=== PATIENT | female | born 1955 | race Caucasian/White ===

== ENCOUNTER → 2019-02-17 10:12 | Outpatient (CLI) | payer OTHER, SELFPAY ==
[2019-02-17 10:55] LABS: Add Manual Diff / Slide Review NO; Basophils Absolute Auto 100 /uL (0-100); Eosinophils Absolute Auto 200 /uL (0-450); Eosinophils Percent Auto 2.1 % (2-4); Hematocrit 50.1 % (36-46); Hemoglobin 16.6 g/dL (12.0-16.0); Lymphocytes Absolute Auto 2900 /uL (1100-4500); Lymphocytes Percent Auto 28.8 % (25-40); Mean Corpuscular HGB Conc 33.2 % (30-36); Mean Corpuscular Hemoglobin 29.2 PG (26-34); Monocytes Absolute Auto 700 /uL (0-900); Monocytes Percent Auto 6.9 % (3-14); Neutrophils Absolute Auto 6200 /uL (1500-7000); Neutrophils Percent Auto 61.2 % (50-75); Platelet Count 296 X10^3/uL (150-400); Red Blood Cell Count 5.69 X10^6/uL (4.0-5.2); Red Cell Distribution Width 13.9 % (11.6-14.8); White Blood Cell Count 10.2 X10^3/uL (4.5-11.0)
[2019-02-17 11:43] LABS: Alanine Aminotransferase 30 IU/L (9-52); Albumin 4.9 g/dL (3.5-5.0); Albumin Globulin Ratio 1.8 (1.0-2.8); Alkaline Phosphatase 84 U/L (38-126); Aspartate Aminotransferase 24 IU/L (14-36); BUN Creatinine Ratio 27.8 (6-22); Bilirubin Total 0.5 mg/dL (0.2-1.3); Bilirubin Unconjugated 0.2 mg/dL (0.0-1.1); Blood Urea Nitrogen 25 mg/dL (7-17); Calcium 10.6 mg/dL (8.4-10.2); Carbon Dioxide 26 mmol/L (22-32); Chloride 103 mmol/L (98-107); Estimated Glomerular Filt Rate > 60.0 mL/min (>60); Globulin 2.8 g/dL (1.7-4.1); Glucose 99 mg/dL (80-110); HEMOLYSIS < 15 (0-50); Potassium 4.4 mmol/L (3.4-5.1); Sodium 142 mmol/L (137-145); Total Protein 7.7 g/dL (6.3-8.2)
[2019-02-17 11:57] LABS: Free T4, Direct Thyroxine 0.91 ng/dL (0.78-2.19)
[2019-02-17 12:11] LABS: Thyroid Stimulating Hormone 2.64 uIU/mL (0.47-4.68)
== END ==
PROVIDERS: Visit Provider Psychiatry & Neurology Psychiatry
DX: F32.9 Major depressive disorder, single episode, unspecified (principal)
CPT/HCPCS: 36415; 80053; 80076; 84439; 84443; 85025

== ENCOUNTER → 2020-02-16 09:55 | Outpatient (CLI) | payer OTHER, SELFPAY ==
[2020-02-16 10:36] LABS: Hematocrit 43.1 % (36-46); Hemoglobin 14.6 g/dL (12.0-16.0); Mean Corpuscular HGB Conc 33.7 % (30-36); Mean Corpuscular Hemoglobin 29.6 PG (26-34); Mean Corpuscular Volume 87.7 fL (80-100); Platelet Count 299 X10^3/uL (150-400); Red Blood Cell Count 4.92 X10^6/uL (4.0-5.2); Red Cell Distribution Width 13.5 % (11.6-14.8); White Blood Cell Count 8.7 X10^3/uL (4.5-11.0)
[2020-02-16 10:43] LABS: Alanine Aminotransferase 17 IU/L (<35); Albumin 4.7 g/dL (3.5-5.0); Albumin Globulin Ratio 1.7 (1.0-2.8); Alkaline Phosphatase 81 U/L (38-126); Aspartate Aminotransferase 22 IU/L (14-36); BUN Creatinine Ratio 38.6 (6-22); Bilirubin Total 0.5 mg/dL (0.2-1.3); Blood Urea Nitrogen 34 mg/dL (7-17); Carbon Dioxide 24 mmol/L (22-32); Chloride 105 mmol/L (98-107); Estimated Glomerular Filt Rate > 60.0 mL/min (>60); Globulin 2.7 g/dL (1.7-4.1); Glucose 104 mg/dL (80-110); HEMOLYSIS < 15 (0-50); Potassium 4.6 mmol/L (3.4-5.1); Sodium 138 mmol/L (137-145); Total Protein 7.4 g/dL (6.3-8.2)
== END ==
PROVIDERS: Referring Provider Nurse Practitioner Family; Visit Provider Nurse Practitioner Family
DX: Z00.00 Encounter for general adult medical examination without abnormal findings (principal); I10 Essential (primary) hypertension
CPT/HCPCS: 36415; 80053; 85027

== ENCOUNTER → 2020-08-06 08:59 | Outpatient (CLI) | payer MEDICARE, OTHER, SELFPAY ==
--- NOTE | 2020-08-06 09:01 | DI.MG.S_ITS ---
BILATERAL DIGITAL SCREENING MAMMOGRAM 3D/2D WITH CAD: 08/06/2020 CLINICAL: Routine screening. Comparison is made to exams dated: 10/12/2009 mammogram and 10/22/2017 mammogram - outside location. The tissue of both breasts is heterogeneously dense. This may lower the sensitivity of mammography. Current study was also evaluated with a Computer Aided Detection (CAD) system. There are calcifications in the right breast. No significant masses, calcifications, or other findings are seen in either breast. There has been no significant interval change. IMPRESSION: BENIGN There is no mammographic evidence of malignancy. A 1 year screening mammogram is recommended. This exam was interpreted at Station ID: [id number]. NOTE: For mammograms, a report in lay terms will be sent to the patient. Approximately 15% of breast malignancies will not be visualized mammographically. In the management of a palpable breast mass, a negative mammogram must not discourage biopsy of a clinically suspicious lesion. Electronically Signed By: Romero Salas M.D. at/:08/08/2020 09:09:11 letter sent: Normal Exam ACR BI-RADS Category 2: Benign Finding(s) [id number]
== END ==
PROVIDERS: PCP Nurse Practitioner Family; Referring Provider Nurse Practitioner Family; Visit Provider Nurse Practitioner Family
DX: Z12.31 Encounter for screening mammogram for malignant neoplasm of breast (principal)
CPT/HCPCS: 77063; 77067

== ENCOUNTER → 2020-12-27 14:59 | Outpatient (CLI) | payer MEDICARE, OTHER, SELFPAY ==
--- NOTE | 2020-12-27 15:05 | DI.RAD.S_ITS ---
PROCEDURE: XR LUMBAR SPINE 2-3V INDICATIONS: pain TECHNIQUE: 3 views of the lumbar spine were acquired. COMPARISON: None. FINDINGS: Bones: 5 [id number] vertebrae are present. There is grade 1 retrolisthesis of L1 on L2, L2 on L3, L3 on L4-L4 on L5. The greatest retrolisthesis is L2 on L3 measuring 6 mm. Overall [id number] disc space narrowing is present throughout the lumbar spine most severe at L2-3, L3-4. Moderate foraminal narrowing is noted L5-S1. No vertebral body compression fractures. No suspicious bony lesions. Soft tissues: Overlying bowel gas pattern is normal. No suspicious soft tissue calcifications. IMPRESSION: Degenerative changes most notable at L5-S1. Dictated by: Kristin Naik M.D. on 12/27/2020 at 15:47 Approved by: Kristin Naik M.D. on 12/27/2020 at 15:55
== END ==
PROVIDERS: PCP Nurse Practitioner Family; Referring Provider Nurse Practitioner Family; Visit Provider Nurse Practitioner Family
DX: M51.37 Other intervertebral disc degeneration, lumbosacral region (principal)
CPT/HCPCS: 72100

== ENCOUNTER → 2021-01-02 08:01 | Outpatient (CLI) | payer MEDICARE, OTHER, SELFPAY ==
[2021-01-02 08:49] LABS: Hematocrit 41.8 % (36-46); Hemoglobin 13.8 g/dL (12.0-16.0); Mean Corpuscular HGB Conc 33.1 % (30-36); Mean Corpuscular Hemoglobin 29.2 PG (26-34); Mean Corpuscular Volume 88.2 fL (80-100); Platelet Count 317 X10^3/uL (150-400); Red Blood Cell Count 4.74 X10^6/uL (4.0-5.2); Red Cell Distribution Width 13.7 % (11.6-14.8); White Blood Cell Count 8.8 X10^3/uL (4.5-11.0)
[2021-01-02 09:38] LABS: Alanine Aminotransferase 17 IU/L (<35); Albumin 4.3 g/dL (3.5-5.0); Albumin Globulin Ratio 1.7 (1.0-2.8); Alkaline Phosphatase 68 U/L (38-126); Aspartate Aminotransferase 21 IU/L (14-36); BUN Creatinine Ratio 33.7 (6-22); Bilirubin Total 0.5 mg/dL (0.2-1.3); Blood Urea Nitrogen 33 mg/dL (7-17); Calcium 9.9 mg/dL (8.4-10.2); Carbon Dioxide 23 mmol/L (22-32); Chloride 102 mmol/L (98-107); Cholesterol 251 mg/dL (140-199); Globulin 2.5 g/dL (1.7-4.1); Glucose 93 mg/dL (80-110); HDL Cholesterol 68 mg/dL (40-60); HEMOLYSIS < 15 (0-50); LDL Cholesterol Calculated 163 mg/dL (<100); Potassium 4.9 mmol/L (3.4-5.1); Sodium 136 mmol/L (137-145); Total Protein 6.8 g/dL (6.3-8.2); Triglycerides 100 mg/dL (35-150)
[2021-01-02 18:27] LABS: Creatinine Urine Random 210.4 mg/dL
[2021-01-02 18:33] LABS: Microalbumi Creatinin Ratio Ur 4.7 ug/mg CR (<30)
== END ==
PROVIDERS: PCP Nurse Practitioner Family; Referring Provider Nurse Practitioner Family; Visit Provider Nurse Practitioner Family
DX: I10 Essential (primary) hypertension (principal); Z13.6 Encounter for screening for cardiovascular disorders
CPT/HCPCS: 36415; 80053; 80061; 82043; 82570; 85027

== ENCOUNTER → 2021-02-09 06:58 | Outpatient (CLI) | payer MEDICARE, OTHER, SELFPAY ==
--- NOTE | 2021-02-09 07:00 | DI.MRI.S_ITS ---
PROCEDURE: MR LUMBAR SPINE WO CON INDICATIONS: exac of back pain TECHNIQUE: Noncontrast sagittal T1 spin echo and T2 fast echo, sagittal STIR, axial T1 and T2 fast spin echo through the lumbar spine. In cases with scoliosis, additional coronal T2 fast spin echo may be performed. COMPARISON: [facility], CR, XR LUMBAR SPINE 2-3V, 12/27/2020, 15:31. FINDINGS: Image quality: Excellent. Alignment and Curvature: There is normal bony alignment. Bone Marrow: Marrow is of normal overall signal. No acute vertebral body compression fractures. Spinal Cord: Conus medullaris terminates at the L2 level. Visualized cord demonstrates normal signal and size. Paraspinous Soft Tissues: No paravertebral masses. T12-L1: Normal appearance. L1-L2: Normal appearance. L2-L3: Loss of disc signal and height. Mild to moderate diffuse disc bulge. Mild narrowing of the central canal. No neural foraminal narrowing. No neural compression. L3-L4: Loss of disc signal and height. Mild, diffuse disc bulge. Mild bilateral facet hypertrophy. Mild to moderate narrowing of the central canal. No neural foraminal narrowing. No neural compression. L4-L5: Loss of disc signal. Mild, diffuse disc bulge. Moderate left and mild right facet hypertrophy. Mild narrowing of the central canal. Mild left neural foraminal narrowing. No neural compression L5-S1: Loss of disc signal. Mild bilateral facet hypertrophy. No central stenosis. No neural foraminal narrowing. No neural compression. Fissure noted in the left foraminal annulus. IMPRESSION: 1. Multilevel degenerative disc disease. 2. Multilevel facet arthropathy. 3. No severe central canal narrowing. 4. No severe neural foraminal narrowing. 5. No neural compression. 6. L5-S1 disc annulus fissure. Dictated by: Violet Bazzi MD, PhD on 02/09/2021 at 12:02 Approved by: Violet Bazzi MD, PhD on 02/09/2021 at 12:04
== END ==
PROVIDERS: PCP Nurse Practitioner Family; Referring Provider Nurse Practitioner Family; Visit Provider Nurse Practitioner Family
DX: M54.5 Low back pain (principal); M51.36 Other intervertebral disc degeneration, lumbar region; M47.816 Spondylosis without myelopathy or radiculopathy, lumbar region; M47.817 Spondylosis without myelopathy or radiculopathy, lumbosacral region; G89.29 Other chronic pain
CPT/HCPCS: 72148

== ENCOUNTER → 2022-08-14 17:09 | Outpatient (CLI) | payer MEDICARE, OTHER, SELFPAY ==
[2022-08-14 18:13] LABS: Creatinine Urine Random 133.3 mg/dL
[2022-08-14 18:19] LABS: Microalbumin Urine Random 1.2 mg/dL (0-1.6)
== END ==
PROVIDERS: PCP Family Medicine; Referring Provider Family Medicine; Visit Provider Family Medicine
DX: E61.1 Iron deficiency (principal); E78.2 Mixed hyperlipidemia; I10 Essential (primary) hypertension
CPT/HCPCS: 82043; 82570

== ENCOUNTER → 2022-08-29 07:11 | Outpatient (CLI) | payer MEDICARE, OTHER, SELFPAY ==
[2022-08-29 08:17] LABS: Hemoglobin A1C% w Est Avg Glu 5.8 % (4.0-6.0)
[2022-08-29 08:31] LABS: Alanine Aminotransferase 18 IU/L (<35); Albumin 4.3 g/dL (3.5-5.0); Albumin Globulin Ratio 1.8 (1.0-2.8); Alkaline Phosphatase 66 U/L (38-126); Aspartate Aminotransferase 20 IU/L (14-36); Bilirubin Total 0.4 mg/dL (0.2-1.3); Blood Urea Nitrogen 27 mg/dL (7-17); Calcium 9.3 mg/dL (8.4-10.2); Carbon Dioxide 25 mmol/L (22-32); Chloride 103 mmol/L (98-107); Cholesterol 202 mg/dL (140-199); Estimated Glomerular Filt Rate > 60 mL/min (>60); Globulin 2.4 g/dL (1.7-4.1); Glucose 99 mg/dL (80-110); HDL Cholesterol 86 mg/dL (40-60); HEMOLYSIS < 15 (0-50); LDL Cholesterol Calculated 97 mg/dL (<100); Potassium 4.3 mmol/L (3.4-5.1); Sodium 138 mmol/L (137-145); Total Protein 6.7 g/dL (6.3-8.2); Triglycerides 93 mg/dL (35-150)
[2022-08-29 09:03] LABS: Ferritin 88 ng/mL (11-264)
[2022-08-31 08:36] LABS: Insulin Level Total 15.3 uIU/mL (2.6-24.9)
== END ==
PROVIDERS: PCP Family Medicine; Referring Provider Family Medicine; Visit Provider Family Medicine
DX: R73.9 Hyperglycemia, unspecified (principal); E61.1 Iron deficiency; I10 Essential (primary) hypertension; E78.2 Mixed hyperlipidemia; E66.9 Obesity, unspecified
CPT/HCPCS: 36415; 80053; 80061; 82728; 83036; 83525

== ENCOUNTER → 2023-03-11 16:48 | Outpatient (CLI) | payer MEDICARE, OTHER, SELFPAY ==
[2023-03-11 18:27] LABS: NT-proBNP (BNP-Adult 18+) 92 pg/mL (<125)
[2023-03-11 18:37] LABS: Alanine Aminotransferase 17 IU/L (<35); Albumin 4.5 g/dL (3.5-5.0); Albumin Globulin Ratio 1.6 (1.0-2.8); Alkaline Phosphatase 70 U/L (38-126); Aspartate Aminotransferase 24 IU/L (14-36); Bilirubin Total 0.4 mg/dL (0.2-1.3); Blood Urea Nitrogen 33 mg/dL (7-17); Calcium 9.8 mg/dL (8.4-10.2); Carbon Dioxide 23 mmol/L (22-32); Chloride 105 mmol/L (98-107); Estimated Glomerular Filt Rate 60 mL/min (>60); Globulin 2.8 g/dL (1.7-4.1); Glucose 107 mg/dL (80-110); HEMOLYSIS 20 (0-50); Potassium 3.7 mmol/L (3.4-5.1); Sodium 136 mmol/L (137-145); Total Protein 7.3 g/dL (6.3-8.2)
== END ==
PROVIDERS: Family Provider Family Medicine; PCP Family Medicine; Referring Provider Family Medicine; Visit Provider Family Medicine
DX: M79.89 Other specified soft tissue disorders (principal); F32.9 Major depressive disorder, single episode, unspecified; F41.9 Anxiety disorder, unspecified; M79.7 Fibromyalgia
CPT/HCPCS: 36415; 80053; 83880

== ENCOUNTER 2023-03-21 07:30 | Outpatient (RCR) | payer MEDICARE, OTHER, SELFPAY ==
--- NOTE | 2023-01-07 18:39 | PT.OIE ---
Current Diagnoses Pain in right shoulder (01/07/23) Cervicalgia (01/07/23) Low back pain, unspecified (01/07/23) Dorsalgia, unspecified (01/07/23) Pain in right arm (01/07/23) Past Medical History (Last Updated 11/28/22 @ 09:47 by Pinky Villafana DO) Acute exacerbation of chronic low back pain (11/2020) Anxiety (~1983) Chicken pox (~1964) Depression (~1983) Elevated blood pressure reading in office without diagnosis of hypertension Fibromyalgia (~2007) Former smoker Mixed hyperlipidemia (12/2020) Postmenopausal Visit Care Team Role Provider Type Pinky Villafana DO Attending Provider Physician Family Provider Primary Care Provider Referring Provider Specialty: Medical Address: [address] [place] [address], [facility] [address], [address] Email: [email or web address] Physical Therapy Initial Evaluation PT-OP-A Visit Information Start: 01/04/23 18:27 Freq: Status: Active Protocol: Document 01/07/23 08:03 LRN (Rec: 01/07/23 08:52 LRN [id number]) Out-Patient Physical Therapy Visit Information Visit Information Visit Type Initial Evaluation Visit Start Time 08:03 Visit Stop Time 08:51 Total Visit Minutes 48 Visit Number 1 Evaluation Information Evaluation Date 01/07/23 Precautions Precautions Multilevel DDD (L2-L3, L3-L4, L4-L5), depression, fibromyalgia PT-OP-B Current Condition Start: 01/04/23 18:27 Freq: Status: Active Protocol: Document 01/07/23 08:03 LRN (Rec: 01/07/23 08:52 LRN [id number]) Current Condition History of Current Condition Onset Date 1 yr ago. Current Complaints Essence LB, hip>thigh pain, groin pain, R neck/shoulder pain. History of Current Condition Pt reports the major problem is her spine. 5yr ago she was diagnosed with multiple pxs involving L2, L3, L4, L5 and was only able to tolerate water therapy for 2 yrs. She found it extremely helpful for 3 yrs. She was able to walk again. She now feels like her condition is back to what it was before having water therapy. Last year she tried to do what she did in the water previously and it was helpful but because of spousal illness and loss of her spouse, she was unable to continue her water exercise. Spouse last year. Pt reports her condition has progressively worsened and now she has pain in bilateral lower back, essence groin pelvic region, essence hips that radiates 1/2 [address] to knees (R>L ), and in the R neck/shoulder- brachium (pt is R handed). 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 Prior Treatments and Tests Five yrs ago did water therapy for 2 yrs. Two Chiropractor treatments. First time found helpful, not 2nd time (treatments 1.5 yrs ago and 3 months ago). 01/2021 MRI: Multilevel DDD ( L2-L3, L3-L4, L4-L5) with central canal narrowing L3-L4, L4-L5 and foraminal narrowing at L4-L5. Fissure noted in L5-S1 L foraminal annulus. Future Testing and Treatments Planned None Treatment Goals Patient/Caregiver Goals Pt goal is: - to avoid having cortisone injections in the spine; therefore wants to try PT to get better first, and to relieve R neck/arm pain. - Decrease LBP to 2-3/10 and be able to lift leg to put socks and lessen the feeling of weight in the legs so she can stand 20-30 minutes, -Be able to do activities without having to immediately sit afterwards. -No pain in R neck/shoulder/ arm. 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 Baseline Function- Recreation/Hobbies Quilter Current Functional Impairments (Reported) Functional Limitations- Mobility/Gait Can't stand do chores without having to immediately sit down . Sleeping is manageable. 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 PT-OP-C Subjective Start: 01/04/23 18:27 Freq: Status: Active Protocol: Document 01/07/23 08:03 LRN (Rec: 01/07/23 08:52 LRN [id number]) Patient Questionnaires Neck Disability Index NDI Score 21 Neck Disability Index Impairment 40 to 59% Impaired (Score 20- 29) Oswestry Low Back Index Oswestry Score 60 Oswestry Impairment 40 to 59% Impaired (Score 40- 59) Quick Dash- Upper Extremity Quick Dash UE Score 63.6 Quick Dash UE Impairment 60 to 79% Impaired (Score 60- 79) OP-PT Pain Assessment Pain Assessment Grid Paper Pain Assessment Grid Completed Yes Location L/S Pain Location Details Down spine and R lateral hip into bilateral groin. Intensity 7 Scale Used Numeric (0 - 10) Description Aching Description- Other toothache pain Frequency Constant R arm Pain Location Details R brachium Intensity 7 Scale Used Numeric (0 - 10) Description Aching Description- Other Toothache pain, increases with movement Frequency Constant PT-OP-H Neuro Start: 01/04/23 18:27 Freq: Status: Active Protocol: Document 01/07/23 08:03 LRN (Rec: 01/07/23 11:08 LRN [id number]) Sensation Evaluation Gross Sensation Gross Sensation WNL Deep Tendon Reflex & Clonus Assessment Deep Tendon Reflex Bilateral Patellar Deep Tendon Reflex 2+ Normal PT-OP-J Posture/Palpation/Skin Start: 01/04/23 18:27 Freq: Status: Active Protocol: Document 01/07/23 08:03 LRN (Rec: 01/07/23 08:52 LRN [id number]) Posture Evaluation Position Standing Head/C-Spine Posture Forward Head T-Spine Posture Increased Kyphosis L-Spine Posture Decreased Lordosis Shoulder Posture (R) Elevated Scapula Posture (R) Retracted Hip Posture (L) Externally Rotated Comments Posture Comments Dowagers hump, L leg larger in diameter PT-OP-K Range of Motion Start: 01/04/23 18:27 Freq: Status: Active Protocol: Document 01/07/23 08:03 LRN (Rec: 01/07/23 08:52 LRN [id number]) Lumbar Spine Range of Motion Lumbar Spine Active Degrees Testing Position Standing Flexion 48 Extension 15 Lateral Flexion Left 6 Lateral Flexion Right 6 Comments Pain with R SB. Hip Goniometric Range of Motion Hip Right Passive Testing Position Supine Straight Leg Raise 45 Internal Rotation 5 External Rotation 65 Left Passive Testing Position Supine Straight Leg Raise 60 Internal Rotation 10 External Rotation 75 PT-OP-L Special Tests Start: 06/16/23 18:27 Freq: Status: Active Protocol: Document 01/07/23 08:03 LRN (Rec: 01/07/23 08:52 LRN [id number]) Special Tests Cervical Spine Special Tests Spurling's Test Test Results - bilaterally Foraminal Compression Test Results - Upper Limb Tension Test Test Results + R ulnar n; tightness median and radial n. Lumbar Spine Special Tests Manual Traction Test Results + Comments Relief of pain Straight Leg Raise Test Results + bilaterally PT-OP-M Strength Start: 01/04/23 18:27 Freq: Status: Active Protocol: Document 01/07/23 08:03 LRN (Rec: 01/07/23 08:52 LRN [id number]) Hand Sprue Knocker/Pinch Strength Hand Dominance Hand Dominance Right Knee Strength Knee Manual Muscle Testing Right Flexion (S2) 4 Good Extension (L3) 5 Normal Left Flexion (S2) 4 Good Extension (L3) 5 Normal Ankle/Foot Strength Ankle and Foot Manual Muscle Testing Right Dorsiflexion (L4) 3 Fair Plantarflexion (S1) 5 Normal Left Dorsiflexion (L4) 4 Good Plantarflexion (S1) 5 Normal PT-OP-Q Treatments Start: 01/04/23 18:27 Freq: Status: Active Protocol: Document 01/07/23 08:03 LRN (Rec: 01/07/23 11:07 LRN [id number]) Self-Care/Home Management Treatment Education Patient Education Home Exercise Program,Pain Management Other Education Discussed results of evaluation, goals, and plan of care (POC). Pt agreeable to goals and POC. Briefly discussed use of hot/ cold for pain management. Activities Self-Care/Home Management Activities I/S pt in HEP: Cervical stretches: SB and Rot (10 SH) 2-3x/day or more; Improve postural awareness with posture correction when awake. PT-OP-T Assessment and Plan Start: 01/04/23 18:27 Freq: Status: Active Protocol: Document 01/07/23 08:03 LRN (Rec: 01/07/23 08:52 LRN [id number]) Physical Therapy Assessment Rehab Potential Rehabilitation Potential Good Evaluation Complexity Number of Personal Factors/Comorbidities 1-2 Number of Body Systems Impaired 4 or More Clinical Presentation at Evaluation Evolving Impairments Impairments Activity Tolerance,Gait,Pain, Posture,ROM,Sensation,Soft Tissue Mobility,Strength, Transfers Goals Three Impairment Decreased strength with decreased function Impairment JULIET 60, (40-59% impaired, score 40-59) Neck Disability 21 (40-59% impaired, score 20-29) UE QuickDASH 63.6 (60-795 impaired, score 60-79) Weakness LE's Short Term Goal (STG) Improve strength to improve function per JULIET score 20-39. STG Duration 02/21/23 Director Of Online Education Goal (LTG) Improve strength/endurance of LE's to be able to do activities (walking) without having to immediately sit afterwards. LTG Duration 04/07/23 Two Impairment Back/essence hip and groin/neck and arm pain Impairment Neck/arm pain rated 7/10. LBP essence groin pain rated 7/10. Short Term Goal (STG) Avoid having cortisone injections and relieve R neck/ arm pain. STG Duration 02/21/23 [facility] Goal (LTG) Decrease LBP to 2-3/10 and be able to lift leg to put socks and lessen the feeling of weight in the legs so she can stand 20-30 minutes, LTG Duration 04/07/23 One Impairment Lacks self care HEP, pt has self care aquatic program. Short Term Goal (STG) Pt will be educated in proper Posture, transfers, and body mechanics to minimize LBP onset. STG Duration 02/21/23 Director Of Online Education Goal (LTG) Pt will be educated in a self care HEP to improve mobility and core/neck stability to decrease pain. LTG Duration 04/07/23 Assessment Summary Assessment Pt is a 67 yo female who presents with + PSLR and UE/LE neural tension due to multilevel DDD (L2-L3, L3-L4, L4-L5). She presents with postural dysfunction and lack of self care techniques for pain management and exercises to promote improved function. The pt is functionally limited due to her pain and will benefit from skillled physical therapy to work towards achieving the above stated goals. The pt would benefit from an aquatic therapy that we do not provide at this time; therefore the pt is encouraged to try and resume some of the water therapy ex's that she was previously instructed in during her prior therapy rehab program. Physical Therapy Plan Frequency and Duration Frequency of Treatment 2x/Week Plan of Care Start Date 01/07/23 Plan of Care End Date 04/07/23 Therapeutic Interventions Therapeutic Interventions Home Exercise Program,Joint Mobilizations,Manual Therapy, Neuromuscular Re-education, Patient/Caregiver Education, Self-Care/Home Management,Soft Tissue Mobilization,Taping, Therapeutic Activities, Therapeutic Exercises Modalities Cold Pack/Ice Massage,Electric Stimulation,Hot Packs, Traction- Mechanical, Ultrasound Next Visit Focus/Plan Next Note Type Treatment Note Next Visit Plan Assess achillies, UE DTRs; Lumbar/cervical/shoulder soft tissue palp; strength ankle EV /IV, hip/trunk/cervical-UE; ROM of LB,neck; Special Tests: [facility]. POC: Lumbar herniated disc rehab, cervical soft tissue dysfunction rehab. Manual: lumbar traction, mob of T/S and. Ex: Core stab and Cervical posture stab & ROM, C. stretches, pec stretch. Neural: Stab & Sciatic ( gentle)/UE neural glides. Educ: Posture, transfer training, body mechanics. Modalities: Education in pain managment, ?Ktape, MH/IFES.
--- NOTE | 2023-01-07 18:40 | PT.OPPOC ---
Physical, Occupational & Speech Therapy At [facility] Current Diagnoses Pain in right shoulder (01/07/23) Cervicalgia (01/07/23) Low back pain, unspecified (01/07/23) Dorsalgia, unspecified (01/07/23) Pain in right arm (01/07/23) Visit Care Team Role Provider Type Pinky Villafana DO Attending Provider Physician Family Provider Primary Care Provider Referring Provider Specialty: Medical Address: [address] [place] [address], [address], [address] Email: [email or web address] Plan Of Care PT-OP-T Assessment and Plan Start: 01/04/23 18:27 Freq: Status: Active Protocol: Document 01/07/23 08:03 LRN (Rec: 01/07/23 08:52 LRN [id number]) Physical Therapy Assessment Rehab Potential Rehabilitation Potential Good Evaluation Complexity Number of Personal Factors/Comorbidities 1-2 Number of Body Systems Impaired 4 or More Clinical Presentation at Evaluation Evolving Impairments Impairments Activity Tolerance,Gait,Pain, Posture,ROM,Sensation,Soft Tissue Mobility,Strength, Transfers Goals Three Impairment Decreased strength with decreased function Impairment JULIET 60, (40-59% impaired, score 40-59) Neck Disability 21 (40-59% impaired, score 20-29) UE QuickDASH 63.6 (60-795 impaired, score 60-79) Weakness LE's Short Term Goal (STG) Improve strength to improve function per JULIET score 20-39. STG Duration 02/21/23 [facility] Goal (LTG) Improve strength/endurance of LE's to be able to do activities (walking) without having to immediately sit afterwards. LTG Duration 04/07/23 Two Impairment Back/essence hip and groin/neck and arm pain Impairment Neck/arm pain rated 7/10. LBP essence groin pain rated 7/10. Short Term Goal (STG) Avoid having cortisone injections and relieve R neck/ arm pain. STG Duration 02/21/23 Purchasing Administrator Goal (LTG) Decrease LBP to 2-3/10 and be able to lift leg to put socks and lessen the feeling of weight in the legs so she can stand 20-30 minutes, LTG Duration 04/07/23 One Impairment Lacks self care HEP, pt has self care aquatic program. Short Term Goal (STG) Pt will be educated in proper Posture, transfers, and body mechanics to minimize LBP onset. STG Duration 02/21/23 [facility] Goal (LTG) Pt will be educated in a self care HEP to improve mobility and core/neck stability to decrease pain. LTG Duration 04/07/23 Assessment Summary Assessment Pt is a 67 yo female who presents with + PSLR and UE/LE neural tension due to multilevel DDD (L2-L3, L3-L4, L4-L5). She presents with postural dysfunction and lack of self care techniques for pain management and exercises to promote improved function. The pt is functionally limited due to her pain and will benefit from skillled physical therapy to work towards achieving the above stated goals. The pt would benefit from an aquatic therapy that we do not provide at this time; therefore the pt is encouraged to try and resume some of the water therapy ex's that she was previously instructed in during her prior therapy rehab program. Physical Therapy Plan Frequency and Duration Frequency of Treatment 2x/Week Plan of Care Start Date 01/07/23 Plan of Care End Date 04/07/23 Therapeutic Interventions Therapeutic Interventions Home Exercise Program,Joint Mobilizations,Manual Therapy, Neuromuscular Re-education, Patient/Caregiver Education, Self-Care/Home Management,Soft Tissue Mobilization,Taping, Therapeutic Activities, Therapeutic Exercises Modalities Cold Pack/Ice Massage,Electric Stimulation,Hot Packs, Traction- Mechanical, Ultrasound Next Visit Focus/Plan Next Note Type Treatment Note Next Visit Plan Assess achillies, UE DTRs; Lumbar/cervical/shoulder soft tissue palp; strength ankle EV /IV, hip/trunk/cervical-UE; ROM of LB,neck; Special Tests: [facility]. POC: Lumbar herniated disc rehab, cervical soft tissue dysfunction rehab. Manual: lumbar traction, mob of T/S and. Ex: Core stab and Cervical posture stab & ROM, C. stretches, pec stretch. Neural: Stab & Sciatic ( gentle)/UE neural glides. Educ: Posture, transfer training, body mechanics. Modalities: Education in pain managment, ?Ktape, MH/IFES. Plan of Care Dates Plan of Care Start Date 01/07/23 Plan of Care End Date 04/07/23 Electronically Signed by: Lucrecia Brink, PT 01/07/23 6204 If you are in agreement with this Plan of Care, please return a signed and dated copy. I have reviewed this Plan of Care and certify that the skilled therapy services above are required to meet the patient?s needs. Physician Signature Date Printed Name and Credentials Clinical Instructor Signature Printed Name and Credentials
--- NOTE | 2023-01-11 16:13 | PT.OTN ---
Current Diagnoses Pain in right shoulder (01/11/23) Cervicalgia (01/11/23) Low back pain, unspecified (01/11/23) Dorsalgia, unspecified (01/11/23) Pain in right arm (01/11/23) Physical Therapy Treatment Note PT-OP-A Visit Information Start: 01/04/23 18:27 Freq: Status: Active Protocol: Document 01/11/23 15:03 LRN (Rec: 01/11/23 16:12 LRN [id number]) Out-Patient Physical Therapy Visit Information Visit Information Visit Type Treatment Note Visit Start Time 15:03 Visit Stop Time 15:47 Total Visit Minutes 43 Visit Number 2 Evaluation Information Evaluation Date 01/07/23 Precautions Precautions Multilevel DDD (L2-L3, L3-L4, L4-L5), depression, fibromyalgia PT-OP-B Current Condition Start: 01/04/23 18:27 Freq: Status: Active Protocol: Document 01/07/23 08:03 LRN (Rec: 01/07/23 08:52 LRN [id number]) Current Condition History of Current Condition Onset Date 1 yr ago. Current Complaints Cullen LB, hip>thigh pain, groin pain, R neck/shoulder pain. History of Current Condition Pt reports the major problem is her spine. 5yr ago she was diagnosed with multiple pxs involving L2, L3, L4, L5 and was only able to tolerate water therapy for 2 yrs. She found it extremely helpful for 3 yrs. She was able to walk again. She now feels like her condition is back to what it was before having water therapy. Last year she tried to do what she did in the water previously and it was helpful but because of spousal illness and loss of her spouse, she was unable to continue her water exercise. Spouse last year. Pt reports her condition has progressively worsened and now she has pain in bilateral lower back, cullen groin pelvic region, cullen hips that radiates 1/2 [address] to knees (R>L ), and in the R neck/shoulder- brachium (pt is R handed). 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 Prior Treatments and Tests Five yrs ago did water therapy for 2 yrs. Two Chiropractor treatments. First time found helpful, not 2nd time (treatments 1.5 yrs ago and 3 months ago). 01/2021 MRI: Multilevel DDD ( L2-L3, L3-L4, L4-L5) with central canal narrowing L3-L4, L4-L5 and foraminal narrowing at L4-L5. Fissure noted in L5-S1 L foraminal annulus. Future Testing and Treatments Planned None Treatment Goals Patient/Caregiver Goals Pt goal is: - to avoid having cortisone injections in the spine; therefore wants to try PT to get better first, and to relieve R neck/arm pain. - Decrease LBP to 2-3/10 and be able to lift leg to put socks and lessen the feeling of weight in the legs so she can stand 20-30 minutes, -Be able to do activities without having to immediately sit afterwards. -No pain in R neck/shoulder/ arm. 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 Baseline Function- Recreation/Hobbies Quilter Current Functional Impairments (Reported) Functional Limitations- Mobility/Gait Can't stand do chores without having to immediately sit down . Sleeping is manageable. 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 PT-OP-C Subjective Start: 01/04/23 18:27 Freq: Status: Active Protocol: Document 01/11/23 15:03 LRN (Rec: 01/11/23 16:12 LRN [id number]) OP-PT Subjective Patient Comments Patient Comments Same. Pain rated 4/10 to start in neck and back. Post therapy pain in LB/neck rated 0/10. Pt reported only discomfort was in the L brachium. PT-OP-H Neuro Start: 01/04/23 18:27 Freq: Status: Active Protocol: Document 01/07/23 08:03 LRN (Rec: 01/07/23 11:08 LRN [id number]) Sensation Evaluation Gross Sensation Gross Sensation WNL Deep Tendon Reflex & Clonus Assessment Deep Tendon Reflex Bilateral Patellar Deep Tendon Reflex 2+ Normal PT-OP-J Posture/Palpation/Skin Start: 01/04/23 18:27 Freq: Status: Active Protocol: Document 01/11/23 15:03 LRN (Rec: 01/11/23 16:12 LRN [id number]) Palpation Assessment Location Thoracic region Palpation Location Thoracic T1-T6 Paraspinals and Spinous processes Palpation Findings Soft Tissue Tightness, Tenderness Palpation Details Spinous processess tender with PA glides. Shoulders Palpation Location Cullen Deltoids Palpation Findings Tenderness Palpation Details General deltoids. Cervical region Palpation Location Subocciptal and paraspinals Palpation Findings Soft Tissue Tightness, Tenderness Palpation Details Tight L>R UT and paraspinals PT-OP-K Range of Motion Start: 01/04/23 18:27 Freq: Status: Active Protocol: Document 01/11/23 15:03 LRN (Rec: 01/11/23 16:12 LRN [id number]) Cervical Spine Range of Motion Cervical Spine Active Degrees Testing Position Sitting Flexion 21 Extension 38 Rotation Left 48 Rotation Right 48 Lateral Flexion Left 13 Lateral Flexion Right 20 PT-OP-L Special Tests Start: 01/04/23 18:27 Freq: Status: Active Protocol: Document 01/11/23 15:03 LRN (Rec: 01/11/23 16:12 LRN [id number]) Special Tests Cervical Spine Special Tests Vertebral Artery Test Results - Right side, Lumbar Spine Special Tests Manual Traction Test Results + Comments Relief of pain PT-OP-M Strength Start: 01/04/23 18:27 Freq: Status: Active Protocol: Document 01/11/23 15:03 LRN (Rec: 01/11/23 16:12 LRN [id number]) Cervical Spine Strength Cervical Spine Manual Muscle Testing Testing Position Sitting Flexion (C1-2) 5 Normal Extension 5 Normal Rotation Left 3 Fair Rotation Right 3 Fair Lateral Flexion Left (C3) 5 Normal Lateral Flexion Right (C3) 5 Normal PT-OP-Q Treatments Start: 01/04/23 18:27 Freq: Status: Active Protocol: Document 01/11/23 15:03 LRN (Rec: 01/11/23 16:12 LRN [id number]) Therapeutic Exercises Supine Exercises C. PROM stretch Supine Exercise Name Rotation Side bilateral Reps/Minutes 5' Sitting Exercises Yvan C. strengthenign Sitting Exercise Name Yvan C Strengthening Side bilateral C. AROM Sitting Exercise Name C AROM - FB, Ext, SB, Rot Side bilateral Comments C. AROM taken. Manual Therapy Treatment Soft Tissue Mobilization Subocciptal Body Location Suboccipital Mobilization Type Sustained Pressure Intensity/Depth Superficial Body Position Hooklying Manual Traction Lumbar Details Traction w/belt Body Position Hooklying Reps/Duration 8' Self-Care/Home Management Treatment Education Patient Education Body Mechanics,Joint Protection Other Education Educated and discussed proper log roll transfer sit<>supine. Pt education and brief discussion of proper body mechanics for ADLs. Activities Self-Care/Home Management Activities Issued handout for log roll transfer and body mechanics for ADLs. I/S pt to continue with log roll transfers and proper body mechanics for movement. PT-OP-R Modalities Start: 01/04/23 18:27 Freq: Status: Active Protocol: Document 01/11/23 15:03 LRN (Rec: 01/11/23 16:12 LRN [id number]) Electric Stimulation Electric Stimulation Interferential Current (IFC) Body Location L2>Upper gluteals, cross ~L3- L4 Duration (Minutes) 10 Intensity 33 Target/Sweep Sweep Patient Position Hooklying Combined With Heat/Cold Hot Pack Comments Legs on bolster. 5' Extra to for set up. PT-OP-T Assessment and Plan Start: 01/04/23 18:27 Freq: Status: Active Protocol: Document 01/11/23 15:03 LRN (Rec: 01/11/23 16:12 LRN [id number]) Physical Therapy Assessment Goals Three Impairment Decreased strength with decreased function Impairment JULIET 60, (40-59% impaired, score 40-59) Neck Disability 21 (40-59% impaired, score 20-29) UE QuickDASH 63.6 (60-795 impaired, score 60-79) Weakness LE's Short Term Goal (STG) Improve strength to improve function per JULIET score 20-39. STG Duration 02/21/23 [place] Goal (LTG) Improve strength/endurance of LE's to be able to do activities (walking) without having to immediately sit afterwards. LTG Duration 04/07/23 Two Impairment Back/cullen hip and groin/neck and arm pain Impairment Neck/arm pain rated 7/10. LBP cullen groin pain rated 7/10. Short Term Goal (STG) Avoid having cortisone injections and relieve R neck/ arm pain. STG Duration 02/21/23 Correction Goal (LTG) Decrease LBP to 2-3/10 and be able to lift leg to put socks and lessen the feeling of weight in the legs so she can stand 20-30 minutes, LTG Duration 04/07/23 One Impairment Lacks self care HEP, pt has self care aquatic program. Short Term Goal (STG) Pt will be educated in proper Posture, transfers, and body mechanics to minimize LBP onset. 01/11/23: Educated pt in proper transfers and body mechanics. STG Duration 02/21/23 progressed 01/11/23 (need posture training) Correction Goal (LTG) Pt will be educated in a self care HEP to improve mobility and core/neck stability to decrease pain. LTG Duration 04/07/23 Assessment Summary Assessment Pt presents with + PSLR and UE /LE neural tension due to multilevel DDD (L2-L3, L3-L4, L4-L5), postural dysfunction and lacks pain management techniques and HEP. Request of focus more on spine/LE's so pt can walk. Today, pain is on the L side, but is usually on R side of neck. - Vertebral Artery test bilaterally. Mild decr in neck mobility for flex, ext, SB, and weakness with C/S rotation . Pt had + response to Lumbar traction and MH/EStim to LB, with lingering of tingling after ending stim; therefore pt wanting too high intensity of EStim. Pt reported more intensity, but withheld at 33. Physical Therapy Plan Frequency and Duration Frequency of Treatment 2x/Week Plan of Care Start Date 01/07/23 Plan of Care End Date 04/07/23 Next Visit Focus/Plan Next Note Type Treatment Note Next Visit Plan Focus on spine to decrease pain with walking. Assess achillies ankle & LB ROM, UE DTRs; Lumbar soft tissue palp; strength ankle EV/IV, hip/ trunk/?shoulder. POC: Lumbar herniated disc rehab, cervical soft tissue dysfunction rehab. Manual: lumbar traction, mob of T/S and. Ex: Core stab and Cervical posture stab & ROM, C. stretches (issue HEP), pec stretch. Neural: Stab & Sciatic ( gentle)/UE neural glides. Educ: Posture. Modalities: Education in pain managment, ?Ktape, continue MH/IFES.
--- NOTE | 2023-01-14 10:53 | PT.OTN ---
Current Diagnoses Pain in right shoulder (01/14/23) Cervicalgia (01/14/23) Low back pain, unspecified (01/14/23) Dorsalgia, unspecified (01/14/23) Pain in right arm (01/14/23) Physical Therapy Treatment Note PT-OP-A Visit Information Start: 01/04/23 18:27 Freq: Status: Active Protocol: Document 01/14/23 08:54 LRN (Rec: 01/14/23 09:35 LRN [id number]) Out-Patient Physical Therapy Visit Information Visit Information Visit Type Treatment Note Visit Start Time 08:55 Visit Stop Time 09:40 Total Visit Minutes 45 Visit Number 3 Evaluation Information Evaluation Date 01/07/23 Precautions Precautions Multilevel DDD (L2-L3, L3-L4, L4-L5), depression, fibromyalgia PT-OP-B Current Condition Start: 01/04/23 18:27 Freq: Status: Active Protocol: Document 01/07/23 08:03 LRN (Rec: 01/07/23 08:52 LRN [id number]) Current Condition History of Current Condition Onset Date 1 yr ago. Current Complaints Cullen LB, hip>thigh pain, groin pain, R neck/shoulder pain. History of Current Condition Pt reports the major problem is her spine. 5yr ago she was diagnosed with multiple pxs involving L2, L3, L4, L5 and was only able to tolerate water therapy for 2 yrs. She found it extremely helpful for 3 yrs. She was able to walk again. She now feels like her condition is back to what it was before having water therapy. Last year she tried to do what she did in the water previously and it was helpful but because of spousal illness and loss of her spouse, she was unable to continue her water exercise. Spouse last year. Pt reports her condition has progressively worsened and now she has pain in bilateral lower back, cullen groin pelvic region, cullen hips that radiates 1/2 way to knees (R>L ), and in the R neck/shoulder- brachium (pt is R handed). 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 Prior Treatments and Tests Five yrs ago did water therapy for 2 yrs. Two Chiropractor treatments. First time found helpful, not 2nd time (treatments 1.5 yrs ago and 3 months ago). 01/2021 MRI: Multilevel DDD ( L2-L3, L3-L4, L4-L5) with central canal narrowing L3-L4, L4-L5 and foraminal narrowing at L4-L5. Fissure noted in L5-S1 L foraminal annulus. Future Testing and Treatments Planned None Treatment Goals Patient/Caregiver Goals Pt goal is: - to avoid having cortisone injections in the spine; therefore wants to try PT to get better first, and to relieve R neck/arm pain. - Decrease LBP to 2-3/10 and be able to lift leg to put socks and lessen the feeling of weight in the legs so she can stand 20-30 minutes, -Be able to do activities without having to immediately sit afterwards. -No pain in R neck/shoulder/ arm. 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 Baseline Function- Recreation/Hobbies Quilter Current Functional Impairments (Reported) Functional Limitations- Mobility/Gait Can't stand do chores without having to immediately sit down . Sleeping is manageable. 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 PT-OP-C Subjective Start: 01/04/23 18:27 Freq: Status: Active Protocol: Document 01/14/23 08:54 LRN (Rec: 01/14/23 09:35 LRN [id number]) OP-PT Subjective Patient Comments Patient Comments Pain relief for 8 hrs in the pelvic (anterior groin) and hips and down legs on the sides. The neck/shoulder feels better except at R elbow . Last night unable to sleep on R side at all sometimes can sleep on it 10 minutes or so PT-OP-H Neuro Start: 01/04/23 18:27 Freq: Status: Active Protocol: Document 01/14/23 08:54 LRN (Rec: 01/14/23 10:52 LRN [id number]) Deep Tendon Reflex & Clonus Assessment Deep Tendon Reflex Bilateral Tricep Deep Tendon Reflex 2+ Normal Bilateral Bicep Deep Tendon Reflex 2+ Normal PT-OP-J Posture/Palpation/Skin Start: 01/04/23 18:27 Freq: Status: Active Protocol: Document 01/11/23 15:03 LRN (Rec: 01/11/23 16:12 LRN [id number]) Palpation Assessment Location Thoracic region Palpation Location Thoracic T1-T6 Paraspinals and Spinous processes Palpation Findings Soft Tissue Tightness, Tenderness Palpation Details Spinous processess tender with PA glides. Shoulders Palpation Location Cullen Deltoids Palpation Findings Tenderness Palpation Details General deltoids. Cervical region Palpation Location Subocciptal and paraspinals Palpation Findings Soft Tissue Tightness, Tenderness Palpation Details Tight L>R UT and paraspinals PT-OP-K Range of Motion Start: 01/04/23 18:27 Freq: Status: Active Protocol: Document 01/14/23 08:54 LRN (Rec: 01/14/23 09:35 LRN [id number]) Lumbar Spine Range of Motion Lumbar Spine Active Degrees Testing Position Standing Rotation Left 10 Rotation Right 0 Ankle and Foot Goniometric Range of Motion Ankle and Foot Right Active Testing Position Supine Dorsiflexion with Knee Extended 5 Plantarflexion 50 Left Active Testing Position Supine Dorsiflexion with Knee Extended 2 Plantarflexion 50 PT-OP-L Special Tests Start: 01/04/23 18:27 Freq: Status: Active Protocol: Document 01/11/23 15:03 LRN (Rec: 01/11/23 16:12 LRN [id number]) Special Tests Cervical Spine Special Tests Vertebral Artery Test Results - Right side, Lumbar Spine Special Tests Manual Traction Test Results + Comments Relief of pain PT-OP-M Strength Start: 01/04/23 18:27 Freq: Status: Active Protocol: Document 01/11/23 15:03 LRN (Rec: 01/11/23 16:12 LRN [id number]) Cervical Spine Strength Cervical Spine Manual Muscle Testing Testing Position Sitting Flexion (C1-2) 5 Normal Extension 5 Normal Rotation Left 3 Fair Rotation Right 3 Fair Lateral Flexion Left (C3) 5 Normal Lateral Flexion Right (C3) 5 Normal PT-OP-Q Treatments Start: 01/04/23 18:27 Freq: Status: Active Protocol: Document 01/14/23 08:54 LRN (Rec: 01/14/23 09:35 LRN [id number]) Therapeutic Exercises Supine Exercises Ankle DF PROM Supine Exercise Name Ankle DF stretch Side bilateral Reps/Minutes 5' Sitting Exercises Sciatic active n glide Sitting Exercise Name Kick head off w/o head mvmt Side bilateral Reps/Minutes 6' LE neural stretch Sitting Exercise Name Knee ext w/ankle DF Side bilateral Reps/Minutes 3' Comments Extra time to determine max toleraed stretch Standing Exercises Ankle DF stretch Standing Exercise Name Runner's stretch Side bilateral Reps/Minutes 6' Trunk AROM Standing Exercise Name Trunk Rot AROM Side bilateral Reps/Minutes 3' Self-Care/Home Management Treatment Education Patient Education Home Exercise Program Activities Self-Care/Home Management Activities Issued & reviewed HEP of ankle DF stretch. PT-OP-R Modalities Start: 01/04/23 18:27 Freq: Status: Active Protocol: Document 01/14/23 08:54 LRN (Rec: 01/14/23 09:35 LRN [id number]) Electric Stimulation Electric Stimulation Pre-Modulated Body Location UT>Lower gluteal - bilateral Duration (Minutes) 15 Intensity 28 Patient Position Hooklying Combined With Heat/Cold Hot Pack Comments Bolster under legs. 2' set up PT-OP-T Assessment and Plan Start: 01/04/23 18:27 Freq: Status: Active Protocol: Document 01/14/23 08:54 LRN (Rec: 01/14/23 09:35 LRN [id number]) Physical Therapy Assessment Goals Three Impairment Decreased strength with decreased function Impairment JULIET 60, (40-59% impaired, score 40-59) Neck Disability 21 (40-59% impaired, score 20-29) UE QuickDASH 63.6 (60-795 impaired, score 60-79) Weakness LE's Short Term Goal (STG) Improve strength to improve function per JULIET score 20-39. STG Duration 02/21/23 Long-Term Goal (LTG) Improve strength/endurance of LE's to be able to do activities (walking) without having to immediately sit afterwards. LTG Duration 04/07/23 Two Impairment Back/cullen hip and groin/neck and arm pain Impairment Neck/arm pain rated 7/10. LBP cullen groin pain rated 7/10. Short Term Goal (STG) Avoid having cortisone injections and relieve R neck/ arm pain. 01/14/23: Pain at R elbow only . 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 01/14/23: 8 hrs pain relief after last session. LTG Duration 04/07/23 temporary progression 01/14/23 One Impairment Lacks self care HEP, pt has self care aquatic program. Short Term Goal (STG) Pt will be educated in proper Posture, transfers, and body mechanics to minimize LBP onset. 01/11/23: Educated pt in proper transfers and body mechanics. STG Duration 02/21/23 progressed 01/11/23 (need posture training) [employer] Goal (LTG) Pt will be educated in a self care HEP to improve mobility and core/neck stability to decrease pain. LTG Duration 04/07/23 Assessment Summary Assessment Pt has multilevel DDD (L2-L3, L3-L4, L4-L5) and UE/LE neural tension, +PSLR, postural dysfunction. Very limited trunk rot, R>L; and limited ankle DF L>R. UE DTR's are normal and ankle EV/IV is normal. Physical Therapy Plan Frequency and Duration Frequency of Treatment 2x/Week Plan of Care Start Date 01/07/23 Plan of Care End Date 04/07/23 Next Visit Focus/Plan Next Note Type Treatment Note Next Visit Plan Educate pt in proper posture ( sit/stand) and with daily activities. Focus on spine to decrease pain with walking. Assess Lumbar soft tissue palp ; assess strength hip/trunk/? shoulder. POC: Lumbar herniated disc rehab, cervical soft tissue dysfunction rehab. Manual: lumbar traction, mob of T/S and. Ex: Core stab and Cervical posture stab & ROM, C. stretches (issue HEP), pec stretch. Neural: Stab & Sciatic ( gentle)/UE neural glides. Educ: Posture. Modalities: Education in pain managment, ?Ktape, continue MH/IFES.
--- NOTE | 2023-01-17 09:45 | PT.OTN ---
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 Current Complaints Essence LB, hip>thigh pain, groin pain, R neck/shoulder pain. History of Current Condition Pt reports the major problem is her spine. 5yr ago she was diagnosed with multiple pxs involving L2, L3, L4, L5 and was only able to tolerate water therapy for 2 yrs. She found it extremely helpful for 3 yrs. She was able to walk again. She now feels like her condition is back to what it was before having water therapy. Last year she tried to do what she did in the water previously and it was helpful but because of spousal illness and loss of her spouse, she was unable to continue her water exercise. Spouse last year. Pt reports her condition has progressively worsened and now she has pain in bilateral lower back, essence groin pelvic region, essence hips that radiates 1/[address] to knees (R>L ), and in the R neck/shoulder- brachium (pt is R handed). 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 Prior Treatments and Tests Five yrs ago did water therapy for 2 yrs. Two Chiropractor treatments. First time found helpful, not 2nd time (treatments 1.5 yrs ago and 3 months ago). 01/2021 MRI: Multilevel DDD ( L2-L3, L3-L4, L4-L5) with central canal narrowing L3-L4, L4-L5 and foraminal narrowing at L4-L5. Fissure noted in L5-S1 L foraminal annulus. Future Testing and Treatments Planned None Treatment Goals Patient/Caregiver Goals Pt goal is: - to avoid having cortisone injections in the spine; therefore wants to try PT to get better first, and to relieve R neck/arm pain. - Decrease LBP to 2-3/10 and be able to lift leg to put socks and lessen the feeling of weight in the legs so she can stand 20-30 minutes, -Be able to do activities without having to immediately sit afterwards. -No pain in R neck/shoulder/ arm. 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 Baseline Function- Recreation/Hobbies Quilter Current Functional Impairments (Reported) Functional Limitations- Mobility/Gait Can't stand do chores without having to immediately sit down . Sleeping is manageable. 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 PT-OP-C Subjective Start: 01/04/23 18:27 Freq: Status: Active Protocol: Document 01/17/23 08:58 SP (Rec: 01/17/23 09:50 SP [id number]) OP-PT Subjective Patient Comments Patient Comments Pt reports having pain over anterior groin area RLE today more than lateral thigh. Is compliant with HEP. PT-OP-H Neuro Start: 01/04/23 18:27 Freq: Status: Active Protocol: Document 01/14/23 08:54 LRN (Rec: 01/14/23 10:52 LRN [id number]) Deep Tendon Reflex & Clonus Assessment Deep Tendon Reflex Bilateral Tricep Deep Tendon Reflex 2+ Normal Bilateral Bicep Deep Tendon Reflex 2+ Normal PT-OP-J Posture/Palpation/Skin Start: 01/04/23 18:27 Freq: Status: Active Protocol: Document 01/11/23 15:03 LRN (Rec: 01/11/23 16:12 LRN [id number]) Palpation Assessment Location Thoracic region Palpation Location Thoracic T1-T6 Paraspinals and Spinous processes Palpation Findings Soft Tissue Tightness, Tenderness Palpation Details Spinous processess tender with PA glides. Shoulders Palpation Location Essence Deltoids Palpation Findings Tenderness Palpation Details General deltoids. Cervical region Palpation Location Subocciptal and paraspinals Palpation Findings Soft Tissue Tightness, Tenderness Palpation Details Tight L>R UT and paraspinals PT-OP-K Range of Motion Start: 01/04/23 18:27 Freq: Status: Active Protocol: Document 01/14/23 08:54 LRN (Rec: 01/14/23 09:35 LRN [id number]) Lumbar Spine Range of Motion Lumbar Spine Active Degrees Testing Position Standing Rotation Left 10 Rotation Right 0 Ankle and Foot Goniometric Range of Motion Ankle and Foot Right Active Testing Position Supine Dorsiflexion with Knee Extended 5 Plantarflexion 50 Left Active Testing Position Supine Dorsiflexion with Knee Extended 2 Plantarflexion 50 PT-OP-L Special Tests Start: 01/04/23 18:27 Freq: Status: Active Protocol: Document 01/11/23 15:03 LRN (Rec: 01/11/23 16:12 LRN [id number]) Special Tests Cervical Spine Special Tests Vertebral Artery Test Results - Right side, Lumbar Spine Special Tests Manual Traction Test Results + Comments Relief of pain PT-OP-M Strength Start: 01/04/23 18:27 Freq: Status: Active Protocol: Document 01/11/23 15:03 LRN (Rec: 01/11/23 16:12 LRN [id number]) Cervical Spine Strength Cervical Spine Manual Muscle Testing Testing Position Sitting Flexion (C1-2) 5 Normal Extension 5 Normal Rotation Left 3 Fair Rotation Right 3 Fair Lateral Flexion Left (C3) 5 Normal Lateral Flexion Right (C3) 5 Normal PT-OP-Q Treatments Start: 01/04/23 18:27 Freq: Status: Active Protocol: Document 01/17/23 08:58 SP (Rec: 01/17/23 09:50 SP [id number]) Therapeutic Exercises Supine Exercises Sorin Stretch Supine Exercise Name added to HEP Side left Reps/Minutes 20 x2 Comments cued TA/PPT if needed, good stretch and already doing home FIg 4 stretch Supine Exercise Name added to HEP Side right Resistance plantar ft facing L inner thigh Reps/Minutes 20 x 2 Comments good feedback stretch (pain ankle over opp knee) Sitting Exercises piriformis stretch Sitting Exercise Name added HEP: resting stretch, IR , ER Resistance R>L Reps/Minutes 20SH x2 R, encouraged bilateral home Comments good feedback stretch sit stand Sitting Exercise Name added HEP Resistance arms across chest Reps/Minutes x10 Comments cued scoot fwd seat, hip hinge wt shift fwd straight back, slow desc- impr Sciatic active n glide Sitting Exercise Name Kick head off w/o head mvmt- Gave HO Side bilateral Reps/Minutes 2 min Comments cued form- no pain LE neural stretch Sitting Exercise Name Knee ext w/ankle DF- gave HO Side bilateral Reps/Minutes 3' Comments cued hip hinge time find max stretch- no pain Standing Exercises self STMs Standing Exercise Name seated rolling pin: quad, ITB, calf Equipment Used ball wall: TFL, glut, Low back Reps/Minutes 2 min Comments good feedback less tension over front and lateral thigh will continue home Manual Therapy Treatment Soft Tissue Mobilization R hip Body Location TFL, Vastus lateralis, iliacus , distal glut at Greater Trochanter Mobilization Type Instrument Assisted,Myofascial Release,Strumming Intensity/Depth Moderate Body Position Hooklying Comments manual with decreased sensitivity and ed self application rolling pin/ball wall- performed end tx with good feedback results Joint Mobilizations R hip Joint trialed posterolateral infer Body Position w/ strap Comments just pressure on thigh,no hip decompression- DC Manual Traction Lumbar Details Traction w/belt at upper calf Body Position Hooklying Reps/Duration 4 min Comments sustained hold, small range pelvic tilt with good feedback less LB tension response. Self-Care/Home Management Treatment Education Patient Education Body Mechanics,Home Exercise Program,Joint Protection,Pain Management,Posture Other Education Time spent discussion use longer pillow between BLEs sidesleeping for hip/pelvis support. Next tx ask if helped , maybe add pillow between BUEs and a/p hip on Rsidesleeping if cushion jt. Added supine fig 4, sorin stretch; seated piriformis stretch and STS, reviewed sciatic nerve glide- provided HOs. PT-OP-R Modalities Start: 01/04/23 18:27 Freq: Status: Active Protocol: Document 01/14/23 08:54 LRN (Rec: 01/14/23 09:35 LRN [id number]) Electric Stimulation Electric Stimulation Pre-Modulated Body Location UT>Lower gluteal - bilateral Duration (Minutes) 15 Intensity 28 Patient Position Hooklying Combined With Heat/Cold Hot Pack Comments Bolster under legs. 2' set up PT-OP-T Assessment and Plan Start: 01/04/23 18:27 Freq: Status: Active Protocol: Document 01/17/23 08:58 SP (Rec: 01/17/23 09:50 SP [id number]) Physical Therapy Assessment Goals Three Impairment Decreased strength with decreased function Impairment JULIET 60, (40-59% impaired, score 40-59) Neck Disability 21 (40-59% impaired, score 20-29) UE QuickDASH 63.6 (60-795 impaired, score 60-79) Weakness LE's Short Term Goal (STG) Improve strength to improve function per JULIET score 20-39. STG Duration 02/21/23 Penitentiary Goal (LTG) Improve strength/endurance of LE's to be able to do activities (walking) without having to immediately sit afterwards. LTG Duration 04/07/23 Two Impairment Back/essence hip and groin/neck and arm pain Impairment Neck/arm pain rated 7/10. LBP essence groin pain rated 7/10. Short Term Goal (STG) Avoid having cortisone injections and relieve R neck/ arm pain. 01/14/23: Pain at R elbow only . STG Duration 02/21/23 progressing 01/14/23 Bracelet Former Goal (LTG) Decrease LBP to 2-3/10 and be able to lift leg to put socks and lessen the feeling of weight in the legs so she can stand 20-30 minutes. 01/14/23: 8 hrs pain relief after last session. LTG Duration 04/07/23 temporary progression 01/14/23 One Impairment Lacks self care HEP, pt has self care aquatic program. Short Term Goal (STG) Pt will be educated in proper Posture, transfers, and body mechanics to minimize LBP onset. 01/11/23: Educated pt in proper transfers and body mechanics. 01/17/23: time spent hip hinge mechanics STS with improved no UE support needed elevated table approx 20 STG Duration 02/21/23 progressed 01/17/23 (continue need posture training) Penitentiary Goal (LTG) Pt will be educated in a self care HEP to improve mobility and core/neck stability to decrease pain. 01/17/23: time spend pillow use sleeping. Added supine fig 4, sorin stretch; seated piriformis stretch and STS, reviewed sciatic nerve glide- provided HOs LTG Duration 04/07/23 Assessment Summary Assessment Pt responded well to manual therapy and ed/performance self application at home. Good response to stretching today, less R hip pain and more mobile end tx. Physical Therapy Plan Frequency and Duration Frequency of Treatment 2x/Week Plan of Care Start Date 01/07/23 Plan of Care End Date 04/07/23 Therapeutic Interventions Therapeutic Interventions Home Exercise Program,Joint Mobilizations,Manual Therapy, Neuromuscular Re-education, Patient/Caregiver Education, Self-Care/Home Management,Soft Tissue Mobilization,Taping, Therapeutic Activities, Therapeutic Exercises Modalities Cold Pack/Ice Massage,Electric Stimulation,Hot Packs, Traction- Mechanical, Ultrasound Next Visit Focus/Plan Next Note Type Treatment Note Next Visit Plan REcheck STS mechanics, review stretching w/ HOs provided. Check use longer pillow side sleep. POC: Continue educate pt in proper posture (sit/stand) and with daily activities. Focus on spine to decrease pain with walking. Assess Lumbar soft tissue palp; assess strength hip/trunk/?shoulder. POC: Lumbar herniated disc rehab, cervical soft tissue dysfunction rehab. Manual: lumbar traction, mob of T/S and. Ex: Core stab and Cervical posture stab & ROM, C. stretches (issue HEP), pec stretch. Neural: Stab & Sciatic ( gentle)/UE neural glides. Educ: Posture. Modalities: Education in pain managment, ?Ktape, continue MH/IFES.
--- NOTE | 2023-01-28 09:00 | PT.OTN ---
Current Diagnoses Pain in right shoulder (01/28/23) Cervicalgia (01/28/23) Low back pain, unspecified (01/28/23) Dorsalgia, unspecified (01/28/23) Pain in right arm (01/28/23) Physical Therapy Treatment Note PT-OP-A Visit Information Start: 01/04/23 18:27 Freq: Status: Active Protocol: Document 01/28/23 08:18 SP (Rec: 01/28/23 09:04 SP [id number]) Out-Patient Physical Therapy Visit Information Visit Information Visit Type Treatment Note Visit Start Time 08:18 Visit Stop Time 09:00 Total Visit Minutes 52 Visit Number 5 Number of CHANCERY CLERK Visits 2 Evaluation Information Evaluation Date 01/07/23 Precautions Precautions Multilevel DDD (L2-L3, L3-L4, L4-L5), depression, fibromyalgia PT-OP-B Current Condition Start: 01/04/23 18:27 Freq: Status: Active Protocol: Document 01/07/23 08:03 LRN (Rec: 01/07/23 08:52 LRN [id number]) Current Condition History of Current Condition Onset Date 1 yr ago. Current Complaints Essence LB, hip>thigh pain, groin pain, R neck/shoulder pain. History of Current Condition Pt reports the major problem is her spine. 5yr ago she was diagnosed with multiple pxs involving L2, L3, L4, L5 and was only able to tolerate water therapy for 2 yrs. She found it extremely helpful for 3 yrs. She was able to walk again. She now feels like her condition is back to what it was before having water therapy. Last year she tried to do what she did in the water previously and it was helpful but because of spousal illness and loss of her spouse, she was unable to continue her water exercise. Spouse last year. Pt reports her condition has progressively worsened and now she has pain in bilateral lower back, essence groin pelvic region, essence hips that radiates 1/2 way to knees (R>L ), and in the R neck/shoulder- brachium (pt is R handed). 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 Prior Treatments and Tests Five yrs ago did water therapy for 2 yrs. Two Chiropractor treatments. First time found helpful, not 2nd time (treatments 1.5 yrs ago and 3 months ago). 01/2021 MRI: Multilevel DDD ( L2-L3, L3-L4, L4-L5) with central canal narrowing L3-L4, L4-L5 and foraminal narrowing at L4-L5. Fissure noted in L5-S1 L foraminal annulus. Future Testing and Treatments Planned None Treatment Goals Patient/Caregiver Goals Pt goal is: - to avoid having cortisone injections in the spine; therefore wants to try PT to get better first, and to relieve R neck/arm pain. - Decrease LBP to 2-3/10 and be able to lift leg to put socks and lessen the feeling of weight in the legs so she can stand 20-30 minutes, -Be able to do activities without having to immediately sit afterwards. -No pain in R neck/shoulder/ arm. 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 Baseline Function- Recreation/Hobbies Quilter Current Functional Impairments (Reported) Functional Limitations- Mobility/Gait Can't stand do chores without having to immediately sit down . Sleeping is manageable. 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 PT-OP-C Subjective Start: 01/04/23 18:27 Freq: Status: Active Protocol: Document 01/28/23 08:18 SP (Rec: 01/28/23 09:04 SP [id number]) OP-PT Subjective Patient Comments Patient Comments Pt reports neck and back better, the pain is in L leg today not R, unusual for her states ususally stays on same side. The Sorin and FIg 4 stretched helped alot. She stated did pretty good walking camping and didn't need walker. PT-OP-H Neuro Start: 01/04/23 18:27 Freq: Status: Active Protocol: Document 01/14/23 08:54 LRN (Rec: 01/14/23 10:52 LRN [id number]) Deep Tendon Reflex & Clonus Assessment Deep Tendon Reflex Bilateral Tricep Deep Tendon Reflex 2+ Normal Bilateral Bicep Deep Tendon Reflex 2+ Normal PT-OP-J Posture/Palpation/Skin Start: 01/04/23 18:27 Freq: Status: Active Protocol: Document 01/11/23 15:03 LRN (Rec: 01/11/23 16:12 LRN [id number]) Palpation Assessment Location Thoracic region Palpation Location Thoracic T1-T6 Paraspinals and Spinous processes Palpation Findings Soft Tissue Tightness, Tenderness Palpation Details Spinous processess tender with PA glides. Shoulders Palpation Location Essence Deltoids Palpation Findings Tenderness Palpation Details General deltoids. Cervical region Palpation Location Subocciptal and paraspinals Palpation Findings Soft Tissue Tightness, Tenderness Palpation Details Tight L>R UT and paraspinals PT-OP-K Range of Motion Start: 01/04/23 18:27 Freq: Status: Active Protocol: Document 01/14/23 08:54 LRN (Rec: 01/14/23 09:35 LRN [id number]) Lumbar Spine Range of Motion Lumbar Spine Active Degrees Testing Position Standing Rotation Left 10 Rotation Right 0 Ankle and Foot Goniometric Range of Motion Ankle and Foot Right Active Testing Position Supine Dorsiflexion with Knee Extended 5 Plantarflexion 50 Left Active Testing Position Supine Dorsiflexion with Knee Extended 2 Plantarflexion 50 PT-OP-L Special Tests Start: 01/04/23 18:27 Freq: Status: Active Protocol: Document 01/11/23 15:03 LRN (Rec: 01/11/23 16:12 LRN [id number]) Special Tests Cervical Spine Special Tests Vertebral Artery Test Results - Right side, Lumbar Spine Special Tests Manual Traction Test Results + Comments Relief of pain PT-OP-M Strength Start: 01/04/23 18:27 Freq: Status: Active Protocol: Document 01/11/23 15:03 LRN (Rec: 01/11/23 16:12 LRN [id number]) Cervical Spine Strength Cervical Spine Manual Muscle Testing Testing Position Sitting Flexion (C1-2) 5 Normal Extension 5 Normal Rotation Left 3 Fair Rotation Right 3 Fair Lateral Flexion Left (C3) 5 Normal Lateral Flexion Right (C3) 5 Normal PT-OP-Q Treatments Start: 01/04/23 18:27 Freq: Status: Active Protocol: Document 01/28/23 08:18 SP (Rec: 01/28/23 09:04 SP [id number]) Therapeutic Exercises Supine Exercises Sorin Stretch Supine Exercise Name reviewed HEP Side left Reps/Minutes 60 Comments cued TA/PPT if needed, opp knee bent/ft table FIg 4 stretch Supine Exercise Name reviewed HEP Side right Resistance plantar ft facing L inner thigh Reps/Minutes 20 x 2 Comments good feedback stretch (pain ankle over opp knee) Sitting Exercises sit stand Sitting Exercise Name reviewed HEP Resistance arms across chest Reps/Minutes x10 Comments cued scoot fwd seat, hip hinge wt shift fwd straight back, slow desc- impr Sciatic active n glide Sitting Exercise Name Kick head off w/o head mvmt- Gave HO Side bilateral Reps/Minutes 2 min Comments cued form- no pain LE neural stretch Sitting Exercise Name Knee ext w/ankle DF- gave HO Side bilateral Reps/Minutes 3' Comments cued hip hinge time find max stretch- no pain Yvan C. strengthenign Sitting Exercise Name Yvan C Strengthening: flex/ext /lateral SB Side bilateral Reps/Minutes 5 x5 reps each direction C. AROM Sitting Exercise Name C AROM - FB, Ext, SB, Rot Side bilateral Reps/Minutes 3 SH x3 reps Comments good feedback stretch Standing Exercises self STMs Standing Exercise Name seated rolling pin: quad, ITB, calf Equipment Used ball wall: TFL, glut, Low back Reps/Minutes 2 min Comments good feedback less tension over front and lateral thigh will continue home Ankle DF stretch Standing Exercise Name Runner's stretch HEP reviewed Side bilateral Equipment Used lunge stance w/ hands on wall Reps/Minutes 30 x2 Comments good calf stretch Manual Therapy Treatment Soft Tissue Mobilization back Body Location lumbar 1-5 Mobilization Type Instrument Assisted,Myofascial Release Comments manual and cupping- good feedback response and more pliable soft tissure post. REviewed STMs ball wall back/ hips and rolling pin legs Manual Traction long leg axis distraction Details L hip (inferior pull) Body Position Supine Reps/Duration 2 min Comments good feedback distraction, less hip pain. PT-OP-R Modalities Start: 01/04/23 18:27 Freq: Status: Active Protocol: Document 01/14/23 08:54 LRN (Rec: 01/14/23 09:35 LRN [id number]) Electric Stimulation Electric Stimulation Pre-Modulated Body Location UT>Lower gluteal - bilateral Duration (Minutes) 15 Intensity 28 Patient Position Hooklying Combined With Heat/Cold Hot Pack Comments Bolster under legs. 2' set up PT-OP-T Assessment and Plan Start: 01/04/23 18:27 Freq: Status: Active Protocol: Document 01/28/23 08:18 SP (Rec: 01/28/23 09:04 SP [id number]) Physical Therapy Assessment Goals Three Impairment Decreased strength with decreased function Impairment JULIET 60, (40-59% impaired, score 40-59) Neck Disability 21 (40-59% impaired, score 20-29) UE QuickDASH 63.6 (60-795 impaired, score 60-79) Weakness LE's Short Term Goal (STG) Improve strength to improve function per JULIET score 20-39. STG Duration 02/21/23 Half-Way Goal (LTG) Improve strength/endurance of LE's to be able to do activities (walking) without having to immediately sit afterwards. 01/28/23: progressing: able to walk at [place] without use of 4WW but did take rest breaks on benches when needed. LTG Duration 04/07/23 progressing 01/28/23 Two Impairment Back/essence hip and groin/neck and arm pain Impairment Neck/arm pain rated 7/10. LBP essence groin pain rated 7/10. Short Term Goal (STG) Avoid having cortisone injections and relieve R neck/ arm pain. 01/14/23: Pain at R elbow only . \ 01/28/23: Progressing: no arm, neck, elbow pain today. STG Duration 02/21/23 progressing 01/28/23 Half-Way Goal (LTG) Decrease LBP to 2-3/10 and be able to lift leg to put socks and lessen the feeling of weight in the legs so she can stand 20-30 minutes. 01/14/23: 8 hrs pain relief after last session. 01/28/23: 5/10 when put sock standing in LB, painfree sitting. Less feeling legs like brick. Able to walk at [place] without walker but took breaks sitting on benches. LTG Duration 04/07/23 progressing 01/28/23 One Impairment Lacks self care HEP, pt has self care aquatic program. Short Term Goal (STG) Pt will be educated in proper Posture, transfers, and body mechanics to minimize LBP onset. 01/11/23: Educated pt in proper transfers and body mechanics. 01/17/23: time spent hip hinge mechanics STS with improved no UE support needed elevated table approx 20 01/28/23: GOAL MET: good hip hinge technique during sit standing and pivot to 18 chair without AD with her today. STG Duration 02/21/23 GOAL MET 01/28/23 Half-Way Goal (LTG) Pt will be educated in a self care HEP to improve mobility and core/neck stability to decrease pain. 01/17/23: time spend pillow use sleeping. Added supine fig 4, sorin stretch; seated piriformis stretch and STS, reviewed sciatic nerve glide- provided HOs LTG Duration 04/07/23 progressing 01/17/23 Assessment Summary Assessment Pt good feedback response to manual, less back tightness discomfort. Ed and review of self application using ball on wall and rolling pin during tx, I need to do this more, helps alot. Pt responds well to stretching and sciatic nerve glides during tx and at home reports. Pt making gains able to walk around camp this past week without use of 4WW for support as in past but did take seated rest breaks on benches. Physical Therapy Plan Frequency and Duration Frequency of Treatment 2x/Week Plan of Care Start Date 01/07/23 Plan of Care End Date 04/07/23 Therapeutic Interventions Therapeutic Interventions Home Exercise Program,Joint Mobilizations,Manual Therapy, Neuromuscular Re-education, Patient/Caregiver Education, Self-Care/Home Management,Soft Tissue Mobilization,Taping, Therapeutic Activities, Therapeutic Exercises Modalities Cold Pack/Ice Massage,Electric Stimulation,Hot Packs, Traction- Mechanical, Ultrasound Next Visit Focus/Plan Next Note Type Treatment Note Next Visit Plan Discussed waiting list for opening with PT until next appt 02/12. REcheck STS mechanics, review stretching w/ HOs provided. Check use longer pillow side sleep. POC: Continue educate pt in proper posture (sit/stand) and with daily activities. Focus on spine to decrease pain with walking. Assess Lumbar soft tissue palp; assess strength hip/trunk/?shoulder. POC: Lumbar herniated disc rehab, cervical soft tissue dysfunction rehab. Manual: lumbar traction, mob of T/S and. Ex: Core stab and Cervical posture stab & ROM, C. stretches (issue HEP), pec stretch. Neural: Stab & Sciatic ( gentle)/UE neural glides. Educ: Posture. Modalities: Education in pain managment, ?Ktape, continue MH/IFES.
--- NOTE | 2023-02-11 18:02 | PT.OTN ---
Current Diagnoses Pain in right shoulder (02/11/23) Cervicalgia (02/11/23) Low back pain, unspecified (02/11/23) Dorsalgia, unspecified (02/11/23) Pain in right arm (02/11/23) Physical Therapy Treatment Note PT-OP-A Visit Information Start: 01/04/23 18:27 Freq: Status: Active Protocol: Document 02/11/23 08:04 LRN (Rec: 02/11/23 08:49 LRN [id number]) Out-Patient Physical Therapy Visit Information Visit Information Visit Type Treatment Note Visit Start Time 08:04 Visit Stop Time 08:44 Total Visit Minutes 40 Visit Number 6 Evaluation Information Evaluation Date 01/07/23 Precautions Precautions Multilevel DDD (L2-L3, L3-L4, L4-L5), depression, fibromyalgia PT-OP-B Current Condition Start: 01/04/23 18:27 Freq: Status: Active Protocol: Document 01/07/23 08:03 LRN (Rec: 01/07/23 08:52 LRN [id number]) Current Condition History of Current Condition Onset Date 1 yr ago. Current Complaints Essence LB, hip>thigh pain, groin pain, R neck/shoulder pain. History of Current Condition Pt reports the major problem is her spine. 5yr ago she was diagnosed with multiple pxs involving L2, L3, L4, L5 and was only able to tolerate water therapy for 2 yrs. She found it extremely helpful for 3 yrs. She was able to walk again. She now feels like her condition is back to what it was before having water therapy. Last year she tried to do what she did in the water previously and it was helpful but because of spousal illness and loss of her spouse, she was unable to continue her water exercise. Spouse last year. Pt reports her condition has progressively worsened and now she has pain in bilateral lower back, essence groin pelvic region, essence hips that radiates 1/2 way to knees (R>L ), and in the R neck/shoulder- brachium (pt is R handed). 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 Prior Treatments and Tests Five yrs ago did water therapy for 2 yrs. Two Chiropractor treatments. First time found helpful, not 2nd time (treatments 1.5 yrs ago and 3 months ago). 01/2021 MRI: Multilevel DDD ( L2-L3, L3-L4, L4-L5) with central canal narrowing L3-L4, L4-L5 and foraminal narrowing at L4-L5. Fissure noted in L5-S1 L foraminal annulus. Future Testing and Treatments Planned None Treatment Goals Patient/Caregiver Goals Pt goal is: - to avoid having cortisone injections in the spine; therefore wants to try PT to get better first, and to relieve R neck/arm pain. - Decrease LBP to 2-3/10 and be able to lift leg to put socks and lessen the feeling of weight in the legs so she can stand 20-30 minutes, -Be able to do activities without having to immediately sit afterwards. -No pain in R neck/shoulder/ arm. 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 Baseline Function- Recreation/Hobbies Quilter Current Functional Impairments (Reported) Functional Limitations- Mobility/Gait Can't stand do chores without having to immediately sit down . Sleeping is manageable. 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 PT-OP-C Subjective Start: 01/04/23 18:27 Freq: Status: Active Protocol: Document 02/11/23 08:04 LRN (Rec: 02/11/23 08:49 LRN [id number]) OP-PT Subjective Patient Comments Patient Comments Has been hurting a lot, but probably because did more walking around the quilt show. No pain in neck, shoulders, and arm. Only pain is in R elbow with picking up coffee cup or anything. Sometimes sharp, sometimes arthritis ache. PT-OP-H Neuro Start: 01/04/23 18:27 Freq: Status: Active Protocol: Document 01/14/23 08:54 LRN (Rec: 01/14/23 10:52 LRN [id number]) Deep Tendon Reflex & Clonus Assessment Deep Tendon Reflex Bilateral Tricep Deep Tendon Reflex 2+ Normal Bilateral Bicep Deep Tendon Reflex 2+ Normal PT-OP-J Posture/Palpation/Skin Start: 01/04/23 18:27 Freq: Status: Active Protocol: Document 01/11/23 15:03 LRN (Rec: 01/11/23 16:12 LRN [id number]) Palpation Assessment Location Thoracic region Palpation Location Thoracic T1-T6 Paraspinals and Spinous processes Palpation Findings Soft Tissue Tightness, Tenderness Palpation Details Spinous processess tender with PA glides. Shoulders Palpation Location Essence Deltoids Palpation Findings Tenderness Palpation Details General deltoids. Cervical region Palpation Location Subocciptal and paraspinals Palpation Findings Soft Tissue Tightness, Tenderness Palpation Details Tight L>R UT and paraspinals PT-OP-K Range of Motion Start: 01/04/23 18:27 Freq: Status: Active Protocol: Document 01/14/23 08:54 LRN (Rec: 01/14/23 09:35 LRN [id number]) Lumbar Spine Range of Motion Lumbar Spine Active Degrees Testing Position Standing Rotation Left 10 Rotation Right 0 Ankle and Foot Goniometric Range of Motion Ankle and Foot Right Active Testing Position Supine Dorsiflexion with Knee Extended 5 Plantarflexion 50 Left Active Testing Position Supine Dorsiflexion with Knee Extended 2 Plantarflexion 50 PT-OP-L Special Tests Start: 01/04/23 18:27 Freq: Status: Active Protocol: Document 01/11/23 15:03 LRN (Rec: 01/11/23 16:12 LRN [id number]) Special Tests Cervical Spine Special Tests Vertebral Artery Test Results - Right side, Lumbar Spine Special Tests Manual Traction Test Results + Comments Relief of pain PT-OP-M Strength Start: 01/04/23 18:27 Freq: Status: Active Protocol: Document 01/11/23 15:03 LRN (Rec: 01/11/23 16:12 LRN [id number]) Cervical Spine Strength Cervical Spine Manual Muscle Testing Testing Position Sitting Flexion (C1-2) 5 Normal Extension 5 Normal Rotation Left 3 Fair Rotation Right 3 Fair Lateral Flexion Left (C3) 5 Normal Lateral Flexion Right (C3) 5 Normal PT-OP-Q Treatments Start: 01/04/23 18:27 Freq: Status: Active Protocol: Document 02/11/23 08:04 LRN (Rec: 02/11/23 08:49 LRN [id number]) Therapeutic Exercises Supine Exercises Sorin Stretch Supine Exercise Name KTC position stretch f/b 10x active stretch Side left Reps/Minutes 60 f/b active stretch Comments Extra time to determine max tolerated stretch position FIg 4 stretch Supine Exercise Name Fig 4 stretch with foot next to leg f/b 10x active stretch Side right Resistance plantar ft facing L inner thigh Reps/Minutes 60 f/b active stretch x 2 Comments good feedback stretch (pain ankle over opp knee) C. PROM stretch Supine Exercise Name Rotation Side bilateral Reps/Minutes 5' Sitting Exercises Self STM Sitting Exercise Name Seated self STM w/ball Side right Reps/Minutes 5 min Comments Cuing for neutral spine and Standing Exercises self STMs Standing Exercise Name Ball on wall rolling around the lateral hip Equipment Used ball wall: TFL, glut, Low back Reps/Minutes 5 min Comments req'd cuing and positioning for neutral spine, limited pressure Manual Therapy Treatment Soft Tissue Mobilization R Elbow Body Location Superior to Olecranon process. Mobilization Type Strumming Intensity/Depth Moderate Body Position Supine PT-OP-R Modalities Start: 01/04/23 18:27 Freq: Status: Active Protocol: Document 02/11/23 08:04 LRN (Rec: 02/11/23 08:51 LRN [id number]) Ultrasound Therapy Treatment R distal brachium Treatment Duration (minutes) 8 Patient Position Supine Coupling Medium Ultrasound Gel Applicator Size (cm2) 10 Mode Setting Pulsed Duty Cycle 50% Intensity Setting (w/cm2) 1.5 Comments Distal end of brachium posteriorly above olecranon process. PT-OP-T Assessment and Plan Start: 01/04/23 18:27 Freq: Status: Active Protocol: Document 02/11/23 08:04 LRN (Rec: 02/11/23 08:49 LRN [id number]) Physical Therapy Assessment Goals Three Impairment Decreased strength with decreased function Impairment JULIET 60, (40-59% impaired, score 40-59) Neck Disability 21 (40-59% impaired, score 20-29) UE QuickDASH 63.6 (60-795 impaired, score 60-79) Weakness LE's Short Term Goal (STG) Improve strength to improve function per JULIET score 20-39. STG Duration 02/21/23 Firearms Inspector Goal (LTG) Improve strength/endurance of LE's to be able to do activities (walking) without having to immediately sit afterwards. 01/28/23: progressing: able to walk at [place] without use of 4WW but did take rest breaks on benches when needed. LTG Duration 04/07/23 progressing 01/28/23 Two Impairment Back/essence hip and groin/neck and arm pain Impairment Neck/arm pain rated 7/10. LBP essence groin pain rated 7/10. Short Term Goal (STG) Avoid having cortisone injections and relieve R neck/ arm pain. 01/14/23: Pain at R elbow only . \ 01/28/23: Progressing: no arm, neck, elbow pain today. STG Duration 02/21/23 progressing 01/28/23 Mcc Goal (LTG) Decrease LBP to 2-3/10 and be able to lift leg to put socks and lessen the feeling of weight in the legs so she can stand 20-30 minutes. 01/14/23: 8 hrs pain relief after last session. 01/28/23: 5/10 when put sock standing in LB, painfree sitting. Less feeling legs like brick. Able to walk at [place] without walker but took breaks sitting on benches. LTG Duration 04/07/23 progressing 01/28/23 One Impairment Lacks self care HEP, pt has self care aquatic program. Short Term Goal (STG) Pt will be educated in proper Posture, transfers, and body mechanics to minimize LBP onset. 01/11/23: Educated pt in proper transfers and body mechanics. 01/17/23: time spent hip hinge mechanics STS with improved no UE support needed elevated table approx 20 01/28/23: GOAL MET: good hip hinge technique during sit standing and pivot to 18 chair without AD with her today. STG Duration 02/21/23 GOAL MET 01/28/23 Mcc Goal (LTG) Pt will be educated in a self care HEP to improve mobility and core/neck stability to decrease pain. 01/17/23: time spend pillow use sleeping. Added supine fig 4, sorin stretch; seated piriformis stretch and STS, reviewed sciatic nerve glide- provided HOs LTG Duration 04/07/23 progressing 01/17/23 Assessment Summary Assessment Pain resolved in neck/shoulder , conts at R elbow. + response to US with 0/10 R elbow pain after treatment. R Sciatic pain persists. Pt using longer pillow to side sleep appropriately. Physical Therapy Plan Frequency and Duration Frequency of Treatment 2x/Week Plan of Care Start Date 01/07/23 Plan of Care End Date 04/07/23 Next Visit Focus/Plan Next Note Type Treatment Note Next Visit Plan Pt on waiting list for opening with PT until next appt 02/12. Review stretching w/HOs provided. POC: Monitor pt in proper posture (sit/stand) and with daily activities. Focus on spine to decrease pain with walking. Assess Lumbar soft tissue palp; assess strength hip/trunk/?shoulder. POC: Lumbar herniated disc rehab, cervical soft tissue dysfunction rehab. Manual: lumbar traction, mob of T/S and. Ex: Core and Cervical stab & ROM, pec stretch. Neural: Stab & Sciatic ( gentle)/?UE neural glides. Educ: Posture. Modalities: Education in pain managment, ?Ktape, continue MH/IFES.
--- NOTE | 2023-02-14 09:07 | PT.OTN ---
Current Diagnoses Pain in right shoulder (02/14/23) Cervicalgia (02/14/23) Low back pain, unspecified (02/14/23) Dorsalgia, unspecified (02/14/23) Pain in right arm (02/14/23) Physical Therapy Treatment Note PT-OP-A Visit Information Start: 01/04/23 18:27 Freq: Status: Active Protocol: Document 02/14/23 08:03 LRN (Rec: 02/14/23 09:06 LRN [id number]) Out-Patient Physical Therapy Visit Information Visit Information Visit Type Treatment Note Visit Start Time 08:04 Visit Stop Time 08:47 Total Visit Minutes 43 Visit Number 7 Evaluation Information Evaluation Date 01/07/23 Precautions Precautions Multilevel DDD (L2-L3, L3-L4, L4-L5), depression, fibromyalgia PT-OP-B Current Condition Start: 01/04/23 18:27 Freq: Status: Active Protocol: Document 01/07/23 08:03 LRN (Rec: 01/07/23 08:52 LRN [id number]) Current Condition History of Current Condition Onset Date 1 yr ago. Current Complaints Essence LB, hip>thigh pain, groin pain, R neck/shoulder pain. History of Current Condition Pt reports the major problem is her spine. 5yr ago she was diagnosed with multiple pxs involving L2, L3, L4, L5 and was only able to tolerate water therapy for 2 yrs. She found it extremely helpful for 3 yrs. She was able to walk again. She now feels like her condition is back to what it was before having water therapy. Last year she tried to do what she did in the water previously and it was helpful but because of spousal illness and loss of her spouse, she was unable to continue her water exercise. Spouse last year. Pt reports her condition has progressively worsened and now she has pain in bilateral lower back, essence groin pelvic region, essence hips that radiates 1/[address] to knees (R>L ), and in the R neck/shoulder- brachium (pt is R handed). 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 Prior Treatments and Tests Five yrs ago did water therapy for 2 yrs. Two Chiropractor treatments. First time found helpful, not 2nd time (treatments 1.5 yrs ago and 3 months ago). 01/2021 MRI: Multilevel DDD ( L2-L3, L3-L4, L4-L5) with central canal narrowing L3-L4, L4-L5 and foraminal narrowing at L4-L5. Fissure noted in L5-S1 L foraminal annulus. Future Testing and Treatments Planned None Treatment Goals Patient/Caregiver Goals Pt goal is: - to avoid having cortisone injections in the spine; therefore wants to try PT to get better first, and to relieve R neck/arm pain. - Decrease LBP to 2-3/10 and be able to lift leg to put socks and lessen the feeling of weight in the legs so she can stand 20-30 minutes, -Be able to do activities without having to immediately sit afterwards. -No pain in R neck/shoulder/ arm. 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 Baseline Function- Recreation/Hobbies Quilter Current Functional Impairments (Reported) Functional Limitations- Mobility/Gait Can't stand do chores without having to immediately sit down . Sleeping is manageable. 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 PT-OP-C Subjective Start: 01/04/23 18:27 Freq: Status: Active Protocol: Document 02/14/23 08:03 LRN (Rec: 02/14/23 09:06 LRN [id number]) OP-PT Subjective Patient Comments Patient Comments States her R elbow pain is just starting to come back on, still no neck/shoulder pain. Has R LE pain always, 12/29. PT-OP-H Neuro Start: 01/04/23 18:27 Freq: Status: Active Protocol: Document 01/14/23 08:54 LRN (Rec: 01/14/23 10:52 LRN [id number]) Deep Tendon Reflex & Clonus Assessment Deep Tendon Reflex Bilateral Tricep Deep Tendon Reflex 2+ Normal Bilateral Bicep Deep Tendon Reflex 2+ Normal PT-OP-J Posture/Palpation/Skin Start: 01/04/23 18:27 Freq: Status: Active Protocol: Document 01/11/23 15:03 LRN (Rec: 01/11/23 16:12 LRN [id number]) Palpation Assessment Location Thoracic region Palpation Location Thoracic T1-T6 Paraspinals and Spinous processes Palpation Findings Soft Tissue Tightness, Tenderness Palpation Details Spinous processess tender with PA glides. Shoulders Palpation Location Essence Deltoids Palpation Findings Tenderness Palpation Details General deltoids. Cervical region Palpation Location Subocciptal and paraspinals Palpation Findings Soft Tissue Tightness, Tenderness Palpation Details Tight L>R UT and paraspinals PT-OP-K Range of Motion Start: 01/04/23 18:27 Freq: Status: Active Protocol: Document 01/14/23 08:54 LRN (Rec: 01/14/23 09:35 LRN [id number]) Lumbar Spine Range of Motion Lumbar Spine Active Degrees Testing Position Standing Rotation Left 10 Rotation Right 0 Ankle and Foot Goniometric Range of Motion Ankle and Foot Right Active Testing Position Supine Dorsiflexion with Knee Extended 5 Plantarflexion 50 Left Active Testing Position Supine Dorsiflexion with Knee Extended 2 Plantarflexion 50 PT-OP-L Special Tests Start: 01/04/23 18:27 Freq: Status: Active Protocol: Document 01/11/23 15:03 LRN (Rec: 01/11/23 16:12 LRN [id number]) Special Tests Cervical Spine Special Tests Vertebral Artery Test Results - Right side, Lumbar Spine Special Tests Manual Traction Test Results + Comments Relief of pain PT-OP-M Strength Start: 01/04/23 18:27 Freq: Status: Active Protocol: Document 01/11/23 15:03 LRN (Rec: 01/11/23 16:12 LRN [id number]) Cervical Spine Strength Cervical Spine Manual Muscle Testing Testing Position Sitting Flexion (C1-2) 5 Normal Extension 5 Normal Rotation Left 3 Fair Rotation Right 3 Fair Lateral Flexion Left (C3) 5 Normal Lateral Flexion Right (C3) 5 Normal PT-OP-Q Treatments Start: 01/04/23 18:27 Freq: Status: Active Protocol: Document 02/14/23 08:03 LRN (Rec: 02/14/23 09:06 LRN [id number]) Therapeutic Exercises Supine Exercises Deep cervical Neck flexor Supine Exercise Name Awareness training & Isometric hold - I/S to do HEP Reps/Minutes 2' TA tightening Supine Exercise Name Awareness training and tightening - I/S to do HEP Side bilateral Reps/Minutes 8' Comments Cue to breathe thru chest, no breathhold, NS hold Sorin Stretch Supine Exercise Name KTC position stretch w/ L leg kept on table, f/b 10x active stretch Side left Reps/Minutes 6' Comments Created LBP with stretch; more time taken to decr pain w/ stretch FIg 4 stretch Supine Exercise Name Fig 4 stretch with foot next to leg f/b 10x active stretch Side right Resistance plantar ft facing L inner thigh Reps/Minutes 6' Comments good feedback stretch (pain ankle over opp knee) Sidelying Exercises TA Tightening Sidelying Exercise Name Awareness and strength training - I/S to do HEP Side left Reps/Minutes 6' Comments Extra time taken to determine best position & ex tolerance. L pn-R sidelie Manual Therapy Treatment Soft Tissue Mobilization Abdomen Body Location L Abdomen for mob superiorly, laterally Mobilization Type Strumming Intensity/Depth Moderate Body Position Sidelying Comments 2' to assess tolerance. Pt had sharp pain c/o on L side. Held further treatment due to time constraint. Manual Traction Cervical Details Manual axial C/S traction Body Position Supine Reps/Duration 2' Comments Relief of R elbow pain. Self-Care/Home Management Treatment Education Patient Education Home Exercise Program Activities Self-Care/Home Management Activities Pt I/S in TA tightening in sup & L sidelie (hold R sidelie due to sharp pain on L lower abdomen w/contraction), and Deep C. Neck flexor ex (Neck elongation). PT-OP-R Modalities Start: 01/04/23 18:27 Freq: Status: Active Protocol: Document 02/14/23 08:03 LRN (Rec: 02/14/23 09:06 LRN [id number]) Ultrasound Therapy Treatment R distal brachium Treatment Duration (minutes) 8 Patient Position Sidelying Coupling Medium Ultrasound Gel Applicator Size (cm2) 10 Mode Setting Pulsed Duty Cycle 50% Intensity Setting (w/cm2) 1.0 Comments Mid to Distal end of brachium posteriorly above olecranon process. 2' set up and locating area of US needed. PT-OP-T Assessment and Plan Start: 01/04/23 18:27 Freq: Status: Active Protocol: Document 02/14/23 08:03 LRN (Rec: 02/14/23 09:06 LRN [id number]) Physical Therapy Assessment Goals Three Impairment Decreased strength with decreased function Impairment JULIET 60, (40-59% impaired, score 40-59) Neck Disability 21 (40-59% impaired, score 20-29) UE QuickDASH 63.6 (60-795 impaired, score 60-79) Weakness LE's Short Term Goal (STG) Improve strength to improve function per JULIET score 20-39. STG Duration 02/21/23 Nursing Home Goal (LTG) Improve strength/endurance of LE's to be able to do activities (walking) without having to immediately sit afterwards. 01/28/23: progressing: able to walk at [place] without use of 4WW but did take rest breaks on benches when needed. LTG Duration 04/07/23 progressing 01/28/23 Two Impairment Back/essence hip and groin/neck and arm pain Impairment Neck/arm pain rated 7/10. LBP essence groin pain rated 7/10. Short Term Goal (STG) Avoid having cortisone injections and relieve R neck/ arm pain. 01/14/23: Pain at R elbow only . \ 01/28/23: Progressing: no arm, neck, elbow pain today. 02/14/23: R elbow pain 6/10. STG Duration 02/21/23 progressing 01/28/23 Marketing Administrator Goal (LTG) Decrease LBP to 2-3/10 and be able to lift leg to put socks and lessen the feeling of weight in the legs so she can stand 20-30 minutes. 01/14/23: 8 hrs pain relief after last session. 01/28/23: 5/10 when put sock standing in LB, painfree sitting. Less feeling legs like brick. Able to walk at [place] without walker but took breaks sitting on benches. LTG Duration 04/07/23 progressing 01/28/23 One Impairment Lacks self care HEP, pt has self care aquatic program. Short Term Goal (STG) Pt will be educated in proper Posture, transfers, and body mechanics to minimize LBP onset. 01/11/23: Educated pt in proper transfers and body mechanics. 01/17/23: time spent hip hinge mechanics STS with improved no UE support needed elevated table approx 20 01/28/23: GOAL MET: good hip hinge technique during sit standing and pivot to 18 chair without AD with her today. STG Duration 02/21/23 GOAL MET 01/28/23 Nursing Home Goal (LTG) Pt will be educated in a self care HEP to improve mobility and core/neck stability to decrease pain. 01/17/23: time spend pillow use sleeping. Added supine fig 4, sorin stretch; seated piriformis stretch and STS, reviewed sciatic nerve glide- provided HOs LTG Duration 04/07/23 progressing 01/17/23 Assessment Summary Assessment Pt has multilevel DDD (L2-L3, L3-L4, L4-L5) and UE/LE neural tension, +C.tx response, + PSLR, postural dysfunction. Had to modify L Iliopsoas stretch due to back pain onset to keeping L leg on table in Sorin Test position. Normal LE leg length assessed in supine. No significant change in R elbow pain after US, but pt had decreased in pain with manual C/S traction. Elbow pain today appears due to C/S involvement; sometimes noted due to soft tissue dys of tricep tendon at elbow. Physical Therapy Plan Frequency and Duration Frequency of Treatment 2x/Week Plan of Care Start Date 01/07/23 Plan of Care End Date 04/07/23 Next Visit Focus/Plan Next Note Type Treatment Note Next Visit Plan Assess C/S & soft tissue @ elbow for R elbow pain, & Lumbar soft tissue palp; assess strength hip/trunk/? shoulder. Monitor pt in proper posture ( sit/stand) and with daily activities. Focus on spine to decrease pain with walking. POC: Lumbar herniated disc rehab, cervical soft tissue/ neural dysfunction rehab. Manual: lumbar & Cervical traction, mob of T/S. Ex: Core and Cervical stab & ROM, pec stretch. Neural: Stab & Sciatic ( gentle), ?UE neural. Educ: Posture. Modalities: Education in pain managment, ?[place], MH/IFES.
--- NOTE | 2023-02-18 09:05 | PT.OTN ---
Current Diagnoses Pain in right shoulder (02/18/23) Cervicalgia (02/18/23) Low back pain, unspecified (02/18/23) Dorsalgia, unspecified (02/18/23) Pain in right arm (02/18/23) Physical Therapy Treatment Note PT-OP-A Visit Information Start: 01/04/23 18:27 Freq: Status: Active Protocol: Document 02/18/23 08:17 SP (Rec: 02/18/23 09:51 SP [id number]) Out-Patient Physical Therapy Visit Information Visit Information Visit Type Treatment Note Visit Start Time 08:17 Visit Stop Time 09:05 Total Visit Minutes 47 Visit Number 8 Number of ORNAMENT SETTER Visits 1 Evaluation Information Evaluation Date 01/07/23 Precautions Precautions Multilevel DDD (L2-L3, L3-L4, L4-L5), depression, fibromyalgia PT-OP-B Current Condition Start: 01/04/23 18:27 Freq: Status: Active Protocol: Document 01/07/23 08:03 LRN (Rec: 01/07/23 08:52 LRN [id number]) Current Condition History of Current Condition Onset Date 1 yr ago. Current Complaints Essence LB, hip>thigh pain, groin pain, R neck/shoulder pain. History of Current Condition Pt reports the major problem is her spine. 5yr ago she was diagnosed with multiple pxs involving L2, L3, L4, L5 and was only able to tolerate water therapy for 2 yrs. She found it extremely helpful for 3 yrs. She was able to walk again. She now feels like her condition is back to what it was before having water therapy. Last year she tried to do what she did in the water previously and it was helpful but because of spousal illness and loss of her spouse, she was unable to continue her water exercise. Spouse last year. Pt reports her condition has progressively worsened and now she has pain in bilateral lower back, essence groin pelvic region, essence hips that radiates 1/[address] to knees (R>L ), and in the R neck/shoulder- brachium (pt is R handed). 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 Prior Treatments and Tests Five yrs ago did water therapy for 2 yrs. Two Chiropractor treatments. First time found helpful, not 2nd time (treatments 1.5 yrs ago and 3 months ago). 01/2021 MRI: Multilevel DDD ( L2-L3, L3-L4, L4-L5) with central canal narrowing L3-L4, L4-L5 and foraminal narrowing at L4-L5. Fissure noted in L5-S1 L foraminal annulus. Future Testing and Treatments Planned None Treatment Goals Patient/Caregiver Goals Pt goal is: - to avoid having cortisone injections in the spine; therefore wants to try PT to get better first, and to relieve R neck/arm pain. - Decrease LBP to 2-3/10 and be able to lift leg to put socks and lessen the feeling of weight in the legs so she can stand 20-30 minutes, -Be able to do activities without having to immediately sit afterwards. -No pain in R neck/shoulder/ arm. 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 Baseline Function- Recreation/Hobbies Quilter Current Functional Impairments (Reported) Functional Limitations- Mobility/Gait Can't stand do chores without having to immediately sit down . Sleeping is manageable. 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 PT-OP-C Subjective Start: 01/04/23 18:27 Freq: Status: Active Protocol: Document 02/18/23 08:17 SP (Rec: 02/18/23 09:51 SP [id number]) OP-PT Subjective Patient Comments Patient Comments Pt arrives no R elbow pain today but states does still have pain R anterior/posterior upper forearm especially when lifts items or reaching driving. She stated the ultrasound to R elbow only lasted maybe 8 hrs and honestly doesn't feel worth continuing. She still continues to have R posterolateral hip pain and still doesn't tolerate laying and sleeping on R side very long. PT-OP-H Neuro Start: 01/04/23 18:27 Freq: Status: Active Protocol: Document 01/14/23 08:54 LRN (Rec: 01/14/23 10:52 LRN [id number]) Deep Tendon Reflex & Clonus Assessment Deep Tendon Reflex Bilateral Tricep Deep Tendon Reflex 2+ Normal Bilateral Bicep Deep Tendon Reflex 2+ Normal PT-OP-J Posture/Palpation/Skin Start: 01/04/23 18:27 Freq: Status: Active Protocol: Document 01/11/23 15:03 LRN (Rec: 01/11/23 16:12 LRN [id number]) Palpation Assessment Location Thoracic region Palpation Location Thoracic T1-T6 Paraspinals and Spinous processes Palpation Findings Soft Tissue Tightness, Tenderness Palpation Details Spinous processess tender with PA glides. Shoulders Palpation Location Essence Deltoids Palpation Findings Tenderness Palpation Details General deltoids. Cervical region Palpation Location Subocciptal and paraspinals Palpation Findings Soft Tissue Tightness, Tenderness Palpation Details Tight L>R UT and paraspinals PT-OP-K Range of Motion Start: 01/04/23 18:27 Freq: Status: Active Protocol: Document 01/14/23 08:54 LRN (Rec: 01/14/23 09:35 LRN [id number]) Lumbar Spine Range of Motion Lumbar Spine Active Degrees Testing Position Standing Rotation Left 10 Rotation Right 0 Ankle and Foot Goniometric Range of Motion Ankle and Foot Right Active Testing Position Supine Dorsiflexion with Knee Extended 5 Plantarflexion 50 Left Active Testing Position Supine Dorsiflexion with Knee Extended 2 Plantarflexion 50 PT-OP-L Special Tests Start: 01/04/23 18:27 Freq: Status: Active Protocol: Document 01/11/23 15:03 LRN (Rec: 01/11/23 16:12 LRN [id number]) Special Tests Cervical Spine Special Tests Vertebral Artery Test Results - Right side, Lumbar Spine Special Tests Manual Traction Test Results + Comments Relief of pain PT-OP-M Strength Start: 01/04/23 18:27 Freq: Status: Active Protocol: Document 01/11/23 15:03 LRN (Rec: 01/11/23 16:12 LRN [id number]) Cervical Spine Strength Cervical Spine Manual Muscle Testing Testing Position Sitting Flexion (C1-2) 5 Normal Extension 5 Normal Rotation Left 3 Fair Rotation Right 3 Fair Lateral Flexion Left (C3) 5 Normal Lateral Flexion Right (C3) 5 Normal PT-OP-Q Treatments Start: 01/04/23 18:27 Freq: Status: Active Protocol: Document 02/18/23 08:17 SP (Rec: 02/18/23 09:51 SP [id number]) Therapeutic Exercises Supine Exercises Deep cervical Neck flexor Supine Exercise Name DNF training & Isometric hold then added lift Reps/Minutes DNF isometric hold (chin tuck) lift from table 2 sec x10 Comments good front neck muscle work and stretch back neck, painfree Sidelying Exercises TA Tightening Sidelying Exercise Name review TA draw in training - I /S to do HEP Side left Reps/Minutes 10 SH or 5 breaths x10 reps Comments Extra time taken to determine best position & ex tolerance. L pn-R sidelie Sitting Exercises sit stand Sitting Exercise Name reviewed HEP Resistance arms across chest Reps/Minutes x10 Comments cued slow desc, improved mechanics and back alignment Standing Exercises Wall Posture Standing Exercise Name added to HEP Resistance back to wall: head, shlds, pelvis Equipment Used towel behind neck Comments cued TA draw in LS toward wall , chin tuck/CS ext meet towel, Shld ERpalmfwd Manual Therapy Treatment Soft Tissue Mobilization R Elbow Body Location Superior to Olecranon process, CET/CFT. Mobilization Type Strumming Intensity/Depth Moderate Body Position Supine Comments Doesn't feel like anything just good brief massage. R hip Body Location TFL, Vastus lateralis, distal glut and piriformis at Greater Trochanter Mobilization Type Myofascial Release,Strumming, Sustained Pressure,Other Intensity/Depth Moderate Body Position Sidelying Comments manual and MWM hip ER/ clamshell Subocciptal Body Location Suboccipital, SCM, Scalenes, pec minor Mobilization Type Myofascial Release,Strumming, Sustained Pressure Intensity/Depth Superficial Body Position Hooklying Comments manual, tight scalenes improved mobility with neck. Joint Mobilizations R hip Direction lateral and posterolateral inferior glide Grade II Body Position w/ strap Comments MWM with hip ER better response than IR, light decompression R hip Manual Traction Cervical Details Manual axial C/S traction Body Position Supine Reps/Duration 2' Self-Care/Home Management Treatment Education Patient Education Body Mechanics,Home Exercise Program,Joint Protection,Pain Management,Posture Other Education Extra time spent use pillows need under head, between BLEs, under upper ribcage and anterior/posterior R hip in R sidelying with good feedback response. She reports not R hip painfree but helped suspend R hip to allow lay for little while. Will trial at home. Added wall posture and supine DNF (chin tuck) isometric with lift (unweight head from table). Provided suggestion massage therapist Gardenia Subramanian at [facility] in [place] for continued self care massage support decrease tension. PT-OP-R Modalities Start: 01/04/23 18:27 Freq: Status: Active Protocol: Document 02/14/23 08:03 LRN (Rec: 02/14/23 09:06 LRN [id number]) Ultrasound Therapy Treatment R distal brachium Treatment Duration (minutes) 8 Patient Position Sidelying Coupling Medium Ultrasound Gel Applicator Size (cm2) 10 Mode Setting Pulsed Duty Cycle 50% Intensity Setting (w/cm2) 1.0 Comments Mid to Distal end of brachium posteriorly above olecranon process. 2' set up and locating area of US needed. PT-OP-T Assessment and Plan Start: 01/04/23 18:27 Freq: Status: Active Protocol: Document 02/18/23 08:17 SP (Rec: 02/18/23 09:51 SP [id number]) Physical Therapy Assessment Goals Three Impairment Decreased strength with decreased function Impairment JULIET 60, (40-59% impaired, score 40-59) Neck Disability 21 (40-59% impaired, score 20-29) UE QuickDASH 63.6 (60-795 impaired, score 60-79) Weakness LE's Short Term Goal (STG) Improve strength to improve function per JULIET score 20-39. STG Duration 02/21/23 Valet Cashier Goal (LTG) Improve strength/endurance of LE's to be able to do activities (walking) without having to immediately sit afterwards. 01/28/23: progressing: able to walk at camp without use of 4WW but did take rest breaks on benches when needed. LTG Duration 04/07/23 progressing 01/28/23 Two Impairment Back/essence hip and groin/neck and arm pain Impairment Neck/arm pain rated 7/10. LBP essence groin pain rated 7/10. Short Term Goal (STG) Avoid having cortisone injections and relieve R neck/ arm pain. 01/14/23: Pain at R elbow only . \ 01/28/23: Progressing: no arm, neck, elbow pain today. 02/14/23: R elbow pain 12/29. 02/18/23: no R elbow pain arrival today. Initiated DNF isometric and lift. STG Duration 02/21/23 progressing 02/18/23 Intermediate Goal (LTG) Decrease LBP to 2-3/10 and be able to lift leg to put socks and lessen the feeling of weight in the legs so she can stand 20-30 minutes. 01/14/23: 8 hrs pain relief after last session. 01/28/23: 5/10 when put sock standing in LB, painfree sitting. Less feeling legs like brick. Able to walk at camp without walker but took breaks sitting on benches. LTG Duration 04/07/23 progressing 01/28/23 One Impairment Lacks self care HEP, pt has self care aquatic program. Short Term Goal (STG) Pt will be educated in proper Posture, transfers, and body mechanics to minimize LBP onset. 01/11/23: Educated pt in proper transfers and body mechanics. 01/17/23: time spent hip hinge mechanics STS with improved no UE support needed elevated table approx 20 01/28/23: GOAL MET: good hip hinge technique during sit standing and pivot to 18 chair without AD with her today. STG Duration 02/21/23 GOAL MET 01/28/23 Valet Cashier Goal (LTG) Pt will be educated in a self care HEP to improve mobility and core/neck stability to decrease pain. 01/17/23: time spend pillow use sleeping. Added supine fig 4, dawit stretch; seated piriformis stretch and STS, reviewed sciatic nerve glide- provided HOs 02/18/23: added DNF isometric w/ lift and wall posture, carryover back aligment during STS today. LTG Duration 04/07/23 progressing 02/18/23 Assessment Summary Assessment Pt reports good feedback deep neck flexion exercise with lift and applying to wall posture today, she was able to apply during STS. Reviewed use ball on wall for R hip massage similar to MWM manual with ORNAMENT SETTER to get to deeper massage she has been trying to accomplish. Good feedback response less R hip pain use of pillows anterior/posterior R hip sidelying will apply at home. Physical Therapy Plan Frequency and Duration Frequency of Treatment 2x/Week Plan of Care Start Date 01/07/23 Plan of Care End Date 04/07/23 Therapeutic Interventions Therapeutic Interventions Home Exercise Program,Joint Mobilizations,Manual Therapy, Neuromuscular Re-education, Patient/Caregiver Education, Self-Care/Home Management,Soft Tissue Mobilization,Taping, Therapeutic Activities, Therapeutic Exercises Modalities Cold Pack/Ice Massage,Electric Stimulation,Hot Packs, Traction- Mechanical, Ultrasound Next Visit Focus/Plan Next Note Type Progress Note Next Visit Plan 9th visit next. Check response to use pillows hips sidelying, DNF lift and wall posture added. POC: Assess C/S & soft tissue @ elbow for R elbow pain, & Lumbar soft tissue palp; assess strength hip/trunk/? shoulder. Monitor pt in proper posture ( sit/stand) and with daily activities. Focus on spine to decrease pain with walking. POC: Lumbar herniated disc rehab, cervical soft tissue/ neural dysfunction rehab. Manual: lumbar & Cervical traction, mob of T/S. Ex: Core and Cervical stab & ROM, pec stretch. Neural: Stab & Sciatic ( gentle), ?UE neural. Educ: Posture. Modalities: Education in pain managment, ?Ktape, MH/IFES.
--- NOTE | 2023-02-21 16:47 | PT.OTN ---
Current Diagnoses Pain in right shoulder (02/21/23) Cervicalgia (02/21/23) Low back pain, unspecified (02/21/23) Dorsalgia, unspecified (02/21/23) Pain in right arm (02/21/23) Physical Therapy Treatment Note PT-OP-A Visit Information Start: 01/04/23 18:27 Freq: Status: Active Protocol: Document 02/21/23 08:02 LRN (Rec: 02/21/23 08:53 LRN [id number]) Out-Patient Physical Therapy Visit Information Visit Information Visit Type Progress Note Visit Start Time 08:02 Visit Stop Time 08:48 Total Visit Minutes 46 Visit Number 9 Evaluation Information Evaluation Date 01/07/23 Precautions Precautions Multilevel DDD (L2-L3, L3-L4, L4-L5), depression, fibromyalgia PT-OP-B Current Condition Start: 01/04/23 18:27 Freq: Status: Active Protocol: Document 01/07/23 08:03 LRN (Rec: 01/07/23 08:52 LRN [id number]) Current Condition History of Current Condition Onset Date 1 yr ago. Current Complaints Cullen LB, hip>thigh pain, groin pain, R neck/shoulder pain. History of Current Condition Pt reports the major problem is her spine. 5yr ago she was diagnosed with multiple pxs involving L2, L3, L4, L5 and was only able to tolerate water therapy for 2 yrs. She found it extremely helpful for 3 yrs. She was able to walk again. She now feels like her condition is back to what it was before having water therapy. Last year she tried to do what she did in the water previously and it was helpful but because of spousal illness and loss of her spouse, she was unable to continue her water exercise. Spouse last year. Pt reports her condition has progressively worsened and now she has pain in bilateral lower back, cullen groin pelvic region, cullen hips that radiates 1/[address] to knees (R>L ), and in the R neck/shoulder- brachium (pt is R handed). 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 Prior Treatments and Tests Five yrs ago did water therapy for 2 yrs. Two Chiropractor treatments. First time found helpful, not 2nd time (treatments 1.5 yrs ago and 3 months ago). 01/2021 MRI: Multilevel DDD ( L2-L3, L3-L4, L4-L5) with central canal narrowing L3-L4, L4-L5 and foraminal narrowing at L4-L5. Fissure noted in L5-S1 L foraminal annulus. Future Testing and Treatments Planned None Treatment Goals Patient/Caregiver Goals Pt goal is: - to avoid having cortisone injections in the spine; therefore wants to try PT to get better first, and to relieve R neck/arm pain. - Decrease LBP to 2-3/10 and be able to lift leg to put socks and lessen the feeling of weight in the legs so she can stand 20-30 minutes, -Be able to do activities without having to immediately sit afterwards. -No pain in R neck/shoulder/ arm. 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 Baseline Function- Recreation/Hobbies Quilter Current Functional Impairments (Reported) Functional Limitations- Mobility/Gait Can't stand do chores without having to immediately sit down . Sleeping is manageable. 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 PT-OP-C Subjective Start: 01/04/23 18:27 Freq: Status: Active Protocol: Document 02/21/23 08:02 LRN (Rec: 02/21/23 08:53 LRN [id number]) OP-PT Subjective Patient Comments Patient Comments No change with R elbow pain, has a little upper brachium pain. Was able to sleep on R side for a little bit. Patient Questionnaires Oswestry Low Back Index Oswestry Score 48 Oswestry Impairment 40 to 59% Impaired (Score 40- 59) Quick Dash- Upper Extremity Quick Dash UE Score 63.6 Quick Dash UE Impairment 40 to 59% Impaired (Score 40- 59) PT-OP-H Neuro Start: 01/04/23 18:27 Freq: Status: Active Protocol: Document 01/14/23 08:54 LRN (Rec: 01/14/23 10:52 LRN [id number]) Deep Tendon Reflex & Clonus Assessment Deep Tendon Reflex Bilateral Tricep Deep Tendon Reflex 2+ Normal Bilateral Bicep Deep Tendon Reflex 2+ Normal PT-OP-J Posture/Palpation/Skin Start: 01/04/23 18:27 Freq: Status: Active Protocol: Document 01/11/23 15:03 LRN (Rec: 01/11/23 16:12 LRN [id number]) Palpation Assessment Location Thoracic region Palpation Location Thoracic T1-T6 Paraspinals and Spinous processes Palpation Findings Soft Tissue Tightness, Tenderness Palpation Details Spinous processess tender with PA glides. Shoulders Palpation Location Cullen Deltoids Palpation Findings Tenderness Palpation Details General deltoids. Cervical region Palpation Location Subocciptal and paraspinals Palpation Findings Soft Tissue Tightness, Tenderness Palpation Details Tight L>R UT and paraspinals PT-OP-K Range of Motion Start: 01/04/23 18:27 Freq: Status: Active Protocol: Document 01/14/23 08:54 LRN (Rec: 01/14/23 09:35 LRN [id number]) Lumbar Spine Range of Motion Lumbar Spine Active Degrees Testing Position Standing Rotation Left 10 Rotation Right 0 Ankle and Foot Goniometric Range of Motion Ankle and Foot Right Active Testing Position Supine Dorsiflexion with Knee Extended 5 Plantarflexion 50 Left Active Testing Position Supine Dorsiflexion with Knee Extended 2 Plantarflexion 50 PT-OP-L Special Tests Start: 01/04/23 18:27 Freq: Status: Active Protocol: Document 01/11/23 15:03 LRN (Rec: 01/11/23 16:12 LRN [id number]) Special Tests Cervical Spine Special Tests Vertebral Artery Test Results - Right side, Lumbar Spine Special Tests Manual Traction Test Results + Comments Relief of pain PT-OP-M Strength Start: 01/04/23 18:27 Freq: Status: Active Protocol: Document 01/11/23 15:03 LRN (Rec: 01/11/23 16:12 LRN [id number]) Cervical Spine Strength Cervical Spine Manual Muscle Testing Testing Position Sitting Flexion (C1-2) 5 Normal Extension 5 Normal Rotation Left 3 Fair Rotation Right 3 Fair Lateral Flexion Left (C3) 5 Normal Lateral Flexion Right (C3) 5 Normal PT-OP-Q Treatments Start: 01/04/23 18:27 Freq: Status: Active Protocol: Document 02/21/23 08:02 LRN (Rec: 02/21/23 08:53 LRN [id number]) Therapeutic Exercises Supine Exercises Deep cervical Neck flexor Supine Exercise Name DNF training & Isometric hold then added lift Reps/Minutes DNF isometric hold (chin tuck) lift from table 2 sec x20 Comments good front neck muscle work and stretch back neck, painfree TA tightening Supine Exercise Name Awareness training and tightening - I/S to do HEP Side bilateral Reps/Minutes 8' Comments Cue to breathe thru chest, no breathhold, NS hold Sidelying Exercises TA Tightening Sidelying Exercise Name Clamshell w/TA Side left Reps/Minutes 4 sets of 5 reps. Comments Extra time taken to determine best position & ex tolerance. L pn-R sidelie Manual Therapy Treatment Manual Traction Cervical Details Manual C/S traction 30 deg's flexed Body Position Supine Reps/Duration 7' Manual Techniques Assisted neck ext Type Assisted neck ext Body Location C/S Body Position Supine Reps/Duration 3' PT-OP-R Modalities Start: 01/04/23 18:27 Freq: Status: Active Protocol: Document 02/21/23 08:02 LRN (Rec: 02/21/23 08:53 LRN [id number]) Ultrasound Therapy Treatment R distal brachium Treatment Duration (minutes) 8 Patient Position Sidelying Coupling Medium Ultrasound Gel Applicator Size (cm2) 10 Mode Setting Pulsed Duty Cycle 50% Intensity Setting (w/cm2) 1.0 Comments Mid to Distal end of brachium posteriorly above olecranon process. 2' set up and locating area of US needed. PT-OP-T Assessment and Plan Start: 01/04/23 18:27 Freq: Status: Active Protocol: Document 02/21/23 08:02 LRN (Rec: 02/21/23 08:53 LRN [id number]) Physical Therapy Assessment Goals Three Impairment Decreased strength with decreased function Impairment JULIET 60, (40-59% impaired, score 40-59) Neck Disability 21 (40-59% impaired, score 20-29) UE QuickDASH 63.6 (60-795 impaired, score 60-79) Weakness LE's Short Term Goal (STG) Improve strength to improve function per JULIET score 20-39. 02/21/23: JULIET score is 48/50 ( 40-59% impaired, score 40-59). STG Duration 03/14/23 Met goal for improvement 02/21/23 Jail Goal (LTG) Improve strength/endurance of LE's to be able to do activities (walking) without having to immediately sit afterwards. 01/28/23: progressing: able to walk at [place] without use of 4WW but did take rest breaks on benches when needed. LTG Duration 04/07/23 progressing 01/28/23 Two Impairment Back/cullen hip and groin/neck and arm pain Impairment Neck/arm pain rated 7/10. LBP cullen groin pain rated 7/10. Short Term Goal (STG) Avoid having cortisone injections and relieve R neck/ arm pain. 01/14/23: Pain at R elbow 01/28/23: Progressing: no arm, neck, elbow pain today. 02/14/23: R elbow pain 6/10. 02/18/23: no R elbow pain arrival today. Initiated DNF isometric and lift. 02/21/23: R diffuse elbow pain rated 3-6/10. STG Duration 03/14/23 progressing Insole [place]asper Goal (LTG) Decrease LBP to 2-3/10 and be able to lift leg to put socks and lessen the feeling of weight in the legs so she can stand 20-30 minutes. 01/14/23: 8 hrs pain relief after last session. 01/28/23: 5/10 when put sock standing in LB, painfree sitting. Less feeling legs like brick. Able to walk at [place] without walker but took breaks sitting on benches. 02/21/23: R hip pain putting socks on is 7/10. LTG Duration 04/07/23 progressing 01/28/23 One Impairment Lacks self care HEP, pt has self care aquatic program. Short Term Goal (STG) Pt will be educated in proper Posture, transfers, and body mechanics to minimize LBP onset. 01/11/23: Educated pt in proper transfers and body mechanics. 01/17/23: time spent hip hinge mechanics STS with improved no UE support needed elevated table approx 20 01/28/23: GOAL MET: good hip hinge technique during sit standing and pivot to 18 chair without AD with her today. STG Duration 02/21/23 GOAL MET 01/28/23 Insole [place]asper Goal (LTG) Pt will be educated in a self care HEP to improve mobility and core/neck stability to decrease pain. 01/17/23: time spend pillow use sleeping. Added supine fig 4, dawit stretch; seated piriformis stretch and STS, reviewed sciatic nerve glide- provided HOs 02/18/23: added DNF isometric w/ lift and wall posture, carryover back aligment during STS today. LTG Duration 04/07/23 progressing 02/18/23 Assessment Summary Assessment Pt has made improved with reduction of neck/shoulder pain and is now only experiencing R elbow that may be soft tissue related ( possible triceps tendonitis) and R hip pain. Today she attends with reports of being able to sleep on the R side for part of the night for the first time. With R hip exercise (clamshell) she reports no pain. R sidelie today is painful on the R hip. Use of pillows to support legs in sidelye appears helpful with pt able to sleep on R side for first time since start of PT. Decreased diffuse pain in R elbow after US rated 1/10. Onset of anterior forearm discomfort with C/S traction. As expected with her multilevel DDD (L2-L3, L3-L4, L4-L5) and UE/LE neural tension, +C.tx response, +PSLR, postural dysfunction her progress is slow. The pt will benefit from continued skilled physical therapy for further decrease in her R hip pain and improvement in her posture and R elbow pain. Physical Therapy Plan Frequency and Duration Frequency of Treatment 2x/Week Plan of Care Start Date 01/07/23 Plan of Care End Date 04/07/23 Next Visit Focus/Plan Next Note Type Progress Note Next Visit Plan Check response to use pillows hips sidelying, DNF lift and wall posture added. Monitor C/S & soft tissue @ elbow for tendonitis vs radiculopathy, & Lumbar soft tissue palp; assess strength hip/trunk/?shoulder. Improve thoracic mobility. Cont training for proper posture (sit/stand) and with daily activities. Focus on spine to decrease pain with walking. POC: Lumbar herniated disc rehab, cervical soft tissue/ neural dysfunction rehab. Manual: lumbar & Cervical traction, mob of T/S. Ex: Core and Cervical stab & ROM, pec stretch. Neural: Stab & Sciatic ( gentle), ?UE neural. Educ: Posture. Modalities: Education in pain managment, ?[place], MH/IFES.
--- NOTE | 2023-02-21 16:48 | PT.OTN ---
Current Diagnoses Pain in right shoulder (02/21/23) Cervicalgia (02/21/23) Low back pain, unspecified (02/21/23) Dorsalgia, unspecified (02/21/23) Pain in right arm (02/21/23) Physical Therapy Treatment Note PT-OP-A Visit Information Start: 01/04/23 18:27 Freq: Status: Active Protocol: Document 02/21/23 08:02 LRN (Rec: 02/21/23 08:53 LRN [id number]) Out-Patient Physical Therapy Visit Information Visit Information Visit Type Progress Note Visit Start Time 08:02 Visit Stop Time 08:48 Total Visit Minutes 46 Visit Number 9 Evaluation Information Evaluation Date 01/07/23 Precautions Precautions Multilevel DDD (L2-L3, L3-L4, L4-L5), depression, fibromyalgia PT-OP-B Current Condition Start: 01/04/23 18:27 Freq: Status: Active Protocol: Document 01/07/23 08:03 LRN (Rec: 01/07/23 08:52 LRN [id number]) Current Condition History of Current Condition Onset Date 1 yr ago. Current Complaints Cullen LB, hip>thigh pain, groin pain, R neck/shoulder pain. History of Current Condition Pt reports the major problem is her spine. 5yr ago she was diagnosed with multiple pxs involving L2, L3, L4, L5 and was only able to tolerate water therapy for 2 yrs. She found it extremely helpful for 3 yrs. She was able to walk again. She now feels like her condition is back to what it was before having water therapy. Last year she tried to do what she did in the water previously and it was helpful but because of spousal illness and loss of her spouse, she was unable to continue her water exercise. Spouse last year. Pt reports her condition has progressively worsened and now she has pain in bilateral lower back, cullen groin pelvic region, cullen hips that radiates 1/[address] to knees (R>L ), and in the R neck/shoulder- brachium (pt is R handed). 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 Prior Treatments and Tests Five yrs ago did water therapy for 2 yrs. Two Chiropractor treatments. First time found helpful, not 2nd time (treatments 1.5 yrs ago and 3 months ago). 01/2021 MRI: Multilevel DDD ( L2-L3, L3-L4, L4-L5) with central canal narrowing L3-L4, L4-L5 and foraminal narrowing at L4-L5. Fissure noted in L5-S1 L foraminal annulus. Future Testing and Treatments Planned None Treatment Goals Patient/Caregiver Goals Pt goal is: - to avoid having cortisone injections in the spine; therefore wants to try PT to get better first, and to relieve R neck/arm pain. - Decrease LBP to 2-3/10 and be able to lift leg to put socks and lessen the feeling of weight in the legs so she can stand 20-30 minutes, -Be able to do activities without having to immediately sit afterwards. -No pain in R neck/shoulder/ arm. 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 Baseline Function- Recreation/Hobbies Quilter Current Functional Impairments (Reported) Functional Limitations- Mobility/Gait Can't stand do chores without having to immediately sit down . Sleeping is manageable. 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 PT-OP-C Subjective Start: 01/04/23 18:27 Freq: Status: Active Protocol: Document 02/21/23 08:02 LRN (Rec: 02/21/23 08:53 LRN [id number]) OP-PT Subjective Patient Comments Patient Comments No change with R elbow pain, has a little upper brachium pain. Was able to sleep on R side for a little bit. Patient Questionnaires Oswestry Low Back Index Oswestry Score 48 Oswestry Impairment 40 to 59% Impaired (Score 40- 59) Quick Dash- Upper Extremity Quick Dash UE Score 63.6 Quick Dash UE Impairment 40 to 59% Impaired (Score 40- 59) PT-OP-H Neuro Start: 01/04/23 18:27 Freq: Status: Active Protocol: Document 01/14/23 08:54 LRN (Rec: 01/14/23 10:52 LRN [id number]) Deep Tendon Reflex & Clonus Assessment Deep Tendon Reflex Bilateral Tricep Deep Tendon Reflex 2+ Normal Bilateral Bicep Deep Tendon Reflex 2+ Normal PT-OP-J Posture/Palpation/Skin Start: 01/04/23 18:27 Freq: Status: Active Protocol: Document 01/11/23 15:03 LRN (Rec: 01/11/23 16:12 LRN [id number]) Palpation Assessment Location Thoracic region Palpation Location Thoracic T1-T6 Paraspinals and Spinous processes Palpation Findings Soft Tissue Tightness, Tenderness Palpation Details Spinous processess tender with PA glides. Shoulders Palpation Location Cullen Deltoids Palpation Findings Tenderness Palpation Details General deltoids. Cervical region Palpation Location Subocciptal and paraspinals Palpation Findings Soft Tissue Tightness, Tenderness Palpation Details Tight L>R UT and paraspinals PT-OP-K Range of Motion Start: 01/04/23 18:27 Freq: Status: Active Protocol: Document 01/14/23 08:54 LRN (Rec: 01/14/23 09:35 LRN [id number]) Lumbar Spine Range of Motion Lumbar Spine Active Degrees Testing Position Standing Rotation Left 10 Rotation Right 0 Ankle and Foot Goniometric Range of Motion Ankle and Foot Right Active Testing Position Supine Dorsiflexion with Knee Extended 5 Plantarflexion 50 Left Active Testing Position Supine Dorsiflexion with Knee Extended 2 Plantarflexion 50 PT-OP-L Special Tests Start: 01/04/23 18:27 Freq: Status: Active Protocol: Document 01/11/23 15:03 LRN (Rec: 01/11/23 16:12 LRN [id number]) Special Tests Cervical Spine Special Tests Vertebral Artery Test Results - Right side, Lumbar Spine Special Tests Manual Traction Test Results + Comments Relief of pain PT-OP-M Strength Start: 01/04/23 18:27 Freq: Status: Active Protocol: Document 01/11/23 15:03 LRN (Rec: 01/11/23 16:12 LRN [id number]) Cervical Spine Strength Cervical Spine Manual Muscle Testing Testing Position Sitting Flexion (C1-2) 5 Normal Extension 5 Normal Rotation Left 3 Fair Rotation Right 3 Fair Lateral Flexion Left (C3) 5 Normal Lateral Flexion Right (C3) 5 Normal PT-OP-Q Treatments Start: 01/04/23 18:27 Freq: Status: Active Protocol: Document 02/21/23 08:02 LRN (Rec: 02/21/23 08:53 LRN [id number]) Therapeutic Exercises Supine Exercises Deep cervical Neck flexor Supine Exercise Name DNF training & Isometric hold then added lift Reps/Minutes DNF isometric hold (chin tuck) lift from table 2 sec x20 Comments good front neck muscle work and stretch back neck, painfree TA tightening Supine Exercise Name Awareness training and tightening - I/S to do HEP Side bilateral Reps/Minutes 8' Comments Cue to breathe thru chest, no breathhold, NS hold Sidelying Exercises TA Tightening Sidelying Exercise Name Clamshell w/TA Side left Reps/Minutes 4 sets of 5 reps. Comments Extra time taken to determine best position & ex tolerance. L pn-R sidelie Manual Therapy Treatment Manual Traction Cervical Details Manual C/S traction 30 deg's flexed Body Position Supine Reps/Duration 7' Manual Techniques Assisted neck ext Type Assisted neck ext Body Location C/S Body Position Supine Reps/Duration 3' PT-OP-R Modalities Start: 01/04/23 18:27 Freq: Status: Active Protocol: Document 02/21/23 08:02 LRN (Rec: 02/21/23 08:53 LRN [id number]) Ultrasound Therapy Treatment R distal brachium Treatment Duration (minutes) 8 Patient Position Sidelying Coupling Medium Ultrasound Gel Applicator Size (cm2) 10 Mode Setting Pulsed Duty Cycle 50% Intensity Setting (w/cm2) 1.0 Comments Mid to Distal end of brachium posteriorly above olecranon process. 2' set up and locating area of US needed. PT-OP-T Assessment and Plan Start: 01/04/23 18:27 Freq: Status: Active Protocol: Document 02/21/23 08:02 LRN (Rec: 02/21/23 08:53 LRN [id number]) Physical Therapy Assessment Goals Three Impairment Decreased strength with decreased function Impairment JULIET 60, (40-59% impaired, score 40-59) Neck Disability 21 (40-59% impaired, score 20-29) UE QuickDASH 63.6 (60-795 impaired, score 60-79) Weakness LE's Short Term Goal (STG) Improve strength to improve function per JULIET score 20-39. 02/21/23: JULIET score is 48/50 ( 40-59% impaired, score 40-59). STG Duration 03/14/23 Met goal for improvement 02/21/23 Shelter Goal (LTG) Improve strength/endurance of LE's to be able to do activities (walking) without having to immediately sit afterwards. 01/28/23: progressing: able to walk at [place] without use of 4WW but did take rest breaks on benches when needed. LTG Duration 04/07/23 progressing 01/28/23 Two Impairment Back/cullen hip and groin/neck and arm pain Impairment Neck/arm pain rated 7/10. LBP cullen groin pain rated 7/10. Short Term Goal (STG) Avoid having cortisone injections and relieve R neck/ arm pain. 01/14/23: Pain at R elbow 01/28/23: Progressing: no arm, neck, elbow pain today. 02/14/23: R elbow pain 6/10. 02/18/23: no R elbow pain arrival today. Initiated DNF isometric and lift. 02/21/23: R diffuse elbow pain rated 3-6/10. STG Duration 03/14/23 progressing Aircraft Worker Goal (LTG) Decrease LBP to 2-3/10 and be able to lift leg to put socks and lessen the feeling of weight in the legs so she can stand 20-30 minutes. 01/14/23: 8 hrs pain relief after last session. 01/28/23: 5/10 when put sock standing in LB, painfree sitting. Less feeling legs like brick. Able to walk at [place] without walker but took breaks sitting on benches. 02/21/23: R hip pain putting socks on is 7/10. LTG Duration 04/07/23 progressing 01/28/23 One Impairment Lacks self care HEP, pt has self care aquatic program. Short Term Goal (STG) Pt will be educated in proper Posture, transfers, and body mechanics to minimize LBP onset. 01/11/23: Educated pt in proper transfers and body mechanics. 01/17/23: time spent hip hinge mechanics STS with improved no UE support needed elevated table approx 20 01/28/23: GOAL MET: good hip hinge technique during sit standing and pivot to 18 chair without AD with her today. STG Duration 02/21/23 GOAL MET 01/28/23 Aircraft Worker Goal (LTG) Pt will be educated in a self care HEP to improve mobility and core/neck stability to decrease pain. 01/17/23: time spend pillow use sleeping. Added supine fig 4, dawit stretch; seated piriformis stretch and STS, reviewed sciatic nerve glide- provided HOs 02/18/23: added DNF isometric w/ lift and wall posture, carryover back aligment during STS today. LTG Duration 04/07/23 progressing 02/18/23 Assessment Summary Assessment Pt has made improved with reduction of neck/shoulder pain and is now only experiencing R elbow that may be soft tissue related ( possible triceps tendonitis) and R hip pain. Today she attends with reports of being able to sleep on the R side for part of the night for the first time. With R hip exercise (clamshell) she reports no pain. R sidelie today is painful on the R hip. Use of pillows to support legs in sidelye appears helpful with pt able to sleep on R side for first time since start of PT. Decreased diffuse pain in R elbow after US rated 1/10. Onset of anterior forearm discomfort with C/S traction. As expected with her multilevel DDD (L2-L3, L3-L4, L4-L5) and UE/LE neural tension, +C.tx response, +PSLR, postural dysfunction her progress is slow. The pt will benefit from continued skilled physical therapy for further decrease in her R hip pain and improvement in her posture and R elbow pain. Physical Therapy Plan Frequency and Duration Frequency of Treatment 2x/Week Plan of Care Start Date 01/07/23 Plan of Care End Date 04/07/23 Next Visit Focus/Plan Next Note Type Treatment Note Next Visit Plan Check response to use pillows hips sidelying, DNF lift and wall posture added. Monitor C/S & soft tissue @ elbow for tendonitis vs radiculopathy, & Lumbar soft tissue palp; assess strength hip/trunk/?shoulder. Improve thoracic mobility. Cont training for proper posture (sit/stand) and with daily activities. Focus on spine to decrease pain with walking. POC: Lumbar herniated disc rehab, cervical soft tissue/ neural dysfunction rehab. Manual: lumbar & Cervical traction, mob of T/S. Ex: Core and Cervical stab & ROM, pec stretch. Neural: Stab & Sciatic ( gentle), ?UE neural. Educ: Posture. Modalities: Education in pain managment, ?Ktape, MH/IFES.
--- NOTE | 2023-02-21 16:48 | PT.OPPOC ---
Physical, Occupational & Speech Therapy At [facility] Current Diagnoses Pain in right shoulder (02/21/23) Cervicalgia (02/21/23) Low back pain, unspecified (02/21/23) Dorsalgia, unspecified (02/21/23) Pain in right arm (02/21/23) Visit Care Team Role Provider Type Pinky Villafana DO Attending Provider Physician Family Provider Primary Care Provider Referring Provider Specialty: Medical Address: [address] [place] [address], [address], [address] Email: [email or web address] Plan Of Care PT-OP-T Assessment and Plan Start: 01/04/23 18:27 Freq: Status: Active Protocol: Document 02/21/23 08:02 LRN (Rec: 02/21/23 08:53 LRN [id number]) Physical Therapy Assessment Goals Three Impairment Decreased strength with decreased function Impairment JULIET 60, (40-59% impaired, score 40-59) Neck Disability 21 (40-59% impaired, score 20-29) UE QuickDASH 63.6 (60-795 impaired, score 60-79) Weakness LE's Short Term Goal (STG) Improve strength to improve function per JULIET score 20-39. 02/21/23: JULIET score is 48/50 ( 40-59% impaired, score 40-59). STG Duration 03/14/23 Met goal for improvement 02/21/23 Director Electrical Engineering Goal (LTG) Improve strength/endurance of LE's to be able to do activities (walking) without having to immediately sit afterwards. 01/28/23: progressing: able to walk [place] without use of 4WW but did take rest breaks on benches when needed. LTG Duration 04/07/23 progressing 01/28/23 Two Impairment Back/essence hip and groin/neck and arm pain Impairment Neck/arm pain rated 7/10. LBP essence groin pain rated 7/10. Short Term Goal (STG) Avoid having cortisone injections and relieve R neck/ arm pain. 01/14/23: Pain at R elbow 01/28/23: Progressing: no arm, neck, elbow pain today. 02/14/23: R elbow pain 6/10. 02/18/23: no R elbow pain arrival today. Initiated DNF isometric and lift. 02/21/23: R diffuse elbow pain rated 3-6/10. STG Duration 03/14/23 progressing Long-Term Goal (LTG) Decrease LBP to 2-3/10 and be able to lift leg to put socks and lessen the feeling of weight in the legs so she can stand 20-30 minutes. 01/14/23: 8 hrs pain relief after last session. 01/28/23: 5/10 when put sock standing in LB, painfree sitting. Less feeling legs like brick. [place] walk[place] but took breaks sitting on benches. 02/21/23: R hip pain putting socks on is 7/10. LTG Duration 04/07/23 progressing 01/28/23 One Impairment Lacks self care HEP, pt has self care aquatic program. Short Term Goal (STG) Pt will be educated in proper Posture, transfers, and body mechanics to minimize LBP onset. 01/11/23: Educated pt in proper transfers and body mechanics. 01/17/23: time spent hip hinge mechanics STS with improved no UE support needed elevated table approx 20 01/28/23: GOAL MET: good hip hinge technique during sit standing and pivot to 18 chair without AD with her today. STG Duration 02/21/23 GOAL MET 01/28/23 Long-Term Goal (LTG) Pt will be educated in a self care HEP to improve mobility and core/neck stability to decrease pain. 01/17/23: time spend pillow use sleeping. Added supine fig 4, dawit stretch; seated piriformis stretch and STS, reviewed sciatic nerve glide- provided HOs 02/18/23: added DNF isometric w/ lift and wall posture, carryover back aligment during STS today. LTG Duration 04/07/23 progressing 02/18/23 Assessment Summary Assessment Pt has made improved with reduction of neck/shoulder pain and is now only experiencing R elbow that may be soft tissue related ( possible triceps tendonitis) and R hip pain. Today she attends with reports of being able to sleep on the R side for part of the night for the first time. With R hip exercise (clamshell) she reports no pain. R sidelie today is painful on the R hip. Use of pillows to support legs in sidelye appears helpful with pt able to sleep on R side for first time since start of PT. Decreased diffuse pain in R elbow after US rated 1/10. Onset of anterior forearm discomfort with C/S traction. As expected with her multilevel DDD (L2-L3, L3-L4, L4-L5) and UE/LE neural tension, +C.tx response, +PSLR, postural dysfunction her progress is slow. The pt will benefit from continued skilled physical therapy for further decrease in her R hip pain and improvement in her posture and R elbow pain. Physical Therapy Plan Frequency and Duration Frequency of Treatment 2x/Week Plan of Care Start Date 01/07/23 Plan of Care End Date 04/07/23 Next Visit Focus/Plan Next Note Type Treatment Note Next Visit Plan Check response to use pillows hips sidelying, DNF lift and wall posture added. Monitor C/S & soft tissue @ elbow for tendonitis vs radiculopathy, & Lumbar soft tissue palp; assess strength hip/trunk/?shoulder. Improve thoracic mobility. Cont training for proper posture (sit/stand) and with daily activities. Focus on spine to decrease pain with walking. POC: Lumbar herniated disc rehab, cervical soft tissue/ neural dysfunction rehab. Manual: lumbar & Cervical traction, mob of T/S. Ex: Core and Cervical stab & ROM, pec stretch. Neural: Stab & Sciatic ( gentle), ?UE neural. Educ: Posture. Modalities: Education in pain managment, ?Ktape, MH/IFES. Plan of Care Dates Plan of Care Start Date 01/07/23 Plan of Care End Date 04/07/23 Electronically Signed by: Lucrecia Brink, PT 02/21/23 3619 If you are in agreement with this Plan of Care, please return a signed and dated copy. I have reviewed this Plan of Care and certify that the skilled therapy services above are required to meet the patient?s needs. Physician Signature Date Printed Name and Credentials Clinical Instructor Signature Printed Name and Credentials
--- NOTE | 2023-02-25 09:03 | PT.OTN ---
Current Diagnoses Pain in right shoulder (02/25/23) Cervicalgia (02/25/23) Low back pain, unspecified (02/25/23) Dorsalgia, unspecified (02/25/23) Pain in right arm (02/25/23) Physical Therapy Treatment Note PT-OP-A Visit Information Start: 01/04/23 18:27 Freq: Status: Active Protocol: Document 02/25/23 08:18 SP (Rec: 02/25/23 09:26 SP [id number]) Out-Patient Physical Therapy Visit Information Visit Information Visit Type Treatment Note Visit Note 08/31 after PN Visit Start Time 08:18 Visit Stop Time 09:03 Total Visit Minutes 45 Visit Number 10 Number of TECHNICAL APPLICATIONS SCIENTIST Visits 1 Evaluation Information Evaluation Date 01/07/23 Precautions Precautions Multilevel DDD (L2-L3, L3-L4, L4-L5), depression, fibromyalgia PT-OP-B Current Condition Start: 01/04/23 18:27 Freq: Status: Active Protocol: Document 01/07/23 08:03 LRN (Rec: 01/07/23 08:52 LRN [id number]) Current Condition History of Current Condition Onset Date 1 yr ago. Current Complaints Essence LB, hip>thigh pain, groin pain, R neck/shoulder pain. History of Current Condition Pt reports the major problem is her spine. 5yr ago she was diagnosed with multiple pxs involving L2, L3, L4, L5 and was only able to tolerate water therapy for 2 yrs. She found it extremely helpful for 3 yrs. She was able to walk again. She now feels like her condition is back to what it was before having water therapy. Last year she tried to do what she did in the water previously and it was helpful but because of spousal illness and loss of her spouse, she was unable to continue her water exercise. Spouse last year. Pt reports her condition has progressively worsened and now she has pain in bilateral lower back, essence groin pelvic region, essence hips that radiates 1/[address] to knees (R>L ), and in the R neck/shoulder- brachium (pt is R handed). 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 Prior Treatments and Tests Five yrs ago did water therapy for 2 yrs. Two Chiropractor treatments. First time found helpful, not 2nd time (treatments 1.5 yrs ago and 3 months ago). 01/2021 MRI: Multilevel DDD ( L2-L3, L3-L4, L4-L5) with central canal narrowing L3-L4, L4-L5 and foraminal narrowing at L4-L5. Fissure noted in L5-S1 L foraminal annulus. Future Testing and Treatments Planned None Treatment Goals Patient/Caregiver Goals Pt goal is: - to avoid having cortisone injections in the spine; therefore wants to try PT to get better first, and to relieve R neck/arm pain. - Decrease LBP to 2-3/10 and be able to lift leg to put socks and lessen the feeling of weight in the legs so she can stand 20-30 minutes, -Be able to do activities without having to immediately sit afterwards. -No pain in R neck/shoulder/ arm. 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 Baseline Function- Recreation/Hobbies Quilter Current Functional Impairments (Reported) Functional Limitations- Mobility/Gait Can't stand do chores without having to immediately sit down . Sleeping is manageable. 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 PT-OP-C Subjective Start: 01/04/23 18:27 Freq: Status: Active Protocol: Document 02/25/23 08:18 SP (Rec: 02/25/23 09:26 SP [id number]) OP-PT Subjective Patient Comments Patient Comments Pt reports pain in R arm still about 3/10, thinks US helped a little. Pt pain in hips 1/10 , I can't believe pain is so much better, been an long time. PT-OP-H Neuro Start: 01/04/23 18:27 Freq: Status: Active Protocol: Document 01/14/23 08:54 LRN (Rec: 01/14/23 10:52 LRN [id number]) Deep Tendon Reflex & Clonus Assessment Deep Tendon Reflex Bilateral Tricep Deep Tendon Reflex 2+ Normal Bilateral Bicep Deep Tendon Reflex 2+ Normal PT-OP-J Posture/Palpation/Skin Start: 01/04/23 18:27 Freq: Status: Active Protocol: Document 01/11/23 15:03 LRN (Rec: 01/11/23 16:12 LRN [id number]) Palpation Assessment Location Thoracic region Palpation Location Thoracic T1-T6 Paraspinals and Spinous processes Palpation Findings Soft Tissue Tightness, Tenderness Palpation Details Spinous processess tender with PA glides. Shoulders Palpation Location Essence Deltoids Palpation Findings Tenderness Palpation Details General deltoids. Cervical region Palpation Location Subocciptal and paraspinals Palpation Findings Soft Tissue Tightness, Tenderness Palpation Details Tight L>R UT and paraspinals PT-OP-K Range of Motion Start: 01/04/23 18:27 Freq: Status: Active Protocol: Document 01/14/23 08:54 LRN (Rec: 01/14/23 09:35 LRN [id number]) Lumbar Spine Range of Motion Lumbar Spine Active Degrees Testing Position Standing Rotation Left 10 Rotation Right 0 Ankle and Foot Goniometric Range of Motion Ankle and Foot Right Active Testing Position Supine Dorsiflexion with Knee Extended 5 Plantarflexion 50 Left Active Testing Position Supine Dorsiflexion with Knee Extended 2 Plantarflexion 50 PT-OP-L Special Tests Start: 01/04/23 18:27 Freq: Status: Active Protocol: Document 01/11/23 15:03 LRN (Rec: 01/11/23 16:12 LRN [id number]) Special Tests Cervical Spine Special Tests Vertebral Artery Test Results - Right side, Lumbar Spine Special Tests Manual Traction Test Results + Comments Relief of pain PT-OP-M Strength Start: 01/04/23 18:27 Freq: Status: Active Protocol: Document 01/11/23 15:03 LRN (Rec: 01/11/23 16:12 LRN [id number]) Cervical Spine Strength Cervical Spine Manual Muscle Testing Testing Position Sitting Flexion (C1-2) 5 Normal Extension 5 Normal Rotation Left 3 Fair Rotation Right 3 Fair Lateral Flexion Left (C3) 5 Normal Lateral Flexion Right (C3) 5 Normal PT-OP-Q Treatments Start: 01/04/23 18:27 Freq: Status: Active Protocol: Document 02/25/23 08:18 SP (Rec: 02/25/23 09:26 SP [id number]) Therapeutic Exercises Supine Exercises Deep cervical Neck flexor Supine Exercise Name DNF training & Isometric hold then added lift Reps/Minutes DNF isometric hold (chin tuck) lift from table 2 sec x20 Comments good front neck muscle work and stretch back neck, painfree TA tightening Supine Exercise Name Awareness training and tightening - I/S to do HEP Side bilateral Reps/Minutes 10 SH x10 Comments cued abdominal draw in hold, hands on abdomen for self feedback Sidelying Exercises TA Tightening Sidelying Exercise Name Clamshell w/TA- added to HEP ( declined HO) Side left Equipment Used pillow between BLEs Reps/Minutes 4 sets of 5 reps. Comments Improved painfree post manual & knee/hip flexion 90/90, dec HS recruitment Sitting Exercises sit stand Sitting Exercise Name reviewed HEP Resistance arms across chest Reps/Minutes x10 Comments cued slow desc, improved mechanics and back alignment Manual Therapy Treatment Soft Tissue Mobilization R Elbow Body Location Superior to Olecranon process, CET/CFT, distal tricep Mobilization Type Strumming Intensity/Depth Moderate Body Position Supine Comments manual, MWM elbow flex/ext AAROM Joint Mobilizations R humeroulnar jt Direction lateral, inferior glide w/ strap Grade II Body Position Supine Comments good gentle distraction R elbow, no pain. R hip Direction lateral and posterolateral inferior glide Grade II Body Position w/ strap Comments MWM with hip IR, light decompression R hip destraction response feels fine to do. Manual Traction Cervical Details Manual C/S traction 30 deg's flexed Body Position Supine Reps/Duration 7' Manual Techniques Assisted neck ext Type Assisted neck ext Body Location C/S Body Position Supine Reps/Duration 3' PT-OP-R Modalities Start: 01/04/23 18:27 Freq: Status: Active Protocol: Document 02/25/23 08:18 SP (Rec: 02/25/23 09:26 SP [id number]) Ultrasound Therapy Treatment R distal brachium Treatment Duration (minutes) 8 Patient Position Sidelying Coupling Medium Ultrasound Gel Applicator Size (cm2) 10 Mode Setting Pulsed Duty Cycle 50% Intensity Setting (w/cm2) 1.0 Comments Mid to Distal end of brachium posteriorly above olecranon process. 2' set up and locating area of US needed. PT-OP-T Assessment and Plan Start: 01/04/23 18:27 Freq: Status: Active Protocol: Document 02/25/23 08:18 SP (Rec: 02/25/23 09:26 SP [id number]) Physical Therapy Assessment Goals Three Impairment Decreased strength with decreased function Impairment JULIET 60, (40-59% impaired, score 40-59) Neck Disability 21 (40-59% impaired, score 20-29) UE QuickDASH 63.6 (60-795 impaired, score 60-79) Weakness LE's Short Term Goal (STG) Improve strength to improve function per JULIET score 20-39. 02/21/23: JULIET score is 48/50 ( 40-59% impaired, score 40-59). STG Duration 03/14/23 Met goal for improvement 02/21/23 Senior Care Goal (LTG) Improve strength/endurance of MARSHA's to be able to do activities (walking) without having to immediately sit afterwards. 01/28/23: progressing: able to walk at [place] without use of 4WW but did take rest breaks on benches when needed. 02/25/23: progressing: use to only be able walk 30% distance used to and now 50%. LTG Duration 04/07/23 progressing 02/25/23 Two Impairment Back/essence hip and groin/neck and arm pain Impairment Neck/arm pain rated 7/10. LBP essence groin pain rated 7/10. Short Term Goal (STG) Avoid having cortisone injections and relieve R neck/ arm pain. 01/14/23: Pain at R elbow 01/28/23: Progressing: no arm, neck, elbow pain today. 02/14/23: R elbow pain 6/10. 02/18/23: no R elbow pain arrival today. Initiated DNF isometric and lift. 02/21/23: R diffuse elbow pain rated 3-6/10. STG Duration 03/14/23 progressing Single Stroke Preformer Goal (LTG) Decrease LBP to 2-3/10 and be able to lift leg to put socks and lessen the feeling of weight in the legs so she can stand 20-30 minutes. 01/14/23: 8 hrs pain relief after last session. 01/28/23: 5/10 when put sock standing in LB, painfree sitting. Less feeling legs like brick. Able to walk at [place] without walker but took breaks sitting on benches. 02/21/23: R hip pain putting socks on is 01/28. 02/25/23: R hip pain decreased to 1/10 1st time in long time but cautious things doing, no stairs. LTG Duration 04/07/23 progressing 02/25/23 One Impairment Lacks self care HEP, pt has self care aquatic program. Short Term Goal (STG) Pt will be educated in proper Posture, transfers, and body mechanics to minimize LBP onset. 01/11/23: Educated pt in proper transfers and body mechanics. 01/17/23: time spent hip hinge mechanics STS with improved no UE support needed elevated table approx 20 01/28/23: GOAL MET: good hip hinge technique during sit standing and pivot to 18 chair without AD with her today. STG Duration 02/21/23 GOAL MET 01/28/23 Senior Care Goal (LTG) Pt will be educated in a self care HEP to improve mobility and core/neck stability to decrease pain. 01/17/23: time spend pillow use sleeping. Added supine fig 4, dawit stretch; seated piriformis stretch and STS, reviewed sciatic nerve glide- provided HOs 02/18/23: added DNF isometric w/ lift and wall posture, carryover back aligment during STS today. LTG Duration 04/07/23 progressing 02/18/23 Assessment Summary Assessment Pt reported no R hip pain or R elbow pain post manual this tx. She reports R hip has had reduction in pain 1/10 with activities and walking up to 50% improvement before feels pain. Physical Therapy Plan Frequency and Duration Frequency of Treatment 2x/Week Plan of Care Start Date 01/07/23 Plan of Care End Date 04/07/23 Therapeutic Interventions Therapeutic Interventions Home Exercise Program,Joint Mobilizations,Manual Therapy, Neuromuscular Re-education, Patient/Caregiver Education, Self-Care/Home Management,Soft Tissue Mobilization,Taping, Therapeutic Activities, Therapeutic Exercises Modalities Cold Pack/Ice Massage,Electric Stimulation,Hot Packs, Traction- Mechanical, Ultrasound Next Visit Focus/Plan Next Note Type Treatment Note Next Visit Plan Check response to use pillows hips sidelying, DNF lift and wall posture added. Monitor C/S & soft tissue @ elbow for tendonitis vs radiculopathy, & Lumbar soft tissue palp; assess strength hip/trunk/?shoulder. Improve thoracic mobility. Cont training for proper posture (sit/stand) and with daily activities. Focus on spine to decrease pain with walking. POC: Lumbar herniated disc rehab, cervical soft tissue/ neural dysfunction rehab. Manual: lumbar & Cervical traction, mob of T/S. Ex: Core and Cervical stab & ROM, pec stretch. Neural: Stab & Sciatic ( gentle), ?UE neural. Educ: Posture. Modalities: Education in pain managment, ?Ktape, MH/IFES.
--- NOTE | 2023-02-28 14:43 | PT.OTN ---
Current Diagnoses Pain in right shoulder (02/28/23) Cervicalgia (02/28/23) Low back pain, unspecified (02/28/23) Dorsalgia, unspecified (02/28/23) Pain in right arm (02/28/23) Physical Therapy Treatment Note PT-OP-A Visit Information Start: 01/04/23 18:27 Freq: Status: Active Protocol: Document 02/28/23 08:00 LRN (Rec: 02/28/23 08:48 LRN [id number]) Out-Patient Physical Therapy Visit Information Visit Information Visit Type Treatment Note Visit Note 09/28 after PN Visit Start Time 08:00 Visit Stop Time 08:40 Total Visit Minutes 40 Visit Number 11 Number of LOCUM TENENS Visits 1 Evaluation Information Evaluation Date 01/07/23 Precautions Precautions Multilevel DDD (L2-L3, L3-L4, L4-L5), depression, fibromyalgia PT-OP-B Current Condition Start: 01/04/23 18:27 Freq: Status: Active Protocol: Document 01/07/23 08:03 LRN (Rec: 01/07/23 08:52 LRN [id number]) Current Condition History of Current Condition Onset Date 1 yr ago. Current Complaints Essence LB, hip>thigh pain, groin pain, R neck/shoulder pain. History of Current Condition Pt reports the major problem is her spine. 5yr ago she was diagnosed with multiple pxs involving L2, L3, L4, L5 and was only able to tolerate water therapy for 2 yrs. She found it extremely helpful for 3 yrs. She was able to walk again. She now feels like her condition is back to what it was before having water therapy. Last year she tried to do what she did in the water previously and it was helpful but because of spousal illness and loss of her spouse, she was unable to continue her water exercise. Spouse last year. Pt reports her condition has progressively worsened and now she has pain in bilateral lower back, essence groin pelvic region, essence hips that radiates 1/[address] to knees (R>L ), and in the R neck/shoulder- brachium (pt is R handed). 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 Prior Treatments and Tests Five yrs ago did water therapy for 2 yrs. Two Chiropractor treatments. First time found helpful, not 2nd time (treatments 1.5 yrs ago and 3 months ago). 01/2021 MRI: Multilevel DDD ( L2-L3, L3-L4, L4-L5) with central canal narrowing L3-L4, L4-L5 and foraminal narrowing at L4-L5. Fissure noted in L5-S1 L foraminal annulus. Future Testing and Treatments Planned None Treatment Goals Patient/Caregiver Goals Pt goal is: - to avoid having cortisone injections in the spine; therefore wants to try PT to get better first, and to relieve R neck/arm pain. - Decrease LBP to 2-3/10 and be able to lift leg to put socks and lessen the feeling of weight in the legs so she can stand 20-30 minutes, -Be able to do activities without having to immediately sit afterwards. -No pain in R neck/shoulder/ arm. 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 Baseline Function- Recreation/Hobbies Quilter Current Functional Impairments (Reported) Functional Limitations- Mobility/Gait Can't stand do chores without having to immediately sit down . Sleeping is manageable. 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 PT-OP-C Subjective Start: 01/04/23 18:27 Freq: Status: Active Protocol: Document 02/28/23 08:00 LRN (Rec: 02/28/23 08:48 LRN [id number]) OP-PT Subjective Patient Comments Patient Comments US helped for only a couple hours last treatment. R hip pain is now worse, rated 6-7/ 10 with walking standng & lying on it, 9/10 with stair climbing lifting R leg first. Starting to have L hip pain with walking, lying on side. and tailbone is really hurting , rated 4/10 when up and walking. With Clamshell pain is from the L knee to buttock posteriolrly. Neck is great, no pain in neck. Patient Reported Progress Same PT-OP-H Neuro Start: 01/04/23 18:27 Freq: Status: Active Protocol: Document 01/14/23 08:54 LRN (Rec: 01/14/23 10:52 LRN [id number]) Deep Tendon Reflex & Clonus Assessment Deep Tendon Reflex Bilateral Tricep Deep Tendon Reflex 2+ Normal Bilateral Bicep Deep Tendon Reflex 2+ Normal PT-OP-J Posture/Palpation/Skin Start: 01/04/23 18:27 Freq: Status: Active Protocol: Document 01/11/23 15:03 LRN (Rec: 01/11/23 16:12 LRN [id number]) Palpation Assessment Location Thoracic region Palpation Location Thoracic T1-T6 Paraspinals and Spinous processes Palpation Findings Soft Tissue Tightness, Tenderness Palpation Details Spinous processess tender with PA glides. Shoulders Palpation Location Essence Deltoids Palpation Findings Tenderness Palpation Details General deltoids. Cervical region Palpation Location Subocciptal and paraspinals Palpation Findings Soft Tissue Tightness, Tenderness Palpation Details Tight L>R UT and paraspinals PT-OP-K Range of Motion Start: 01/04/23 18:27 Freq: Status: Active Protocol: Document 01/14/23 08:54 LRN (Rec: 01/14/23 09:35 LRN [id number]) Lumbar Spine Range of Motion Lumbar Spine Active Degrees Testing Position Standing Rotation Left 10 Rotation Right 0 Ankle and Foot Goniometric Range of Motion Ankle and Foot Right Active Testing Position Supine Dorsiflexion with Knee Extended 5 Plantarflexion 50 Left Active Testing Position Supine Dorsiflexion with Knee Extended 2 Plantarflexion 50 PT-OP-L Special Tests Start: 01/04/23 18:27 Freq: Status: Active Protocol: Document 01/11/23 15:03 LRN (Rec: 01/11/23 16:12 LRN [id number]) Special Tests Cervical Spine Special Tests Vertebral Artery Test Results - Right side, Lumbar Spine Special Tests Manual Traction Test Results + Comments Relief of pain PT-OP-M Strength Start: 01/04/23 18:27 Freq: Status: Active Protocol: Document 01/11/23 15:03 LRN (Rec: 01/11/23 16:12 LRN [id number]) Cervical Spine Strength Cervical Spine Manual Muscle Testing Testing Position Sitting Flexion (C1-2) 5 Normal Extension 5 Normal Rotation Left 3 Fair Rotation Right 3 Fair Lateral Flexion Left (C3) 5 Normal Lateral Flexion Right (C3) 5 Normal PT-OP-Q Treatments Start: 01/04/23 18:27 Freq: Status: Active Protocol: Document 02/28/23 08:00 LRN (Rec: 02/28/23 08:48 LRN [id number]) Therapeutic Exercises Supine Exercises Deep cervical Neck flexor Supine Exercise Name DNF training & Isometric hold then added lift Reps/Minutes DNF isometric hold (chin tuck) lift from table 2 sec x20 Comments good front neck muscle work and stretch back neck, painfree C. PROM stretch Supine Exercise Name Rotation Side bilateral Reps/Minutes 5' Prone Exercises ASHLEE Prone Exercise Name ASHLEE - I/S to do as HEP Reps/Minutes 15x Comments Cuing for painfree range Sidelying Exercises TA Tightening Sidelying Exercise Name Clamshell w/TA- added to HEP ( declined HO) Side left Equipment Used pillow between BLEs Reps/Minutes 4 sets of 5 reps. Comments Improved painfree post manual & knee/hip flexion 90/90, dec HS recruitment Sitting Exercises Yvan C. strengthenign Sitting Exercise Name Quick Review of C/S yvan strengthening Reps/Minutes 1' Manual Therapy Treatment Soft Tissue Mobilization back Body Location Essence QL, R>L lateral border of Sacrum, & Coccygeus ms Mobilization Type Strumming,Trigger Point Release Intensity/Depth Moderate Body Position Prone Comments Good tolerance with reduction of pain and good release of TrP's. Joint Mobilizations L/S Joint L/S Direction PA Grade I Body Position Prone Comments 6' T/S Joint T/S except held at T4-T5 Direction Rot Body Position Prone Reps/Duration 10' Manual Traction Lumbar Details L/S traction w/essence long leg axis distraction Body Position Prone Reps/Duration 3' Self-Care/Home Management Treatment Activities Self-Care/Home Management Activities Verbal I/S in ASHLEE ex 2-3x/day as tolerated. PT-OP-R Modalities Start: 01/04/23 18:27 Freq: Status: Active Protocol: Document 02/25/23 08:18 SP (Rec: 02/25/23 09:26 SP [id number]) Ultrasound Therapy Treatment R distal brachium Treatment Duration (minutes) 8 Patient Position Sidelying Coupling Medium Ultrasound Gel Applicator Size (cm2) 10 Mode Setting Pulsed Duty Cycle 50% Intensity Setting (w/cm2) 1.0 Comments Mid to Distal end of brachium posteriorly above olecranon process. 2' set up and locating area of US needed. PT-OP-T Assessment and Plan Start: 01/04/23 18:27 Freq: Status: Active Protocol: Document 02/28/23 08:00 LRN (Rec: 02/28/23 08:48 LRN [id number]) Physical Therapy Assessment Goals Three Impairment Decreased strength with decreased function Impairment JULIET 60, (40-59% impaired, score 40-59) Neck Disability 21 (40-59% impaired, score 20-29) UE QuickDASH 63.6 (60-795 impaired, score 60-79) Weakness LE's Short Term Goal (STG) Improve strength to improve function per JULIET score 20-39. 02/21/23: JULIET score is 48/50 ( 40-59% impaired, score 40-59). STG Duration 03/14/23 Met goal for improvement 02/21/23 Shipping Services Sales Representative Goal (LTG) Improve strength/endurance of LE's to be able to do activities (walking) without having to immediately sit afterwards. 01/28/23: progressing: able to walk at camp without use of 4WW but did take rest breaks on benches when needed. 02/25/23: progressing: use to only be able walk 30% distance used to and now 50%. LTG Duration 04/07/23 progressing 02/25/23 Two Impairment Back/essence hip and groin/neck and arm pain Impairment Neck/arm pain rated 7/10. LBP essence groin pain rated 7/10. Short Term Goal (STG) Avoid having cortisone injections and relieve R neck/ arm pain. 01/14/23: Pain at R elbow 01/28/23: Progressing: no arm, neck, elbow pain today. 02/14/23: R elbow pain 6/10. 02/18/23: no R elbow pain arrival today. Initiated DNF isometric and lift. 02/21/23: R diffuse elbow pain rated 3-6/10. STG Duration 03/14/23 progressing Retirement Goal (LTG) Decrease LBP to 2-3/10 and be able to lift leg to put socks and lessen the feeling of weight in the legs so she can stand 20-30 minutes. 01/14/23: 8 hrs pain relief after last session. 01/28/23: 5/10 when put sock standing in LB, painfree sitting. Less feeling legs like brick. Able to walk at camp without walker but took breaks sitting on benches. 02/21/23: R hip pain putting socks on is 7/10. 02/25/23: R hip pain decreased to 1/10 1st time in long time but cautious things doing, no stairs. LTG Duration 04/07/23 progressing 02/25/23 One Impairment Lacks self care HEP, pt has self care aquatic program. Short Term Goal (STG) Pt will be educated in proper Posture, transfers, and body mechanics to minimize LBP onset. 01/11/23: Educated pt in proper transfers and body mechanics. 01/17/23: time spent hip hinge mechanics STS with improved no UE support needed elevated table approx 20 01/28/23: GOAL MET: good hip hinge technique during sit standing and pivot to 18 chair without AD with her today. STG Duration 02/21/23 GOAL MET 01/28/23 Shipping Services Sales Representative Goal (LTG) Pt will be educated in a self care HEP to improve mobility and core/neck stability to decrease pain. 01/17/23: time spend pillow use sleeping. Added supine fig 4, dawit stretch; seated piriformis stretch and STS, reviewed sciatic nerve glide- provided HOs 02/18/23: added DNF isometric w/ lift and wall posture, carryover back aligment during STS today. 02/28/23: I/S pt in ASHLEE ex. LTG Duration 04/07/23 progressing 02/18/23 Assessment Summary Assessment Initially pt with + PSLR and UE/LE neural tension due to multilevel DDD (L2-L3, L3-L4, L4-L5). C/S and UE pain resolved except for R elbow pain. + response to manual treatment with decrease in hip pain from 6-7/10 to 2/10 and Coccyx pain from 4/10 to 0/10. Physical Therapy Plan Frequency and Duration Frequency of Treatment 2x/Week Plan of Care Start Date 01/07/23 Plan of Care End Date 04/07/23 Next Visit Focus/Plan Next Note Type Treatment Note Next Visit Plan C/S Pain resolved; focus on LB /hip pain. Issue HEP ASHLEE if + response. Assess reponse to STM & ex. Check response to use pillows hips sidelying, DNF lift and wall posture added. Monitor C/S & soft tissue @ elbow for tendonitis vs radiculopathy, & Lumbar soft tissue palp; assess strength hip/trunk/?shoulder. Improve thoracic mobility. Cont training for proper posture (sit/stand) and with daily activities. Focus on spine to decrease pain with walking. POC: Lumbar herniated disc rehab, cervical soft tissue/ neural dysfunction rehab. Manual: lumbar & Cervical traction, mob of T/S. Ex: Core and Cervical stab & ROM, pec stretch. Neural: Stab & Sciatic ( gentle), ?UE neural. Educ: Posture. Modalities: Education in pain managment, ?Ktape, MH/IFES.
--- NOTE | 2023-03-07 09:17 | PT.OTN ---
Current Diagnoses Pain in right shoulder (03/07/23) Cervicalgia (03/07/23) Low back pain, unspecified (03/07/23) Dorsalgia, unspecified (03/07/23) Pain in right arm (03/07/23) Physical Therapy Treatment Note PT-OP-A Visit Information Start: 01/04/23 18:27 Freq: Status: Active Protocol: Document 03/07/23 08:04 LRN (Rec: 03/07/23 08:47 LRN [id number]) Out-Patient Physical Therapy Visit Information Visit Information Visit Type Treatment Note Visit Note 10/29 after PN Visit Start Time 08:04 Visit Stop Time 08:46 Total Visit Minutes 42 Visit Number 12 Evaluation Information Evaluation Date 01/07/23 Precautions Precautions Multilevel DDD (L2-L3, L3-L4, L4-L5), depression, fibromyalgia PT-OP-B Current Condition Start: 01/04/23 18:27 Freq: Status: Active Protocol: Document 01/07/23 08:03 LRN (Rec: 01/07/23 08:52 LRN [id number]) Current Condition History of Current Condition Onset Date 1 yr ago. Current Complaints Essence LB, hip>thigh pain, groin pain, R neck/shoulder pain. History of Current Condition Pt reports the major problem is her spine. 5yr ago she was diagnosed with multiple pxs involving L2, L3, L4, L5 and was only able to tolerate water therapy for 2 yrs. She found it extremely helpful for 3 yrs. She was able to walk again. She now feels like her condition is back to what it was before having water therapy. Last year she tried to do what she did in the water previously and it was helpful but because of spousal illness and loss of her spouse, she was unable to continue her water exercise. Spouse last year. Pt reports her condition has progressively worsened and now she has pain in bilateral lower back, essence groin pelvic region, essence hips that radiates 1/[address] to knees (R>L ), and in the R neck/shoulder- brachium (pt is R handed). 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 Prior Treatments and Tests Five yrs ago did water therapy for 2 yrs. Two Chiropractor treatments. First time found helpful, not 2nd time (treatments 1.5 yrs ago and 3 months ago). 01/2021 MRI: Multilevel DDD ( L2-L3, L3-L4, L4-L5) with central canal narrowing L3-L4, L4-L5 and foraminal narrowing at L4-L5. Fissure noted in L5-S1 L foraminal annulus. Future Testing and Treatments Planned None Treatment Goals Patient/Caregiver Goals Pt goal is: - to avoid having cortisone injections in the spine; therefore wants to try PT to get better first, and to relieve R neck/arm pain. - Decrease LBP to 2-3/10 and be able to lift leg to put socks and lessen the feeling of weight in the legs so she can stand 20-30 minutes, -Be able to do activities without having to immediately sit afterwards. -No pain in R neck/shoulder/ arm. 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 Baseline Function- Recreation/Hobbies Quilter Current Functional Impairments (Reported) Functional Limitations- Mobility/Gait Can't stand do chores without having to immediately sit down . Sleeping is manageable. 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 PT-OP-C Subjective Start: 01/04/23 18:27 Freq: Status: Active Protocol: Document 03/07/23 08:04 LRN (Rec: 03/07/23 08:47 LRN [id number]) OP-PT Subjective Patient Comments Patient Comments Yesterday walking in grocery store, R toe caught on ground 6 times, causing her to stumble. Back and R hip has been feeling better. R hip pain rated 2/10, doing better since this last week. No L hip pain. Has been taking it easy by sitting not bending. PT-OP-H Neuro Start: 01/04/23 18:27 Freq: Status: Active Protocol: Document 01/14/23 08:54 LRN (Rec: 01/14/23 10:52 LRN [id number]) Deep Tendon Reflex & Clonus Assessment Deep Tendon Reflex Bilateral Tricep Deep Tendon Reflex 2+ Normal Bilateral Bicep Deep Tendon Reflex 2+ Normal PT-OP-J Posture/Palpation/Skin Start: 01/04/23 18:27 Freq: Status: Active Protocol: Document 01/11/23 15:03 LRN (Rec: 01/11/23 16:12 LRN [id number]) Palpation Assessment Location Thoracic region Palpation Location Thoracic T1-T6 Paraspinals and Spinous processes Palpation Findings Soft Tissue Tightness, Tenderness Palpation Details Spinous processess tender with PA glides. Shoulders Palpation Location Essence Deltoids Palpation Findings Tenderness Palpation Details General deltoids. Cervical region Palpation Location Subocciptal and paraspinals Palpation Findings Soft Tissue Tightness, Tenderness Palpation Details Tight L>R UT and paraspinals PT-OP-K Range of Motion Start: 01/04/23 18:27 Freq: Status: Active Protocol: Document 03/07/23 08:04 LRN (Rec: 03/07/23 09:02 LRN [id number]) Hip Goniometric Range of Motion Hip Right Passive Testing Position Supine Straight Leg Raise 40 Left Passive Testing Position Supine Straight Leg Raise 50 PT-OP-L Special Tests Start: 01/04/23 18:27 Freq: Status: Active Protocol: Document 01/11/23 15:03 LRN (Rec: 01/11/23 16:12 LRN [id number]) Special Tests Cervical Spine Special Tests Vertebral Artery Test Results - Right side, Lumbar Spine Special Tests Manual Traction Test Results + Comments Relief of pain PT-OP-M Strength Start: 01/04/23 18:27 Freq: Status: Active Protocol: Document 03/07/23 08:04 LRN (Rec: 03/07/23 09:16 LRN [id number]) Ankle/Foot Strength Ankle and Foot Manual Muscle Testing Right Plantarflexion (S1) 4+ Good+ Comments Strength 5/5 except as indicated above Left Plantarflexion (S1) 4+ Good+ Comments Strength 5/5 except as indicated above PT-OP-Q Treatments Start: 01/04/23 18:27 Freq: Status: Active Protocol: Document 03/07/23 08:04 LRN (Rec: 03/07/23 08:47 LRN [id number]) Therapeutic Exercises Prone Exercises POP (prone on pillows) Prone Exercise Name POP (prone on pillows) leg lifts Side bilateral Reps/Minutes 5x 2, 10x 1 Comments Cuing for core stab with lifts and head position to avoid neck pain ASHLEE Prone Exercise Name ASHLEE - also doing as HEP Reps/Minutes 15x 2 Comments Cuing for painfree range, full trunk ext motion-return to rest after lift Sidelying Exercises TA Tightening Sidelying Exercise Name Clamshell w/TA-(HEP accepted) Side bilateral Equipment Used pillow between BLEs Reps/Minutes TA - 10 SH x 10, Clamshell 1 sets of 15 reps. Comments Initially much cuing for lift of knee only and TA stab w/ knee lift Sitting Exercises sit stand Sitting Exercise Name Sit<>Stands Resistance arms across chest Reps/Minutes 8' Comments Much training needed for slow descent/more flex @ hip with sit. LE neural stretch Sitting Exercise Name Knee ext w/ankle DF- gave HO Side bilateral Reps/Minutes 10x of stretch f/b ankle DF Comments cued hip hinge time find max stretch-no pain Self-Care/Home Management Treatment Activities Self-Care/Home Management Activities Issues & reviewed HEP: Trunk ext progressive program starting with ASHLEE and leg lifts, and clamshell ex. PT-OP-R Modalities Start: 01/04/23 18:27 Freq: Status: Active Protocol: Document 02/25/23 08:18 SP (Rec: 02/25/23 09:26 SP [id number]) Ultrasound Therapy Treatment R distal brachium Treatment Duration (minutes) 8 Patient Position Sidelying Coupling Medium Ultrasound Gel Applicator Size (cm2) 10 Mode Setting Pulsed Duty Cycle 50% Intensity Setting (w/cm2) 1.0 Comments Mid to Distal end of brachium posteriorly above olecranon process. 2' set up and locating area of US needed. PT-OP-T Assessment and Plan Start: 01/04/23 18:27 Freq: Status: Active Protocol: Document 03/07/23 08:04 LRN (Rec: 03/07/23 08:47 LRN [id number]) Physical Therapy Assessment Goals Three Impairment Decreased strength with decreased function Impairment JULIET 60, (40-59% impaired, score 40-59) Neck Disability 21 (40-59% impaired, score 20-29) UE QuickDASH 63.6 (60-795 impaired, score 60-79) Weakness LE's Short Term Goal (STG) Improve strength to improve function per JULIET score 20-39. 02/21/23: JULIET score is 48/50 ( 40-59% impaired, score 40-59). STG Duration 03/14/23 Met goal for improvement 02/21/23 Director Decision Support Goal (LTG) Improve strength/endurance of LE's to be able to do activities (walking) without having to immediately sit afterwards. 01/28/23: progressing: able to walk at earp without use of 4WW but did take rest breaks on benches when needed. 02/25/23: progressing: use to only be able walk 30% distance used to and now 50%. 03/07/23: Able to walk in grocery store when parked close (handicapped spot) and shop (8-10 items) before having to sit. LTG Duration 04/07/23 progressing 03/07/23 Two Impairment Back/essence hip and groin/neck and arm pain Impairment Neck/arm pain rated 7/10. LBP essence groin pain rated 7/10. Short Term Goal (STG) Avoid having cortisone injections and relieve R neck/ arm pain. 01/14/23: Pain at R elbow 01/28/23: Progressing: no arm, neck, elbow pain today. 02/14/23: R elbow pain /10. 02/18/23: no R elbow pain arrival today. Initiated DNF isometric and lift. 02/21/23: R diffuse elbow pain rated 3-6/10. STG Duration 03/14/23 progressing Director Decision Support Goal (LTG) Decrease LBP to 2-3/10 and be able to lift leg to put socks and lessen the feeling of weight in the legs so she can stand 20-30 minutes. 01/14/23: 8 hrs pain relief after last session. 01/28/23: 5/10 when put sock standing in LB, painfree sitting. Less feeling legs like brick. Able to walk at earp without walker but took breaks sitting on benches. 02/21/23: R hip pain putting socks on is 7/10. 02/25/23: R hip pain decreased to 1/10 1st time in long time but cautious things doing, no stairs. 03/07/23: No change, sometimes can put socks/shoes on. LTG Duration 04/07/23 progressing 03/07/23 (met pn 2/10) One Impairment Lacks self care HEP, pt has self care aquatic program. Short Term Goal (STG) Pt will be educated in proper Posture, transfers, and body mechanics to minimize LBP onset. 01/11/23: Educated pt in proper transfers and body mechanics. 01/17/23: time spent hip hinge mechanics STS with improved no UE support needed elevated table approx 20 01/28/23: GOAL MET: good hip hinge technique during sit standing and pivot to 18 chair without AD with her today. STG Duration 02/21/23 GOAL MET 01/28/23 [facility] Goal (LTG) Pt will be educated in a self care HEP to improve mobility and core/neck stability to decrease pain. 01/17/23: time spend pillow use sleeping. Added supine fig 4, dawit stretch; seated piriformis stretch and STS, reviewed sciatic nerve glide- provided HOs 02/18/23: added DNF isometric w/ lift and wall posture, carryover back aligment during STS today. 02/28/23: I/S pt in ASHLEE ex. 03/07/23: HEP: ASHLEE, Prone leg lifts (trunk ext progressive program), Hamstring/LE neural stretch LTG Duration 04/07/23 progressing 03/07/23 Assessment Summary Assessment + response to prone ex's and last treatment, with lessening of R hip pain. Pt LBP/R hip pain is less, rated 2/10. No change in function of tolerance for walking or putting socks/shoes on. Pt did note catching of R toe several times with walking yesterday, but there is no apparent weakness of her ankle or toes; therefore possibly type of shoes she is wearing during the warm weather (foam clogs), may be slipping out of feet far enough to cause her to catch her toes. Physical Therapy Plan Frequency and Duration Frequency of Treatment 2x/Week Plan of Care Start Date 01/07/23 Plan of Care End Date 04/07/23 Next Visit Focus/Plan Next Note Type Treatment Note Next Visit Plan C/S Pain resolved; focus on LB /hip pain. Assess reponse to previously issued ex's. Check response to use pillows hips sidelying, DNF lift and wall posture added. Discuss pt's shoe type with walking (clogs vs shoes to hold heel). Improve thoracic mobility. Add core stab home ex. Assess strength hip/trunk/? shoulder. Monitor C/S & soft tissue @ elbow for tendonitis vs radiculopathy, & Lumbar soft tissue palp; Cont training for proper posture (sit/stand) and with daily activities. Focus on spine to decrease pain with walking. POC: Lumbar herniated disc rehab, cervical soft tissue/ neural dysfunction rehab. Manual: lumbar & Cervical traction, mob of T/S. Ex: Core and Cervical stab & ROM, pec stretch. Neural: Stab & Sciatic ( gentle), ?UE neural. Educ: Posture. Modalities: Education in pain managment, ?Ktape, MH/IFES.
--- NOTE | 2023-03-11 09:00 | PT.OTN ---
Current Diagnoses Pain in right shoulder (03/11/23) Cervicalgia (03/11/23) Low back pain, unspecified (03/11/23) Dorsalgia, unspecified (03/11/23) Pain in right arm (03/11/23) Physical Therapy Treatment Note PT-OP-A Visit Information Start: 01/04/23 18:27 Freq: Status: Active Protocol: Document 03/11/23 08:14 SP (Rec: 03/11/23 09:04 SP [id number]) Out-Patient Physical Therapy Visit Information Visit Information Visit Type Treatment Note Visit Note 11/28 after PN Visit Start Time 08:15 Visit Stop Time 09:00 Total Visit Minutes 45 Visit Number 13 Number of LEATHER STRETCHER Visits 1 Evaluation Information Evaluation Date 01/07/23 Precautions Precautions Multilevel DDD (L2-L3, L3-L4, L4-L5), depression, fibromyalgia PT-OP-B Current Condition Start: 01/04/23 18:27 Freq: Status: Active Protocol: Document 01/07/23 08:03 LRN (Rec: 01/07/23 08:52 LRN [id number]) Current Condition History of Current Condition Onset Date 1 yr ago. Current Complaints Essence LB, hip>thigh pain, groin pain, R neck/shoulder pain. History of Current Condition Pt reports the major problem is her spine. 5yr ago she was diagnosed with multiple pxs involving L2, L3, L4, L5 and was only able to tolerate water therapy for 2 yrs. She found it extremely helpful for 3 yrs. She was able to walk again. She now feels like her condition is back to what it was before having water therapy. Last year she tried to do what she did in the water previously and it was helpful but because of spousal illness and loss of her spouse, she was unable to continue her water exercise. Spouse last year. Pt reports her condition has progressively worsened and now she has pain in bilateral lower back, essence groin pelvic region, essence hips that radiates 1/[address] to knees (R>L ), and in the R neck/shoulder- brachium (pt is R handed). 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 Prior Treatments and Tests Five yrs ago did water therapy for 2 yrs. Two Chiropractor treatments. First time found helpful, not 2nd time (treatments 1.5 yrs ago and 3 months ago). 01/2021 MRI: Multilevel DDD ( L2-L3, L3-L4, L4-L5) with central canal narrowing L3-L4, L4-L5 and foraminal narrowing at L4-L5. Fissure noted in L5-S1 L foraminal annulus. Future Testing and Treatments Planned None Treatment Goals Patient/Caregiver Goals Pt goal is: - to avoid having cortisone injections in the spine; therefore wants to try PT to get better first, and to relieve R neck/arm pain. - Decrease LBP to 2-3/10 and be able to lift leg to put socks and lessen the feeling of weight in the legs so she can stand 20-30 minutes, -Be able to do activities without having to immediately sit afterwards. -No pain in R neck/shoulder/ arm. 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 Baseline Function- Recreation/Hobbies Quilter Current Functional Impairments (Reported) Functional Limitations- Mobility/Gait Can't stand do chores without having to immediately sit down . Sleeping is manageable. 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 PT-OP-C Subjective Start: 01/04/23 18:27 Freq: Status: Active Protocol: Document 03/11/23 08:14 SP (Rec: 03/11/23 09:04 SP [id number]) OP-PT Subjective Patient Comments Patient Comments Pt reports is on her 5th day without pain. She can swing legs in car without pain/ difficulty. She trialed reach over head to pick peaches, that didn't go well and still has back pain when bends over to get clothes deep in washing machine. Pt is leaving town for extended period of time, states will [place] next visit and can get new referral when returns if needed. PT-OP-H Neuro Start: 01/04/23 18:27 Freq: Status: Active Protocol: Document 01/14/23 08:54 LRN (Rec: 01/14/23 10:52 LRN [id number]) Deep Tendon Reflex & Clonus Assessment Deep Tendon Reflex Bilateral Tricep Deep Tendon Reflex 2+ Normal Bilateral Bicep Deep Tendon Reflex 2+ Normal PT-OP-J Posture/Palpation/Skin Start: 01/04/23 18:27 Freq: Status: Active Protocol: Document 01/11/23 15:03 LRN (Rec: 01/11/23 16:12 LRN [id number]) Palpation Assessment Location Thoracic region Palpation Location Thoracic T1-T6 Paraspinals and Spinous processes Palpation Findings Soft Tissue Tightness, Tenderness Palpation Details Spinous processess tender with PA glides. Shoulders Palpation Location Essence Deltoids Palpation Findings Tenderness Palpation Details General deltoids. Cervical region Palpation Location Subocciptal and paraspinals Palpation Findings Soft Tissue Tightness, Tenderness Palpation Details Tight L>R UT and paraspinals PT-OP-K Range of Motion Start: 01/04/23 18:27 Freq: Status: Active Protocol: Document 03/07/23 08:04 LRN (Rec: 03/07/23 09:02 LRN [id number]) Hip Goniometric Range of Motion Hip Right Passive Testing Position Supine Straight Leg Raise 40 Left Passive Testing Position Supine Straight Leg Raise 50 PT-OP-L Special Tests Start: 01/04/23 18:27 Freq: Status: Active Protocol: Document 01/11/23 15:03 LRN (Rec: 01/11/23 16:12 LRN [id number]) Special Tests Cervical Spine Special Tests Vertebral Artery Test Results - Right side, Lumbar Spine Special Tests Manual Traction Test Results + Comments Relief of pain PT-OP-M Strength Start: 01/04/23 18:27 Freq: Status: Active Protocol: Document 03/07/23 08:04 LRN (Rec: 03/07/23 09:16 LRN [id number]) Ankle/Foot Strength Ankle and Foot Manual Muscle Testing Right Plantarflexion (S1) 4+ Good+ Comments Strength 5/5 except as indicated above Left Plantarflexion (S1) 4+ Good+ Comments Strength 5/5 except as indicated above PT-OP-Q Treatments Start: 01/04/23 18:27 Freq: Status: Active Protocol: Document 03/11/23 08:14 SP (Rec: 03/11/23 09:04 SP [id number]) Therapeutic Exercises Supine Exercises Deep cervical Neck flexor Supine Exercise Name DNF training & Isometric hold then added lift Reps/Minutes DNF isometric hold (chin tuck) lift from table 2 sec x10 reps Comments good front neck muscle stabililzation, painfree Prone Exercises POP (prone on pillows) Prone Exercise Name POP (prone on pillows) leg lifts Side bilateral Reps/Minutes 10x 2 Comments occ cue TA draw in before lift awareness, improved with reps , good neck pos ASHLEE Prone Exercise Name ASHLEE - also doing as HEP Reps/Minutes x20 Comments Occ cue neck neutral, painfree throughout range Sidelying Exercises TA Tightening Sidelying Exercise Name Clamshell w/TA- HEP reviewed Side bilateral Equipment Used pillow between BLEs Reps/Minutes 3 SH x20 Comments occasional cue check in TA draw in, good form Sitting Exercises ankle strengthening Sitting Exercise Name added to HEP: DF, EV Side right Reps/Minutes 2x10 Comments cues set up and performance- support ft clearance sit stand Sitting Exercise Name Sit<>Stands Resistance arms across chest Reps/Minutes x10 reps, performs with better off toilet/chair/couch Comments cued slow eccentric sit. LE neural stretch Sitting Exercise Name Knee ext w/ankle DF- gave HO Side bilateral Reps/Minutes 10x of stretch f/b ankle DF Comments cued hip hinge time find max stretch-no pain Standing Exercises shoulder extension Standing Exercise Name added to HEP Resistance GTB Reps/Minutes 2x10 Comments cued elongated posture Wall Posture Standing Exercise Name HEP reviewed Resistance back to wall: head, shlds, pelvis Equipment Used towel behind neck Reps/Minutes 10 SH x5 reps Comments cued TA draw in LS toward wall , chin tuck/CS ext meet towel, Shld ERpalmfwd Neuro Re-Education Treatment Balance Activities hurdles Equipment 5 oval cushions, 6 hurdles Reps/Duration x4 laps Self-Care/Home Management Treatment Education Other Education added ankle DF, EV assist ft clearance with community mobility. added resisted shld ext support core fac. PT-OP-R Modalities Start: 01/04/23 18:27 Freq: Status: Active Protocol: Document 02/25/23 08:18 SP (Rec: 02/25/23 09:26 SP [id number]) Ultrasound Therapy Treatment R distal brachium Treatment Duration (minutes) 8 Patient Position Sidelying Coupling Medium Ultrasound Gel Applicator Size (cm2) 10 Mode Setting Pulsed Duty Cycle 50% Intensity Setting (w/cm2) 1.0 Comments Mid to Distal end of brachium posteriorly above olecranon process. 2' set up and locating area of US needed. PT-OP-T Assessment and Plan Start: 01/04/23 18:27 Freq: Status: Active Protocol: Document 03/11/23 08:14 SP (Rec: 03/11/23 09:04 SP [id number]) Physical Therapy Assessment Goals Three Impairment Decreased strength with decreased function Impairment JULIET 60, (40-59% impaired, score 40-59) Neck Disability 21 (40-59% impaired, score 20-29) UE QuickDASH 63.6 (60-795 impaired, score 60-79) Weakness LE's Short Term Goal (STG) Improve strength to improve function per JULIET score 20-39. 02/21/23: JULIET score is 48/50 ( 40-59% impaired, score 40-59). STG Duration 03/14/23 Met goal for improvement 02/21/23 Senior Dot Net Developer Goal (LTG) Improve strength/endurance of LE's to be able to do activities (walking) without having to immediately sit afterwards. 01/28/23: progressing: able to walk at camp without use of 4WW but did take rest breaks on benches when needed. 02/25/23: progressing: use to only be able walk 30% distance used to and now 50%. 03/07/23: Able to walk in grocery store when parked close (handicapped spot) and shop (8-10 items) before having to sit. 03/11/23: progressing: can go through whole [employer] at once without sitting. Used to be only do partial store and need to sit. LTG Duration 04/07/23 progressing 03/11/23 Two Impairment Back/essence hip and groin/neck and arm pain Impairment Neck/arm pain rated 7/10. LBP essence groin pain rated 7/10. Short Term Goal (STG) Avoid having cortisone injections and relieve R neck/ arm pain. 01/14/23: Pain at R elbow 01/28/23: Progressing: no arm, neck, elbow pain today. 02/14/23: R elbow pain 12/29. 02/18/23: no R elbow pain arrival today. Initiated DNF isometric and lift. 02/21/23: R diffuse elbow pain rated 3-6/10. 03/11/23: GOAL MET: no neck arm pain for past 5 days, did have pain in arms reaching over head picking peaches. She can swing legs into care without pain/issues. STG Duration 03/14/23 GOAL MET 03/11/23 Mcfp Goal (LTG) Decrease LBP to 2-3/10 and be able to lift leg to put socks and lessen the feeling of weight in the legs so she can stand 20-30 minutes. 01/14/23: 8 hrs pain relief after last session. 01/28/23: 5/10 when put sock standing in LB, painfree sitting. Less feeling legs like brick. Able to walk at camp without walker but took breaks sitting on benches. 02/21/23: R hip pain putting socks on is 7/10. 02/25/23: R hip pain decreased to 1/10 1st time in long time but cautious things doing, no stairs. 03/07/23: No change, sometimes can put socks/shoes on. 03/11/23: Progressing: low back less 2/10, can walk while [employer] without need sit due to pain but pain is worse if bends down get clothes out of washer, pull weeds. Still can't lift heavy objects and arms above head picking peaches and didn't go well. LTG Duration 04/07/23 progressing 03/11/23 (met pn 2/10) One Impairment Lacks self care HEP, pt has self care aquatic program. Short Term Goal (STG) Pt will be educated in proper Posture, transfers, and body mechanics to minimize LBP onset. 01/11/23: Educated pt in proper transfers and body mechanics. 01/17/23: time spent hip hinge mechanics STS with improved no UE support needed elevated table approx 20 01/28/23: GOAL MET: good hip hinge technique during sit standing and pivot to 18 chair without AD with her today. STG Duration 02/21/23 GOAL MET 01/28/23 Senior Dot Net Developer Goal (LTG) Pt will be educated in a self care HEP to improve mobility and core/neck stability to decrease pain. 01/17/23: time spend pillow use sleeping. Added supine fig 4, dawit stretch; seated piriformis stretch and STS, reviewed sciatic nerve glide- provided HOs 02/18/23: added DNF isometric w/ lift and wall posture, carryover back aligment during STS today. 02/28/23: I/S pt in ASHLEE ex. 03/07/23: HEP: ASHLEE, Prone leg lifts (trunk ext progressive program), Hamstring/LE neural stretch [id number]: added ankle DF, EV, resisted shld ext. LTG Duration 04/07/23 progressing 03/11/23 Assessment Summary Assessment Pt painfree response during HEP reviewed prone elbows and leg lifts, occasional cues for TA draw in with each rep awareness for spinal stabilization to continue limit LB recruitment. She reports does still have little R posterolateral R hip pain during STS but goes away with nerve tension glide. She responded well to added resisted ankle and shoulder ext strengthening for home. Improved stability with TA fac awareness with cues for elongated posture and softer step advancement during trial uneven lizzie stepping, improved stability to carryover endurance community mobililty. Physical Therapy Plan Frequency and Duration Frequency of Treatment 2x/Week Plan of Care Start Date 01/07/23 Plan of Care End Date 04/07/23 Therapeutic Interventions Therapeutic Interventions Home Exercise Program,Joint Mobilizations,Manual Therapy, Neuromuscular Re-education, Patient/Caregiver Education, Self-Care/Home Management,Soft Tissue Mobilization,Taping, Therapeutic Activities, Therapeutic Exercises Modalities Cold Pack/Ice Massage,Electric Stimulation,Hot Packs, Traction- Mechanical, Ultrasound Next Visit Focus/Plan Next Note Type Treatment Note Next Visit Plan Recheck added resisted ankle and resisted shld ext added last tx. Next visit last tx. Assess lifting mechanics, states still pain to lift laundry basket. POC: Discuss pt's shoe type with walking (clogs vs shoes to hold heel). Improve thoracic mobility. Add core stab home ex. Assess strength hip/trunk/? shoulder. Cont training for proper posture (sit/stand) and with daily activities. Focus on spine to decrease pain with walking. POC: Lumbar herniated disc rehab, cervical soft tissue/ neural dysfunction rehab. Manual: lumbar & Cervical traction, mob of T/S. Ex: Core and Cervical stab & ROM, pec stretch. Neural: Stab & Sciatic ( gentle), ?UE neural. Educ: Posture. Modalities: Education in pain managment, ?Ktape, MH/IFES.
--- NOTE | 2023-03-21 08:15 | PT.OTN ---
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 Current Complaints Essence LB, hip>thigh pain, groin pain, R neck/shoulder pain. History of Current Condition Pt reports the major problem is her spine. 5yr ago she was diagnosed with multiple pxs involving L2, L3, L4, L5 and was only able to tolerate water therapy for 2 yrs. She found it extremely helpful for 3 yrs. She was able to walk again. She now feels like her condition is back to what it was before having water therapy. Last year she tried to do what she did in the water previously and it was helpful but because of spousal illness and loss of her spouse, she was unable to continue her water exercise. Spouse last year. Pt reports her condition has progressively worsened and now she has pain in bilateral lower back, essence groin pelvic region, essence hips that radiates 1/[address] to knees (R>L ), and in the R neck/shoulder- brachium (pt is R handed). 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 Prior Treatments and Tests Five yrs ago did water therapy for 2 yrs. Two Chiropractor treatments. First time found helpful, not 2nd time (treatments 1.5 yrs ago and 3 months ago). 01/2021 MRI: Multilevel DDD ( L2-L3, L3-L4, L4-L5) with central canal narrowing L3-L4, L4-L5 and foraminal narrowing at L4-L5. Fissure noted in L5-S1 L foraminal annulus. Future Testing and Treatments Planned None Treatment Goals Patient/Caregiver Goals Pt goal is: - to avoid having cortisone injections in the spine; therefore wants to try PT to get better first, and to relieve R neck/arm pain. - Decrease LBP to 2-3/10 and be able to lift leg to put socks and lessen the feeling of weight in the legs so she can stand 20-30 minutes, -Be able to do activities without having to immediately sit afterwards. -No pain in R neck/shoulder/ arm. 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 Baseline Function- Recreation/Hobbies Quilter Current Functional Impairments (Reported) Functional Limitations- Mobility/Gait Can't stand do chores without having to immediately sit down . Sleeping is manageable. 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 PT-OP-C Subjective Start: 01/04/23 18:27 Freq: Status: Active Protocol: Document 03/21/23 07:30 SP (Rec: 03/21/23 08:21 SP [id number]) OP-PT Subjective Patient Comments Patient Comments Pt reports on a good day 2/10 pain and 6/10 on bad day posterolateral hip and take Tylenol and sohan when lays down . Improving 8 days without pain on a good day but after last grocery [employer] trip back hurt later in evening and needed take Tylenol to get relief. Going up steps having pain on R. Patient Questionnaires Neck Disability Index NDI Score 6 Neck Disability Index Impairment 1 to 19% Impaired (Score 1-9) Oswestry Low Back Index Oswestry Score 26 Oswestry Impairment 20 to 39% Impaired (Score 20- 39) Quick Dash- Upper Extremity Quick Dash UE Score 34.09 Quick Dash UE Impairment 20 to 39% Impaired (Score 20- 39) PT-OP-H Neuro Start: 01/04/23 18:27 Freq: Status: Active Protocol: Document 01/14/23 08:54 LRN (Rec: 01/14/23 10:52 LRN [id number]) Deep Tendon Reflex & Clonus Assessment Deep Tendon Reflex Bilateral Tricep Deep Tendon Reflex 2+ Normal Bilateral Bicep Deep Tendon Reflex 2+ Normal PT-OP-J Posture/Palpation/Skin Start: 01/04/23 18:27 Freq: Status: Active Protocol: Document 01/11/23 15:03 LRN (Rec: 01/11/23 16:12 LRN [id number]) Palpation Assessment Location Thoracic region Palpation Location Thoracic T1-T6 Paraspinals and Spinous processes Palpation Findings Soft Tissue Tightness, Tenderness Palpation Details Spinous processess tender with PA glides. Shoulders Palpation Location Essence Deltoids Palpation Findings Tenderness Palpation Details General deltoids. Cervical region Palpation Location Subocciptal and paraspinals Palpation Findings Soft Tissue Tightness, Tenderness Palpation Details Tight L>R UT and paraspinals PT-OP-K Range of Motion Start: 01/04/23 18:27 Freq: Status: Active Protocol: Document 03/07/23 08:04 LRN (Rec: 03/07/23 09:02 LRN [id number]) Hip Goniometric Range of Motion Hip Right Passive Testing Position Supine Straight Leg Raise 40 Left Passive Testing Position Supine Straight Leg Raise 50 PT-OP-L Special Tests Start: 01/04/23 18:27 Freq: Status: Active Protocol: Document 01/11/23 15:03 LRN (Rec: 01/11/23 16:12 LRN [id number]) Special Tests Cervical Spine Special Tests Vertebral Artery Test Results - Right side, Lumbar Spine Special Tests Manual Traction Test Results + Comments Relief of pain PT-OP-M Strength Start: 01/04/23 18:27 Freq: Status: Active Protocol: Document 03/07/23 08:04 LRN (Rec: 03/07/23 09:16 LRN [id number]) Ankle/Foot Strength Ankle and Foot Manual Muscle Testing Right Plantarflexion (S1) 4+ Good+ Comments Strength 5/5 except as indicated above Left Plantarflexion (S1) 4+ Good+ Comments Strength 5/5 except as indicated above PT-OP-Q Treatments Start: 01/04/23 18:27 Freq: Status: Active Protocol: Document 03/21/23 07:30 SP (Rec: 03/21/23 08:21 SP [id number]) Therapeutic Exercises Supine Exercises core heel slide Supine Exercise Name added to HEP: double leg Side bilateral Resistance AROM double leg Reps/Minutes x10 reps Comments cued TA/ PPT, range able ab engagement - good response, painfree LTR Supine Exercise Name REview self ROM Resistance AROM Reps/Minutes x10, 2 breath hold QL stretch Comments cued TA draw in during ROM, improved performance Prone Exercises POP (prone on pillows) Prone Exercise Name POP (prone on pillows) leg lifts Side bilateral Reps/Minutes 10 Comments good response and form ASHLEE Prone Exercise Name ASHLEE - also doing as HEP Reps/Minutes x10 Comments good response and form Sitting Exercises sit stand Sitting Exercise Name Sit<>Stands- discussed continue TA STS Resistance arms across chest Comments states helps with back support . Manual Therapy Treatment Soft Tissue Mobilization R hip Body Location piriformis, glut med Mobilization Type Sustained Pressure,Other Body Position Prone Comments w/ PROM hip IR/ ER Manual Traction Lumbar Details w/ mob strap at posterior calves Body Position Supine Reps/Duration 2' Comments good feedback back muscle releases. PT-OP-R Modalities Start: 01/04/23 18:27 Freq: Status: Active Protocol: Document 02/25/23 08:18 SP (Rec: 02/25/23 09:26 SP [id number]) Ultrasound Therapy Treatment R distal brachium Treatment Duration (minutes) 8 Patient Position Sidelying Coupling Medium Ultrasound Gel Applicator Size (cm2) 10 Mode Setting Pulsed Duty Cycle 50% Intensity Setting (w/cm2) 1.0 Comments Mid to Distal end of brachium posteriorly above olecranon process. 2' set up and locating area of US needed. PT-OP-T Assessment and Plan Start: 01/04/23 18:27 Freq: Status: Active Protocol: Document 03/21/23 07:30 SP (Rec: 03/21/23 08:21 SP [id number]) Physical Therapy Assessment Goals Three Impairment Decreased strength with decreased function Impairment JULIET 60, (40-59% impaired, score 40-59) Neck Disability 21 (40-59% impaired, score 20-29) UE QuickDASH 63.6 (60-795 impaired, score 60-79) Weakness LE's Short Term Goal (STG) Improve strength to improve function per JULIET score 20-39. 02/21/23: JULIET score is 48/50 ( 40-59% impaired, score 40-59). 03/21/23: JULIET Score 26 (20-39%) reduction 20%, Neck Disabililty score 6 (1-19% impaired) reduction of 30-40%, UE Quick Dash 34.09 (20-39% impaired) reduction by 50%. STG Duration 03/14/23 Met goal for improv 02/21/23, updated 03/21/23 Degreasing Solution Reclaimer Goal (LTG) Improve strength/endurance of LE's to be able to do activities (walking) without having to immediately sit afterwards. 01/28/23: progressing: able to walk at camp without use of 4WW but did take rest breaks on benches when needed. 02/25/23: progressing: use to only be able walk 30% distance used to and now 50%. 03/07/23: Able to walk in grocery store when parked close (handicapped spot) and shop (8-10 items) before having to sit. 03/11/23: progressing: can go through whole [employer] at once without sitting. Used to be only do partial store and need to sit. 03/21/23: Pt reports on a good day 2/10 pain and 6/10 on bad day posterolateral hip and take Tylenol and sohan when lays down. Improving 8 days without pain on a good day but after last grocery [employer] trip back hurt later in evening and needed take Tylenol to get relief. Going up steps having pain on R. LTG Duration 04/07/23 progressing 03/21/23 Two Impairment Back/essence hip and groin/neck and arm pain Impairment Neck/arm pain rated 7/10. LBP essence groin pain rated 7/10. Short Term Goal (STG) Avoid having cortisone injections and relieve R neck/ arm pain. 01/14/23: Pain at R elbow 01/28/23: Progressing: no arm, neck, elbow pain today. 02/14/23: R elbow pain 6/10. 02/18/23: no R elbow pain arrival today. Initiated DNF isometric and lift. 02/21/23: R diffuse elbow pain rated 3-6/10. 03/11/23: GOAL MET: no neck arm pain for past 5 days, did have pain in arms reaching over head picking peaches. She can swing legs into care without pain/issues. STG Duration 03/14/23 GOAL MET 03/11/23 Degreasing Solution Reclaimer Goal (LTG) Decrease LBP to 2-3/10 and be able to lift leg to put socks and lessen the feeling of weight in the legs so she can stand 20-30 minutes. 01/14/23: 8 hrs pain relief after last session. 01/28/23: 5/10 when put sock standing in LB, painfree sitting. Less feeling legs like brick. Able to walk at camp without walker but took breaks sitting on benches. 02/21/23: R hip pain putting socks on is 7/10. 02/25/23: R hip pain decreased to 1/10 1st time in long time but cautious things doing, no stairs. 03/07/23: No change, sometimes can put socks/shoes on. 03/11/23: Progressing: low back less 2/10, can walk while 3ROAM without need sit due to pain but pain is worse if bends down get clothes out of washer, pull weeds. Still can't lift heavy objects and arms above head picking peaches and didn't go well. 03/21/23: progressing: Has to sit down to put socks on but painfree. LBP lately 2/10 on good day and 6/10 bad day and has been up to 8 days 2/10 but yesterday standing cooking long time increased to 6/10 needed to sit. LTG Duration 04/07/23 progressing 03/21/23 (partial met 2/10, still bad days) One Impairment Lacks self care HEP, pt has self care aquatic program. Short Term Goal (STG) Pt will be educated in proper Posture, transfers, and body mechanics to minimize LBP onset. 01/11/23: Educated pt in proper transfers and body mechanics. 01/17/23: time spent hip hinge mechanics STS with improved no UE support needed elevated table approx 20 01/28/23: GOAL MET: good hip hinge technique during sit standing and pivot to 18 chair without AD with her today. STG Duration 02/21/23 GOAL MET 01/28/23 Degreasing Solution Reclaimer Goal (LTG) Pt will be educated in a self care HEP to improve mobility and core/neck stability to decrease pain. 01/17/23: time spend pillow use sleeping. Added supine fig 4, dawit stretch; seated piriformis stretch and STS, reviewed sciatic nerve glide- provided HOs 02/18/23: added DNF isometric w/ lift and wall posture, carryover back aligment during STS today. 02/28/23: I/S pt in ASHLEE ex. 03/07/23: HEP: ASHLEE, Prone leg lifts (trunk ext progressive program), Hamstring/LE neural stretch 03/11/23: added ankle DF, EV, resisted shld ext. 03/21/23: she states not always does exercises help back pain go away. Added double leg core heel slide. LTG Duration 04/07/23 progressing 03/21/23 Progress Towards Goals Progress Towards Goals Progressing Toward Goals Progress Comments 03/21/23: JULIET Score 26 (20-39%) reduction 20%, Neck Disabililty score 6 (1-19% impaired) reduction of 30-40%, UE Quick Dash 34.09 (20-39% impaired) reduction by 50%. Assessment Summary Assessment Pt making gains in no pain in neck or shoulders anymore. She is noticing decrease pain instances in LB and R hip up to 8 days but recently had pain in posterolateral R hip that stretching/ex didn't resolve and affecting walking. See measurable response to disability questionaire of improvements making in overall mobility with ADLs. She requests continue PT to gain more core strength has recently started and helping. Decrease R hip pain post manual and no adverse affects to added double leg core heel slide with cues for abdominal draw in range LEs can maintain engagement. Physical Therapy Plan Frequency and Duration Frequency of Treatment 2x/Week Plan of Care Start Date 01/07/23 Plan of Care End Date 04/07/23 Therapeutic Interventions Therapeutic Interventions Home Exercise Program,Joint Mobilizations,Manual Therapy, Neuromuscular Re-education, Patient/Caregiver Education, Self-Care/Home Management,Soft Tissue Mobilization,Taping, Therapeutic Activities, Therapeutic Exercises Modalities Cold Pack/Ice Massage,Electric Stimulation,Hot Packs, Traction- Mechanical, Ultrasound Next Visit Focus/Plan Next Note Type Progress Note Next Visit Plan Updated POC pre 04/07. Next tx: Recheck resisted shld ext, core fac double leg heel slide recently added and progress if able, continue prone TA exercises, review lifting mechanics, states still pain to lift laundry basket. POC: Discuss pt's shoe type with walking (clogs vs shoes to hold heel). Improve thoracic mobility. Add core stab home ex. Assess strength hip/trunk/? shoulder. Cont training for proper posture (sit/stand) and with daily activities. Focus on spine to decrease pain with walking. POC: Lumbar herniated disc rehab, cervical soft tissue/ neural dysfunction rehab. Manual: lumbar & Cervical traction, mob of T/S. Ex: Core and Cervical stab & ROM, pec stretch. Neural: Stab & Sciatic ( gentle), ?UE neural. Educ: Posture. Modalities: Education in pain managment, ?Ktape, MH/IFES.
--- NOTE | 2023-04-19 10:01 | PT-OP ANOTE ---
Msg left notifying pt that if she would like to return to therapy (next scheduled 04/22/23), that she would need a new referral as her POC has . Requested pt call back to notify PT dept as to being able to continue or cancel scheduled visit. Clinic number provided.
--- NOTE | 2023-04-19 16:20 | PT-OP ANOTE ---
received that pt called to cancel all her remaining visits. She will call back to schedule additional therapy once she has a new, updated referral; therefore pt to be discharged from therapy since new Plan of Care will be needed from a new referral.
--- NOTE | 2023-04-19 16:32 | PT.OPDS ---
Current Diagnoses Pain in right shoulder (03/21/23) Cervicalgia (03/21/23) Low back pain, unspecified (03/21/23) Dorsalgia, unspecified (03/21/23) Pain in right arm (03/21/23) Visit Care Team Role Provider Type Pinky Villafana DO Attending Provider Physician Family Provider Primary Care Provider Referring Provider Specialty: Medical Address: [address] [place] [address], [address], [place], [address] Email: [email or web address] Visit Number Visit Number [id number] Discharge Summary PT-OP-B Current Condition Start: 01/04/23 18:27 Freq: Status: Active Protocol: Document 01/07/23 08:03 LRN (Rec: 01/07/23 08:52 LRN [id number]) Current Condition History of Current Condition Onset Date 1 yr ago. Current Complaints Essence LB, hip>thigh pain, groin pain, R neck/shoulder pain. History of Current Condition Pt reports the major problem is her spine. 5yr ago she was diagnosed with multiple pxs involving L2, L3, L4, L5 and was only able to tolerate water therapy for 2 yrs. She found it extremely helpful for 3 yrs. She was able to walk again. She now feels like her condition is back to what it was before having water therapy. Last year she tried to do what she did in the water previously and it was helpful but because of spousal illness and loss of her spouse, she was unable to continue her water exercise. Spouse last year. Pt reports her condition has progressively worsened and now she has pain in bilateral lower back, essence groin pelvic region, essence hips that radiates 1/2 way to knees (R>L ), and in the R neck/shoulder- brachium (pt is R handed). 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 Prior Treatments and Tests Five yrs ago did water therapy for 2 yrs. Two Chiropractor treatments. First time found helpful, not 2nd time (treatments 1.5 yrs ago and 3 months ago). 01/2021 MRI: Multilevel DDD ( L2-L3, L3-L4, L4-L5) with central canal narrowing L3-L4, L4-L5 and foraminal narrowing at L4-L5. Fissure noted in L5-S1 L foraminal annulus. Future Testing and Treatments Planned None Treatment Goals Patient/Caregiver Goals Pt goal is: - to avoid having cortisone injections in the spine; therefore wants to try PT to get better first, and to relieve R neck/arm pain. - Decrease LBP to 2-3/10 and be able to lift leg to put socks and lessen the feeling of weight in the legs so she can stand 20-30 minutes, -Be able to do activities without having to immediately sit afterwards. -No pain in R neck/shoulder/ arm. 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 Baseline Function- Recreation/Hobbies Quilter Current Functional Impairments (Reported) Functional Limitations- Mobility/Gait Can't stand do chores without having to immediately sit down . Sleeping is manageable. 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 PT-OP-C Subjective Start: 01/04/23 18:27 Freq: Status: Active Protocol: Document 03/21/23 07:30 SP (Rec: 03/21/23 08:21 SP [id number]) OP-PT Subjective Patient Comments Patient Comments Pt reports on a good day 2/10 pain and 6/10 on bad day posterolateral hip and take Tylenol and sohan when lays down . Improving 8 days without pain on a good day but after last grocery [employer] trip back hurt later in evening and needed take Tylenol to get relief. Going up steps having pain on R. Patient Questionnaires Neck Disability Index NDI Score 6 Neck Disability Index Impairment 1 to 19% Impaired (Score 1-9) Oswestry Low Back Index Oswestry Score 26 Oswestry Impairment 20 to 39% Impaired (Score 20- 39) Quick Dash- Upper Extremity Quick Dash UE Score 34.09 Quick Dash UE Impairment 20 to 39% Impaired (Score 20- 39) PT-OP-H Neuro Start: 01/04/23 18:27 Freq: Status: Active Protocol: Document 01/14/23 08:54 LRN (Rec: 01/14/23 10:52 LRN [id number]) Deep Tendon Reflex & Clonus Assessment Deep Tendon Reflex Bilateral Tricep Deep Tendon Reflex 2+ Normal Bilateral Bicep Deep Tendon Reflex 2+ Normal PT-OP-J Posture/Palpation/Skin Start: 01/04/23 18:27 Freq: Status: Active Protocol: Document 01/11/23 15:03 LRN (Rec: 01/11/23 16:12 LRN [id number]) Palpation Assessment Location Thoracic region Palpation Location Thoracic T1-T6 Paraspinals and Spinous processes Palpation Findings Soft Tissue Tightness, Tenderness Palpation Details Spinous processess tender with PA glides. Shoulders Palpation Location Essence Deltoids Palpation Findings Tenderness Palpation Details General deltoids. Cervical region Palpation Location Subocciptal and paraspinals Palpation Findings Soft Tissue Tightness, Tenderness Palpation Details Tight L>R UT and paraspinals PT-OP-K Range of Motion Start: 01/04/23 18:27 Freq: Status: Active Protocol: Document 03/07/23 08:04 LRN (Rec: 03/07/23 09:02 LRN [id number]) Hip Goniometric Range of Motion Hip Right Passive Testing Position Supine Straight Leg Raise 40 Left Passive Testing Position Supine Straight Leg Raise 50 PT-OP-L Special Tests Start: 01/04/23 18:27 Freq: Status: Active Protocol: Document 01/11/23 15:03 LRN (Rec: 01/11/23 16:12 LRN [id number]) Special Tests Cervical Spine Special Tests Vertebral Artery Test Results - Right side, Lumbar Spine Special Tests Manual Traction Test Results + Comments Relief of pain PT-OP-M Strength Start: 01/04/23 18:27 Freq: Status: Active Protocol: Document 03/07/23 08:04 LRN (Rec: 03/07/23 09:16 LRN [id number]) Ankle/Foot Strength Ankle and Foot Manual Muscle Testing Right Plantarflexion (S1) 4+ Good+ Comments Strength 5/5 except as indicated above Left Plantarflexion (S1) 4+ Good+ Comments Strength 5/5 except as indicated above PT-OP-T Assessment and Plan Start: 01/04/23 18:27 Freq: Status: Active Protocol: Document 04/19/23 16:23 LRN (Rec: 04/19/23 16:32 LRN [id number]) Physical Therapy Assessment Goals Three Impairment Decreased strength with decreased function Impairment JULIET 60, (40-59% impaired, score 40-59) Neck Disability 21 (40-59% impaired, score 20-29) UE QuickDASH 63.6 (60-795 impaired, score 60-79) Weakness LE's Short Term Goal (STG) Improve strength to improve function per JULIET score 20-39. 02/21/23: JULIET score is 48/50 ( 40-59% impaired, score 40-59). 03/21/23: JULIET Score 26 (20-39%) reduction 20%, Neck Disabililty score 6 (1-19% impaired) reduction of 30-40%, UE Quick Dash 34.09 (20-39% impaired) reduction by 50%. STG Duration 03/14/23 Met goal for improv 02/21/23, updated 03/21/23 Criminal Justice Professor Goal (LTG) Improve strength/endurance of LE's to be able to do activities (walking) without having to immediately sit afterwards. 01/28/23: progressing: able to walk at camp without use of 4WW but did take rest breaks on benches when needed. 02/25/23: progressing: use to only be able walk 30% distance used to and now 50%. 03/07/23: Able to walk in grocery store when parked close (handicapped spot) and shop (8-10 items) before having to sit. 03/11/23: progressing[facility]. Used to be only do partial store and need to sit. 03/21/23: Pt reports on a good day 2/10 pain and 6/10 on bad day posterolateral hip and take Tylenol and sohan when lays down. Improving 8 days without pain on a good day but after last grocery [employer] trip back hurt later in evening and needed take Tylenol to get relief. Going up steps having pain on R. LTG Duration 04/07/23 progressing 03/21/23 Two Impairment Back/essence hip and groin/neck and arm pain Impairment Neck/arm pain rated 7/10. LBP essence groin pain rated 7/10. Short Term Goal (STG) Avoid having cortisone injections and relieve R neck/ arm pain. 01/14/23: Pain at R elbow 01/28/23: Progressing: no arm, neck, elbow pain today. 02/14/23: R elbow pain 6/10. 02/18/23: no R elbow pain arrival today. Initiated DNF isometric and lift. 02/21/23: R diffuse elbow pain rated 3-6/10. 03/11/23: GOAL MET: no neck arm pain for past 5 days, did have pain in arms reaching over head picking peaches. She can swing legs into care without pain/issues. STG Duration 03/14/23 GOAL MET 03/11/23 Criminal Justice Professor Goal (LTG) Decrease LBP to 2-3/10 and be able to lift leg to put socks and lessen the feeling of weight in the legs so she can stand 20-30 minutes. 01/14/23: 8 hrs pain relief after last session. 01/28/23: 5/10 when put sock standing in LB, painfree sitting. Less feeling legs like brick. Able to walk at camp without walker but took breaks sitting on benches. 02/21/23: R hip pain putting socks on is 7/10. 02/25/23: R hip pain decreased to 1/10 1st time in long time but cautious things doing, no stairs. 03/07/23: No change, sometimes can put socks/shoes on. 03/11/23: Progressing: low back less 2/10, can walk while [employer] without need sit due to pain but pain is worse if bends down get clothes out of washer, pull weeds. Still can't lift heavy objects and arms above head picking peaches and didn't go well. 03/21/23: progressing: Has to sit down to put socks on but painfree. LBP lately 2/10 on good day and 6/10 bad day and has been up to 8 days 2/10 but yesterday standing cooking long time increased to 6/10 needed to sit. LTG Duration 04/07/23 progressing 03/21/23 (partial met 2/10, still bad days) One Impairment Lacks self care HEP, pt has self care aquatic program. Short Term Goal (STG) Pt will be educated in proper Posture, transfers, and body mechanics to minimize LBP onset. 01/11/23: Educated pt in proper transfers and body mechanics. 01/17/23: time spent hip hinge mechanics STS with improved no UE support needed elevated table approx 20 01/28/23: GOAL MET: good hip hinge technique during sit standing and pivot to 18 chair without AD with her today. STG Duration 02/21/23 GOAL MET 01/28/23 Longterm Goal (LTG) Pt will be educated in a self care HEP to improve mobility and core/neck stability to decrease pain. 01/17/23: time spend pillow use sleeping. Added supine fig 4, dawit stretch; seated piriformis stretch and STS, reviewed sciatic nerve glide- provided HOs 02/18/23: added DNF isometric w/ lift and wall posture, carryover back aligment during STS today. 02/28/23: I/S pt in [facility] ex. 03/07/23: HEP: ASHLEE, Prone leg lifts (trunk ext progressive program), Hamstring/LE neural stretch 03/11/23: added ankle DF, EV, resisted shld ext. 03/21/23: she states not always does exercises help back pain go away. Added double leg core heel slide. LTG Duration 04/07/23 progressing 03/21/23 Assessment Summary Assessment Patient was last seen since and failed to return for her following visit that was before the end of her plan of care date. Patient's Plan of Care (POC) 04/07/23. On her last visit the pt was seen by Cheyenne Schultz PTA and found pt was making gains with no pain in neck or shoulders anymore. The pt was noticing decreased pain instances in LB and R hip up to 8 days. See measurable response to disability questionaire of improvements making in overall mobility with ADLs on 03/21/23. The pt wanted to continue PT to gain more core strengthening recently started. Since the pt is beyond her POC date she will need a new referral to return to physical therapy; therefore the pt is being discharged from PT, pt is aware. Physical Therapy Plan Discharge Physical Therapy Discharge Reasons No Longer Attending PT Discharge Comments Pt could benefit from further physical therapy but a new referral will be needed. Thank you for your referral.
== END 2023-06-25 12:27 | disposition home or self-care (01) ==
LOC: PHYS 07:30
PROVIDERS: Family Provider Family Medicine; PCP Family Medicine; Referring Provider Family Medicine; Visit Provider Family Medicine
DX: M54.2 Cervicalgia (principal); M79.601 Pain in right arm; M54.9 Dorsalgia, unspecified; M25.511 Pain in right shoulder; M54.50 Low back pain, unspecified
CPT/HCPCS: 97014; 97035; 97110; 97140; 97162; 97535; G0283

== ENCOUNTER → 2023-08-29 08:06 | Outpatient (CLI) | payer MEDICARE, OTHER, SELFPAY ==
[2023-08-29 09:15] LABS: Lithium < 0.2 mmol/L (0.6-1.2)
== END ==
PROVIDERS: Family Provider Family Medicine; PCP Family Medicine; Referring Provider Psychiatry & Neurology Psychiatry; Visit Provider Psychiatry & Neurology Psychiatry
DX: Z79.899 Other long term (current) drug therapy (principal)
CPT/HCPCS: 36415; 80178; 84443